=== PATIENT | female | born 1970 | race Caucasian/White ===

== ENCOUNTER 2016-05-28 08:22 | Inpatient (IN) | payer OTHER, MEDICARE ==
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
[2016-05-28] MEDS ORDERED: LORazepam 2 MG/ML VIAL IM ONE (09:15)
[2016-05-28] MEDS ORDERED: HALOPERIDOL LACTATE 5 MG/ML AMP IM ONE (09:15)
[2016-05-28] MEDS ORDERED: diphenhydrAMINE HCL 50 MG/ML VIAL IM ONE (09:15)
[2016-05-28 09:41] LABS: BACTERIA, URINE MANY /hpf; BLOOD, URINE NEG (NEG); COMMENT (UR) CULTURE INDICATED; CULTURE IF INDICATED CULTURE INDICATED; GLUCOSE,URINE NEG (NEG); HYALINE CAST, URINE 71 /lpf (RARE); KETONE, URINE TRACE mg/dL (NEG); MUCUS URINE MANY /lpf (OCC); NITRITE,URINE NEG (NEG); PH, URINE 5.5 (5.0-8.5); SQUAMOUS EPITHELIAL CELL URINE 38 /hpf (0-5); URINE COLOR YELLOW (YELLW/STRAW)
[2016-05-28 10:14] LABS: AMPHETAMINE, URINE NEG (NEG); BARBITURATES, URINE NEG (NEG); COCAINE, URINE NEG (NEG)
[2016-05-28 11:00] VITALS: BP 140/83; PULSE 100; RESP 20; TEMP 98.6; O2SAT 98
[2016-05-28 14:59] VITALS: BP 156/72; PULSE 86; RESP 16; O2SAT 98
[2016-05-28 20:43] LABS: AUTOMATED NEUTROPHIL # 10.9 TH/MM3 (1.8-7.7); BASOPHIL # 0.1 TH/MM3 (0-0.2); BASOPHIL % 0.6 % (0.0-2.0); EOSINOPHIL % 0.1 % (0.0-4.0); HEMATOCRIT 40.4 % (35.0-46.0); HEMO FLAGS DIFF FINAL; LYMPH % 20.1 % (9.0-44.0); LYMPHOCYTE # 3.1 TH/MM3 (1.0-4.8); MEAN CELL VOLUME 91.3 FL (80.0-100.0); MEAN CORPUSCULAR HEMOGLOBIN 29.6 PG (27.0-34.0); MEAN CORPUSCULAR HGB CONC 32.4 % (32.0-36.0); MONO % 8.9 % (0.0-8.0); NEUT % 70.3 % (16.0-70.0); PLATELET COUNT 305 TH/MM3 (150-450); RED BLOOD COUNT 4.42 MIL/MM3 (4.00-5.30); RED CELL DISTRIBUTION WIDTH 14.8 % (11.6-17.2); WHITE BLOOD COUNT 15.5 TH/MM3 (4.0-11.0)
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
[2016-05-28 21:06] LABS: ANION GAP 9 MEQ/L (5-15); AST (GOT) 21 U/L (15-37); BICARBONATE 24.4 MEQ/L (21.0-32.0); BLOOD UREA NITROGEN 6 MG/DL (7-18); CHLORIDE 103 MEQ/L (98-107); GLOMERULAR FILTRATION RATE 56 ML/MIN (>89); POTASSIUM 4.1 MEQ/L (3.5-5.1); SODIUM (NA) 136 MEQ/L (136-145)
[2016-05-28 21:09] LABS: ALKALINE PHOSPHATASE 96 U/L (45-117); ALT (GPT) 21 U/L (10-53); TOTAL BILIRUBIN ADULT 0.3 MG/DL (0.2-1.0)
[2016-05-29 02:56] VITALS: BP 118/83; PULSE 77; RESP 18; O2SAT 98
[2016-05-29 05:54] VITALS: BP 126/59; PULSE 79; RESP 18; TEMP 97.5; O2SAT 99
[2016-05-29 06:32] VITALS: BP_SYST 119; BP_SYST 124; BP_DIAS 56; BP_DIAS 80; PULSE 19; PULSE 72; PULSE 79; RESP 18; RESP 19; O2SAT 100; O2SAT 99
[2016-05-29 09:32] VITALS: BP 127/91; PULSE 108; RESP 18; O2SAT 97
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
[2016-05-29] MEDS ORDERED: LORazepam 2 MG/ML VIAL IV ONE (11:45)
[2016-05-29] MEDS ORDERED: LORazepam 2 MG/ML VIAL IM ONE ×2 (11:45→17:45)
[2016-05-29] MEDS ORDERED: diphenhydrAMINE HCL 50 MG/ML VIAL IM ONE ×2 (11:45→17:45)
[2016-05-29] MEDS ORDERED: ZIPRASIDONE MESYLATE 20 MG VIAL IM ONE ×2 (11:45→17:45)
[2016-05-29] MEDS ORDERED: MAGNESIUM HYDROXIDE SUSP 30 ML CUP PO PRN (16:15)
[2016-05-29] MEDS ORDERED: LORazepam 2 MG/ML VIAL IM PRN ×2 (16:15)
[2016-05-29] MEDS ORDERED: LORazepam 0.5 MG TAB PO PRN (16:15)
[2016-05-29] MEDS ORDERED: LORazepam 1 MG TAB PO PRN (16:15)
[2016-05-29] MEDS ORDERED: ALUMINUM/MAGNESIUM/SIMETH 30 ML CUP PO PRN (16:15)
[2016-05-29 18:45] VITALS: BP 143/70; PULSE 94; RESP 18; TEMP 97.7; O2SAT 98
[2016-05-30 06:09] VITALS: BP 174/76; PULSE 85; RESP 16; O2SAT 96
[2016-05-30] MEDS ORDERED: LORazepam 2 MG/ML VIAL IM ONE (09:00)
[2016-05-30] MEDS ORDERED: NICOTINE 21 MG/24 HR PATCH T-DERMAL SCH (09:00)
[2016-05-30] MEDS ORDERED: diphenhydrAMINE HCL 50 MG/ML VIAL IM ONE (09:00)
[2016-05-30] MEDS ORDERED: HALOPERIDOL LACTATE 5 MG/ML AMP IM ONE (09:00)
--- NOTE | 2016-05-30 12:12 | HHI.HP ---
Provisional Diagnosis Admission Date May 29, 2016 at 16:07 [place] I. 1. Schizophrenia, disorganized type, acute exacerbation [place] II. Deferred [place] V. GAF is 30 presently Certification of Person's Competence To Provide Express and Informed Consent I have personally examined Buddy Murguia , a person being served at [facility] on, May 30, 2016 12:12. Express and informed consent means consent voluntarily given in writing, by a competent person, after sufficient explanation and disclosure of the subject matter involved to enable the person to make a knowing and willful decision without any element of force, fraud, deceit, duress, or other form of constraint or coercion. This person is 18 years of age or older, is not now known to be incompetent to consent to treatment with a guardian advocate, and does not have a health care surrogate or proxy currently making medical treatment decisions. I have found this person to be one of the following: [] Competent to provide express and informed consent, as defined above, for voluntary admission to this facility and is competent to provide express and informed consent for treatment. He/she has the consistent capacity to make well reasoned, willful, and knowing decisions concerning his or her medical or mental health treatment. The person fully and consistently understands the purpose of the admission for examination/placement and is fully capable of personally exercising all rights assured under [place] [x] Incompetent to provide express and informed consent to voluntary admission, and this is incompetent to provide express and informed consent to treatment. The person must be transferred to involuntary status and a petition for a guardian advocate filed with the Circuit Court. [] Refusing to provide express and informed consent to voluntary admission but is competent to provide express and informed consent for treatment. The person must be discharged or transferred to involuntary status. Form shall be completed within 24 hours of a person's arrival at the receiving facility and filed in the clinical record of each person: 1. Admitted on a voluntary basis 2. Permitted to provide express and informed consent to his/her own treatment 3. Allowed to transfer from involuntary to voluntary status 4. Prior to permitting a person to consent to his or her own treatment after having been previously found incompetent to consent to treatment. History of Present Illness Capacity: Lacks Capacity HPI Ms. Dior is a 57-year-old female with a history of schizophrenia who was brought into the ED by caregivers from her custodial. Patient had apparently been having issues with severe agitation at the custodial and was extremely agitated in the ED requiring multiple PRNs. There may have been some degree of medication nonadherence. Patient was placed under a Ban[place] act by ED provider. Hope had been to stabilize the patient's condition in the ED to allow her to return to her facility, but unfortunately facility declined to accept the patient back. Patient is unable to care for herself and remains quite agitated and therefore has been admitted to the inpatient psychiatric unit. Reviewing the electronic medical record, it appears this is patient's first visit to [place]. Patient seen and examined with nurse. Chart reviewed. Case discussed with nursing staff. Prior to my arrival on the unit, the patient had grown extremely agitated again. Her behavior has apparently been very disorganized, for example urinating in the corner of her room. I ordered her medicated with Haldol 10 mg, Ativan 2 mg and Benadryl 50 mg IM stat. Upon my arrival on the unit a little while later, the patient has calmed significantly. She presents as quite childlike. When I ask why she has come into the hospital, she says "I' m not exactly sure." Her thought process is fairly disorganized. She denies any side effects from her PRNs. She denies any AVH but appears a little internally preoccupied. She denies any SI or HI. I do note there is a puddle of urine on the floor. She appears extremely disheveled and her room is in general disarray. Psychiatric interview is limited because of severity of patient's psychiatric symptoms. I obtained collateral information from patient's mother and stepfather at [phone]. They note that the patient has a long history of schizophrenia, diagnosed in adolescence, and has had multiple admissions to the [facility]. She has no history of suicide attempts. Her biological [facility] and likely had schizophrenia. Patient had normal pre-morbid development and IQ. Step-mother notes that she had no real prior issue with violence but the last 3 placements she had, she lost secondary to aggressive behavior. She notes patient does well with the clozapine but has had issues with non-adherence in the past. I am unable to obtain any past psychiatric, family, chemical dependency or social history from the patient because of her degree of psychiatric impairment at present. Review of Systems ROS Limitations: Psychotic, Poor Historian Except as stated in HPI: all other systems reviewed are Neg Past Psych History Psychological trauma history No reported trauma history to me Violence risk - others (6 mos) Elevated. Apparently, patient has of late been having issues with violent behavior. Violence risk - self (6 mos) Indeterminate. Patient denies SI and has no reported history of suicide attempts but is fairly unpredictable at present. Substance Abuse History Drugs/Alcohol past 12 months No known history of substance use issues Past Family Social History Coded Allergies: No Known Allergies (Unverified , 05/28/16) Past Medical History See EMR Reported Medications Oyster Shell (Oyster Calcium)500 Mg Tab1 Tab PO BID 05/28/16 Amlodipine 5 Mg Tab5 Mg PO DAILY #30 TAB Ref 0 05/28/16 Docusate Sodium 100 Mg Lxy825 Mg PO BID #60 CAP Ref 0 05/28/16 [place] Carbonate ER 450 Mg Cvl381 Mg PO HS Ref 0 05/28/16 [place] Carbonate ER 450 Mg Gbc348 Mg PO DAILY Ref 0 05/28/16 Trazodone 100 Mg Zct462 Mg PO HS #30 TAB Ref 0 05/28/16 Quetiapine 400 Mg Prn483 Mg PO BID #60 TAB Ref 0 05/28/16 Current Medications Medications (Trade) Dose Ordered Sig/Twila Route Start Time Stop Time Status Last Admin (Ativan) 1 mg Q6H PRN PO 05/29/16 16:15 (Ativan Inj) 1 mg Q6H PRN IM 05/29/16 16:15 (Ativan) 0.5 mg Q12H PRN PO 05/29/16 16:15 (Ativan Inj) 0.5 mg Q12H PRN IM 05/29/16 16:15 (Tylenol) 650 mg Q4H PRN PO 05/29/16 16:15 (Milk Of Magnesia Liq) 30 ml DAILY PRN PO 05/29/16 16:15 (Mag-Al Plus Susp Liq) 30 ml Q6H PRN PO 05/29/16 16:15 Family History See above Social History See above Patient's Strengths (min. 2) Supportive family. In a monitored setting. Physical Exam Physical examination was completed by the ED provider. On my examination today , the patient appears to be well-nourished and well-developed if somewhat disheveled and in no acute physical distress. No motor abnormalities noted. In particular no hand tremor, no dystonia, no dyskinesia noted. No cogwheeling or hypomimia. Vital Signs Vital Signs Date Time Temp Pulse Resp B/P Pulse Ox O2 Delivery O2 Flow Rate FiO2 05/30/16 06:09 85 16 174/76 96 05/29/16 18:45 97.7 05/29/16 09:32 Room Air Lab Results Item Value Date Time White Blood Count 15.5 TH/MM3 H 05/28/162029 Hemoglobin 13.1 GM/DL 05/28/162029 Platelet Count 305 TH/MM3 05/28/162029 Neutrophils # (Auto) 10.9 TH/MM3 H 05/28/162029 Sodium Level 136 MEQ/L 05/28/162029 Potassium Level 4.1 MEQ/L 05/28/162029 Chloride Level 103 MEQ/L 05/28/162029 Blood Urea Nitrogen 6 MG/DL L 05/28/162029 Creatinine 1.02 MG/DL H 05/28/162029 Random Glucose 130 MG/DL H 05/28/162029 Aspartate Amino Transf (AST/SGOT) 21 U/L 05/28/162029 Alanine Aminotransferase (ALT/SGPT) 21 U/L 05/28/162029 Alkaline Phosphatase 96 U/L 05/28/162029 [place] Level 0.7 MEQ/L 05/28/162029 Toxicology was negative. Patient has no signs or symptoms of infection. ANC is adequate for clozapine therapy. Urinalysis was concerning for possible UTI but urine culture revealed only mixed huong. Mental Status Examination Patient is casually dressed. She is fairly disheveled. She is awake and alert and oriented to person and hospital. No motor abnormalities noted. Speech is within normal limits for rate, tone and volume. Language and fund of knowledge seem reduced. Mood is fair and affect is childlike. Thought process disorganized. Associations somewhat loose. No josue delusions. Denies AVH but appears a little internally preoccupied. Denies SI or HI but is unreliable to contract for safety. Insight and judgment are poor. Assessment & Plan Problem List: (1) Schizophrenia ICD Code: F20.9 Assessment & Plan This is a 57-year-old female with psychiatric history as detailed above who is presently admitted to the inpatient psychiatric unit under a [place] act. Patient was apparently having issues with agitation at her facility, which continued while she was in the ED and now on the inpatient unit. There may be some issue with medication nonadherence, although her lithium level suggests at least some degree of medication adherence. I have reviewed the medication list from patient's facility, and we will try as a first step resuming most of her prescribed medications. Additional psychotropics may be necessary however, and we could also consider a long-acting injectable antipsychotic. Patient requires psychiatric admission at this time for safety, observation and stabilization. Admit inpatient. Involuntary status. I've completed first opinion. Consult for second opinion. Request healthcare surrogate and guardian advocate. Recheck CBC now along with bHCG. Check TFTs, lipid panel and HgbA1c tomorrow morning. Continue clozapine 200/100/200mg. CBC in 1 week. Continue lithium 450/900mg. Plan to check a level and repeat BMP end of the week. Continue trazodone 50mg qHS. I will hold the Seroquel to see if we can avoid unnecessary antipsychotic polypharmacy. Haldol as needed for agitation, Ativan as needed for anxiety, Cogentin as needed for EPS. Continue amlodipine. Continue Colace. Violent/assaultive precautions. Vitals every shift. Counselor to see. Disposition planning. Estimated length of stay: 1 to 2 months as it sounds like new placement will be required. Discharge Planning Pending psychiatric stabilization. Request HC Surrog/Guard Advoc?: Yes Problem Qualifiers (1) Schizophrenia: Qualified Code: F20.1 - Disorganized schizophrenia Cam Arshad MD May 30, 2016 12:12
[2016-05-30] MEDS ORDERED: BENZTROPINE MESYLATE 1 MG TAB PO PRN (12:45)
--- NOTE | 2016-05-30 16:10 | PD.CONS ---
Provisional Diagnosis Admission Date May 29, 2016 at 16:07 [place] I. 1. Schizophrenia, disorganized type, acute exacerbation [place] II. Deferred [place] V. GAF is 30 presently History of Present Illness Service Psychiatry Consult Requested By Primary Care Physician Unknown HPI As per Dr. Arshad documentation " Ms. Dior is a 57-year-old female with a history of schizophrenia who was brought into the ED by caregivers from her skilled nursing. Patient had apparently been having issues with severe agitation at the skilled nursing and was extremely agitated in the ED requiring multiple PRNs. There may have been some degree of medication nonadherence. Patient was placed under a [place] act by ED provider. Hope had been to stabilize the patient's condition in the ED to allow her to return to her facility, but unfortunately facility declined to accept the patient back. Patient is unable to care for herself and remains quite agitated and therefore has been admitted to the inpatient psychiatric unit. Reviewing the electronic medical record, it appears this is patient's first visit to [place].Patient seen and examined with nurse. Chart reviewed. Case discussed with nursing staff. Prior to my arrival on the unit, the patient had grown extremely agitated again. Her behavior has apparently been very disorganized, for example urinating in the corner of her room. I ordered her medicated with Haldol 10 mg, Ativan 2 mg and Benadryl 50 mg IM stat. Upon my arrival on the unit a little while later, the patient has calmed significantly. She presents as quite childlike. When I ask why she has come into the hospital, she says "I' m not exactly sure." Her thought process is fairly disorganized. She denies any side effects from her PRNs. She denies any AVH but appears a little internally preoccupied. She denies any SI or HI. I do note there is a puddle of urine on the floor. She appears extremely disheveled and her room is in general disarray. Psychiatric interview is limited because of severity of patient's psychiatric symptoms. I obtained collateral information from patient' s mother and stepfather at [phone]. They note that the patient has a long history of schizophrenia, diagnosed in adolescence, and has had multiple admissions to the [facility]. She has no history of suicide attempts. Her biological mother committed herself to the [facility] and likely had schizophrenia. Patient had normal pre-morbid development and IQ. Step-mother notes that she had no real prior issue with violence but the last 3 placements she had, she lost secondary to aggressive behavior. She notes patient does well with the clozapine but has had issues with non-adherence in the past. Today on psychotic evaluation patient is found in her room in the psychiatric unit, she reports feeling better, she reports good mood, patient is unable to elaborate about the circumstances that brought her to the hospital. She states that she was brought to the hospital because she was no doing well. She denies depressive symptoms, she denies suicidal and homicidal ideation, she denies visual and auditory hallucinations. Patient is fully oriented 3, with very concrete thought process and limited cognition. Review of Systems Constitutional: DENIES: Diaphoretic episodes, Fatigue, Fever, Weight gain, Weight loss, Chills, Dizziness, Change in appetite, Night Sweats Endocrine: DENIES: Abnorml menstrual pattern, Heat/cold intolerance, Polydipsia , Polyuria, Polyphagia Eyes: DENIES: Blurred vision, Diplopia, Eye inflammation, Eye pain, Vision loss , Photosensitivity, Double Vision Ears, nose, mouth, throat: DENIES: Tinnitus, Hearing loss, Vertigo, Nasal discharge, Oral lesions, Throat pain, Hoarseness, Ear Pain, Running Nose, Epistaxis, Sinus Pain, Toothache, Odynophagia Respiratory: DENIES: Apneas, Cough, Snoring, Wheezing, Hemoptysis, Sputum production, Shortness of breath Cardiovascular: DENIES: Chest pain, Palpitations, Syncope, Dyspnea on Exertion , PND, Lower Extremity Edema, Orthopnea, Claudication Genitourinary: DENIES: Abnormal vaginal bleeding, Dysmenorrhea, Dyspareunia, Sexual dysfunction, Urinary frequency, Urinary incontinence, Urgency, Hematuria , Dysuria, Nocturia, Vaginal discharge Musculoskeletal: DENIES: Joint pain, Muscle aches, Stiffness, Joint Swelling, Back pain, Neck pain Integumentary: DENIES: Abnormal pigmentation, Pruritus, Rash, Nail changes, Breast masses, Breast skin changes, Nipple discharge Hematologic/lymphatic: DENIES: Bruising, Lymphadenopathy Immunologic/allergic: DENIES: Eczema, Urticaria Neurologic: DENIES: Abnormal gait, Headache, Localized weakness, Paresthesias, Seizures, Speech Problems, Tremor, Poor Balance Psychiatric: DENIES: Anxiety, Confusion, Mood changes, Depression, Hallucinations, Agitation, Suicidal Ideation, Homicidal Ideation, Delusions Past Family Social History Coded Allergies: No Known Allergies (Unverified , 05/28/16) Reported Medications Oyster Shell (Oyster Calcium)500 Mg Tab1 Tab PO BID 05/28/16 Amlodipine 5 Mg Tab5 Mg PO DAILY #30 TAB Ref 0 05/28/16 Docusate Sodium 100 Mg [id number] Mg PO BID #60 CAP Ref 0 05/28/16 [place] Carbonate ER 450 Mg [id number] Mg PO HS Ref 0 05/28/16 [place] Carbonate ER 450 Mg Okf374 Mg PO DAILY Ref 0 05/28/16 Trazodone 100 Mg Yvo130 Mg PO HS #30 TAB Ref 0 05/28/16 Quetiapine 400 Mg Fpq870 Mg PO BID #60 TAB Ref 0 05/28/16 Current Medications Medications (Trade) Dose Ordered Sig/Twila Route Start Time Stop Time Status Last Admin (Tylenol) 650 mg Q4H PRN PO 05/29/16 16:15 (Milk Of Magnesia Liq) 30 ml DAILY PRN PO 05/29/16 16:15 (Mag-Al Plus Susp Liq) 30 ml Q6H PRN PO 05/29/16 16:15 (Ativan) 2 mg Q6H PRN PO 05/30/16 16:15 (Ativan Inj) 2 mg Q6H PRN IM 05/30/16 16:15 (Cogentin) 1 mg Q12HR PRN PO 05/30/16 12:45 (Cogentin Inj) 1 mg Q12HR PRN IM 05/30/16 12:45 (Haldol) 5 mg Q8H PRN PO 05/30/16 12:45 (Haldol Inj) 5 mg Q8H PRN IM 05/30/16 12:45 (Eskalith Sr) 450 mg DAILY PO 05/31/16 09:00 (Eskalith Sr) 900 mg HS PO 05/30/16 21:00 (Clozaril) 200 mg BID PO 05/30/16 21:00 (Clozaril) 100 mg DAILY@12 PO 05/31/16 12:00 (Colace) 100 mg BID PO 05/30/16 21:00 (Norvasc) 5 mg DAILY PO 05/31/16 09:00 (Desyrel) 50 mg HS PO 05/30/16 21:00 (Theragran) 1 tab DAILY PO 05/31/16 09:00 Patient's Strengths (min. 2) Supportive family. In a monitored setting. Physical Exam Vital Signs Vital Signs Date Time Temp Pulse Resp B/P Pulse Ox O2 Delivery O2 Flow Rate FiO2 05/30/16 06:09 85 16 174/76 96 05/29/16 18:45 97.7 05/29/16 09:32 Room Air Mental Status Examination Appearance Overweight woman, in street clothing, she is calm, superficially cooperative Assessment & Plan Problem List: (1) Schizophrenia ICD Code: F20.9 Assessment & Plan Estimated LOS: days Request HC Surrog/Guard Advoc?: Yes Problem Qualifiers (1) Schizophrenia: Qualified Code: F20.1 - Disorganized schizophrenia Avinash Son MD May 30, 2016 16:09
[2016-05-30 17:41] VITALS: BP 136/60; PULSE 89; RESP 17; TEMP 98.1; O2SAT 97
[2016-05-30] MEDS: DOCUSATE SODIUM 100 MG CAP PO SCH (20:40)
[2016-05-30] MEDS: cloZAPine 100 MG TAB PO SCH (20:40)
[2016-05-30] MEDS ORDERED: LITHIUM CARBONATE 450 MG CONTROLLED RELEASE TAB PO SCH (21:00)
[2016-05-30] MEDS ORDERED: traZODone HCL 50 MG TAB PO SCH (21:00)
[2016-05-31 06:13] VITALS: BP 139/62; PULSE 82; RESP 17; TEMP 98.3; O2SAT 96
[2016-05-31] MEDS ORDERED: LITHIUM CARBONATE 450 MG CONTROLLED RELEASE TAB PO SCH (09:00)
[2016-05-31] MEDS: cloZAPine 100 MG TAB PO SCH ×2 (09:00→20:43)
[2016-05-31] MEDS: amLODIPine BESYLATE 5 MG TAB PO SCH (09:00)
[2016-05-31] MEDS: MULTIVITAMIN TAB PO SCH (09:00)
[2016-05-31] MEDS: DOCUSATE SODIUM 100 MG CAP PO SCH ×2 (09:00→20:42)
--- NOTE | 2016-05-31 11:32 | HHI.PYPN ---
Subjective Remarks Patient seen and examined. Chart reviewed. Case discussed with nursing staff. Patient reportedly refused laboratories this morning and does not think that she needs to be in the hospital. She has been in fairly good behavioral control at this point. Medications are on hold awaiting consent. On my examination this morning, patient is sitting in the day area. Patient denies any psychiatric symptomatology. No SI or HI. Denies AVH. Says "I don't think I need medications. I don't have a mental illness." Review of Systems ROS Limitations: Psychotic, Poor Historian Except as stated in HPI: all other systems reviewed are Neg Objective Alert: Yes [place]: Person, Place (at least) Mood: Calm Affect: Other (childlike) Memory Intact: Comment (not formally assessed) Hallucinations: Other (internally preoccupied) Delusions: Yes Delusion Type: Paranoid Suicidal: Ideation Homicidal: Ideation (no HI) Insight/Judgement Very poor Remarks No motor abnormalities noted. Labs Date/Time Procedure Status Source Growth 05/28/16 09:10 Urine Culture - Final Complete Urine Clean Catch 10-50,000 CFU/ML MIXED GRAM POSITIVE ... Labs reviewed. Vitals/IOs Vital Signs Date Time Temp Pulse Resp B/P Pulse Ox O2 Delivery O2 Flow Rate FiO2 05/31/16 06:13 98.3 82 17 139/62 96 05/29/16 09:32 Room Air Assessment & Plan Problem List: (1) Schizophrenia ICD Code: F20.9 Assessment & Plan Nurse will call for consent for medications today. I do anticipate the patient may refuse these as her insight into illness is quite poor. If this is the case , we may opt to add in some Haldol PO/IM as she seems to respond nicely to this medication. Continue to monitor on the inpatient unit in the meantime. Continue other medications and care as ordered. Justification for Cont. Inpt. Impairment in reality construction. Impairment in self-care. Impairment in social functioning. High risk for decompensation in a less restrictive environment. Discharge Planning Placement following psychiatric stabilization. Request HC Surrog/Guard Advoc?: Yes Problem Qualifiers (1) Schizophrenia: Qualified Code: F20.1 - Disorganized schizophrenia Cam Arshad MD May 31, 2016 11:32
[2016-05-31] MEDS ORDERED: cloZAPine 100 MG TAB PO SCH (12:00)
[2016-05-31] MEDS ORDERED: HALOPERIDOL LACTATE 5 MG/ML AMP IM STA (13:03)
[2016-05-31] MEDS ORDERED: LORazepam 2 MG/ML VIAL IM ONE (13:15)
[2016-05-31] MEDS ORDERED: diphenhydrAMINE HCL 50 MG/ML VIAL IM ONE (13:15)
[2016-05-31 17:57] VITALS: BP 130/59; PULSE 84; RESP 18; TEMP 98.4; O2SAT 97
[2016-05-31] MEDS ORDERED: traZODone HCL 50 MG TAB PO SCH (21:00)
[2016-06-01 05:38] VITALS: BP 129/77; PULSE 100; RESP 18; TEMP 97.4; O2SAT 98
[2016-06-01] MEDS: MULTIVITAMIN TAB PO SCH (09:00)
[2016-06-01] MEDS: cloZAPine 100 MG TAB PO SCH (09:00)
[2016-06-01] MEDS ORDERED: LITHIUM CARBONATE 450 MG CONTROLLED RELEASE TAB PO SCH (09:00)
[2016-06-01] MEDS: DOCUSATE SODIUM 100 MG CAP PO SCH ×2 (09:00→20:15)
[2016-06-01] MEDS: amLODIPine BESYLATE 5 MG TAB PO SCH (09:00)
--- NOTE | 2016-06-01 10:06 | HHI.PYPN ---
Subjective Remarks Patient seen and examined with counselor and nurse. Chart reviewed. Case discussed with nursing staff reports that we did obtain consent for patient's medications, but she unfortunately has been declining to take them. On my examination today, the patient continues to deny that she has a mental illness. She says that she will not take meds for this reason. She is somewhat internally preoccupied and fairly childlike on examination but presently calm. Review of Systems ROS Limitations: Poor Historian Except as stated in HPI: all other systems reviewed are Neg Objective Alert: Yes [place]: Person, Place Mood: Calm Affect: Other (remains childlike) Memory Intact: Comment (not formally assessed) Hallucinations: Other (remains somewhat internally preoccupied) Delusions: No Delusion Type: Other (none elicited today) Suicidal: Ideation (no SI) Homicidal: Ideation (no HI) Insight/Judgement Poor Remarks No motor abnormalities noted. Grooming and hygiene fair at best. Labs Date/Time Procedure Status Source Growth 05/28/16 09:10 Urine Culture - Final Complete Urine Clean Catch 10-50,000 CFU/ML MIXED GRAM POSITIVE ... Labs reviewed. Vitals/IOs Vital Signs Date Time Temp Pulse Resp B/P Pulse Ox O2 Delivery O2 Flow Rate FiO2 05/31/16 17:57 98.4 84 18 130/59 97 05/29/16 09:32 Room Air Assessment & Plan Problem List: (1) Schizophrenia ICD Code: F20.9 Assessment & Plan Patient is refusing to accept oral psychotropics, and her existing psychotropic medications lithium and clozapine have no IM options. She has been responding nicely to Haldol when used as an ETO on the unit. I will start a scheduled Haldol titration PO with IM backup through the weekend with plans for Haldol Dec if this agent is efficacious. May consider re-introducing prior to admission medications if needed later if she gains some insight into the need for medications with the benefit of Haldol. Continue to monitor on the high acuity unit. Continue other medications and care as ordered. Justification for Cont. Inpt. Impairment in reality construction. Medication changes and process. High risk for decompensation in a less restrictive environment. Discharge Planning Placement following psychiatric stabilization. Request HC Surrog/Guard Advoc?: Yes Problem Qualifiers (1) Schizophrenia: Qualified Code: F20.1 - Disorganized schizophrenia Cam Arshad MD Jun 01, 2016 10:06
[2016-06-01] MEDS ORDERED: HALOPERIDOL LACTATE 5 MG/ML AMP IM PRN (10:15)
[2016-06-01] MEDS ORDERED: cloZAPine 100 MG TAB PO SCH (12:00)
[2016-06-01 18:00] VITALS: BP 162/96; PULSE 91; RESP 18; TEMP 98.3; O2SAT 98
[2016-06-01] MEDS: HALOPERIDOL 5 MG TAB PO SCH (20:15)
[2016-06-02] MEDS: diphenhydrAMINE HCL 50 MG CAP PO PRN (01:38)
[2016-06-02 05:54] VITALS: BP 137/84; PULSE 78; RESP 18; TEMP 97.3; O2SAT 99
[2016-06-02] MEDS: DOCUSATE SODIUM 100 MG CAP PO SCH ×2 (08:50→21:16)
[2016-06-02] MEDS: HALOPERIDOL 5 MG TAB PO SCH ×2 (08:50→21:16)
[2016-06-02] MEDS: amLODIPine BESYLATE 5 MG TAB PO SCH (08:50)
[2016-06-02] MEDS: MULTIVITAMIN TAB PO SCH (08:50)
--- NOTE | 2016-06-02 11:51 | HHI.PYPN ---
Subjective Remarks Continues to be markedly resistant to treatment, including taking her medications. Insight and judgment are markedly impaired. Does not acknowledge her own mental illness. Review of Systems ROS Limitations: Clinical Condition Objective Alert: Yes [place]: Person, Place Mood: Oppositional Affect: Restricted, Other (remains childlike) Memory Intact: Comment (not formally assessed) Hallucinations: Other (remains somewhat internally preoccupied) Delusions: Yes Delusion Type: Other (none elicited today) Suicidal: Ideation (no SI) Homicidal: Ideation (no HI) Insight/Judgment Markedly impaired Vitals/IOs Vital Signs Date Time Temp Pulse Resp B/P Pulse Ox O2 Delivery O2 Flow Rate FiO2 06/02/16 05:54 97.3 78 18 137/84 99 05/29/16 09:32 Room Air Assessment & Plan Problem List: (1) Schizophrenia ICD Code: F20.9 Assessment & Plan Estimated LOS: 7 days patient continues to be oppositional and noncompliant with poor judgment and poor insight. Does not acknowledge her own mental illness of schizophrenia and does not wish to comply with taking medications as ordered. Justification for Cont. Inpt. Patient remains psychotic and unable to care for herself. Request HC Surrog/Guard Advoc?: Yes Problem Qualifiers (1) Schizophrenia: Qualified Code: F20.1 - Disorganized schizophrenia Wilberto Sheridan MD Jun 02, 2016 11:50
[2016-06-02 19:01] VITALS: BP 156/72; PULSE 74; RESP 18; TEMP 97.9; O2SAT 98
[2016-06-03 05:51] VITALS: BP 142/76; PULSE 83; RESP 16; TEMP 97.7; O2SAT 100
[2016-06-03 09:13] LABS: BICARBONATE 24.3 MEQ/L (21.0-32.0); POTASSIUM 3.9 MEQ/L (3.5-5.1)
[2016-06-03] MEDS: MULTIVITAMIN TAB PO SCH (10:03)
[2016-06-03] MEDS: HALOPERIDOL 5 MG TAB PO SCH ×2 (10:03→21:46)
[2016-06-03] MEDS: amLODIPine BESYLATE 5 MG TAB PO SCH (10:03)
[2016-06-03] MEDS: DOCUSATE SODIUM 100 MG CAP PO SCH ×2 (10:03→21:46)
[2016-06-03 17:00] VITALS: BP 131/77; PULSE 85; RESP 24; TEMP 98; O2SAT 98
--- NOTE | 2016-06-03 17:54 | HHI.PYPN ---
Subjective Remarks Patient was seen and case discussed with nursing. Patient is at times not adherent with medication spitting it out but compliant with instructions to take it afterwards. She remains internally stimulated and laughs inappropriately at various comments. It was noted that on May 28 her UA suggested a culture no repeated today. Insight remains poor and cognitive delay is evident Objective Alert: Yes [place]: Person, Place Mood: Oppositional Affect: Blunted, Other (remains childlike) Memory Intact: Comment (not formally assessed) Hallucinations: Other (internally preoccupied) Delusions: Yes Delusion Type: Other (none elicited today) Suicidal: Ideation (no SI) Homicidal: Ideation (no HI) Insight/Judgment Poor Labs Test 06/03/16 07:50 Sodium Level 142 MEQ/L Potassium Level 3.9 MEQ/L Chloride Level 109 MEQ/L Carbon Dioxide Level 24.3 MEQ/L Anion Gap 9 MEQ/L Blood Urea Nitrogen 9 MG/DL Creatinine 0.70 MG/DL Estimat Glomerular Filtration 87 ML/MIN Rate Random Glucose 101 MG/DL Calcium Level 9.0 MG/DL Beta HCG, Qualitative LESS THAN 1 MIU/ML Jal Level LESS THAN 0.1 MEQ/L Vitals/IOs Vital Signs Date Time Temp Pulse Resp B/P Pulse Ox O2 Delivery O2 Flow Rate FiO2 06/03/16 17:00 98.0 85 24 131/77 98 Assessment & Plan Problem List: (1) Schizophrenia ICD Code: F20.9 Assessment & Plan Continue current treatment plan Justification for Cont. Inpt. Patient will decompensate in a less restrictive setting Request HC Surrog/Guard Advoc?: Yes Problem Qualifiers (1) Schizophrenia: Qualified Code: F20.1 - Disorganized schizophrenia Carlos Larry DO Jun 03, 2016 17:54
[2016-06-03 20:58] LABS: AUTOMATED NEUTROPHIL # 8.5 TH/MM3 (1.8-7.7); BASOPHIL # 0.1 TH/MM3 (0-0.2); BASOPHIL % 0.6 % (0.0-2.0); HEMO FLAGS DIFF FINAL; LYMPH % 28.1 % (9.0-44.0); LYMPHOCYTE # 3.7 TH/MM3 (1.0-4.8); MEAN CELL VOLUME 90.3 FL (80.0-100.0); MEAN CORPUSCULAR HEMOGLOBIN 30.7 PG (27.0-34.0); MONO % 7.5 % (0.0-8.0); NEUT % 63.8 % (16.0-70.0); PLATELET COUNT 317 TH/MM3 (150-450); RED BLOOD COUNT 4.09 MIL/MM3 (4.00-5.30); RED CELL DISTRIBUTION WIDTH 15.5 % (11.6-17.2); WHITE BLOOD COUNT 13.3 TH/MM3 (4.0-11.0)
[2016-06-04 05:46] VITALS: BP 136/74; PULSE 90; RESP 17; TEMP 97.1; O2SAT 98
[2016-06-04] MEDS: amLODIPine BESYLATE 5 MG TAB PO SCH (09:04)
[2016-06-04] MEDS: HALOPERIDOL 5 MG TAB PO SCH ×2 (09:04→21:40)
[2016-06-04] MEDS: MULTIVITAMIN TAB PO SCH (09:04)
[2016-06-04] MEDS: DOCUSATE SODIUM 100 MG CAP PO SCH ×2 (09:05→21:39)
--- NOTE | 2016-06-04 18:55 | HHI.PYPN ---
Subjective Remarks Patient was seen and case discussed with nursing. Urinalysis is still pending. Today patient is markedly more seclusive. She was asked if she had any triggering event and she answers no. She is flat, hyperverbal, with poor eye contact. She is stated in her room all day and not had any meals whatsoever. Denies suicidal ideation intent or plan. Compliant with medications Objective Alert: Yes [place]: Person, Place Mood: Depressed Affect: Flat, Other (remains childlike) Memory Intact: Comment (not formally assessed) Hallucinations: Other (internally preoccupied) Delusions: Yes Delusion Type: Other (none elicited today) Suicidal: Ideation (no SI) Homicidal: Ideation (no HI) Insight/Judgment Poor Labs Test 06/03/16 20:12 White Blood Count 13.3 TH/MM3 Red Blood Count 4.09 MIL/MM3 Hemoglobin 12.6 GM/DL Hematocrit 37.0 % Mean Corpuscular Volume 90.3 FL Mean Corpuscular Hemoglobin 30.7 PG Mean Corpuscular Hemoglobin 34.0 % Concent Red Cell Distribution Width 15.5 % Platelet Count 317 TH/MM3 Mean Platelet Volume 10.8 FL Neutrophils (%) (Auto) 63.8 % Lymphocytes (%) (Auto) 28.1 % Monocytes (%) (Auto) 7.5 % Eosinophils (%) (Auto) 0.0 % Basophils (%) (Auto) 0.6 % Neutrophils # (Auto) 8.5 TH/MM3 Lymphocytes # (Auto) 3.7 TH/MM3 Monocytes # (Auto) 1.0 TH/MM3 Eosinophils # (Auto) 0.0 TH/MM3 Basophils # (Auto) 0.1 TH/MM3 CBC Comment DIFF FINAL Differential Comment Vitals/IOs Vital Signs Date Time Temp Pulse Resp B/P Pulse Ox O2 Delivery O2 Flow Rate FiO2 06/04/16 05:46 97.1 90 17 136/74 98 Assessment & Plan Problem List: (1) Schizophrenia ICD Code: F20.9 Assessment & Plan Continue current treatment plan Justification for Cont. Inpt. Patient will decompensate in a less restrictive setting Request HC Surrog/Guard Advoc?: Yes Problem Qualifiers (1) Schizophrenia: Qualified Code: F20.1 - Disorganized schizophrenia Carlos Larry DO Jun 04, 2016 18:55
[2016-06-04] MEDS: diphenhydrAMINE HCL 50 MG CAP PO PRN ×2 (20:38→21:39)
[2016-06-05] MEDS: HALOPERIDOL 10 MG TAB PO PRN ×2 (04:43→14:21)
[2016-06-05] MEDS: LORazepam 1 MG TAB PO PRN ×2 (04:46→14:22)
[2016-06-05] MEDS: HALOPERIDOL 5 MG TAB PO SCH ×2 (08:26→21:51)
[2016-06-05] MEDS: DOCUSATE SODIUM 100 MG CAP PO SCH ×2 (08:26→21:51)
[2016-06-05] MEDS: MULTIVITAMIN TAB PO SCH (08:26)
[2016-06-05] MEDS: amLODIPine BESYLATE 5 MG TAB PO SCH (08:26)
--- NOTE | 2016-06-05 10:45 | HHI.PYPN ---
Subjective Remarks Patient seen and examined with counselor and nurse. Chart reviewed. Case discussed with nursing staff who reports patient has been compliant with medications and has been having fewer behavioral outbursts since she was started on the Haldol. She was reportedly complaining of some flank pain over the weekend and a hospitalist consultation has been requested. A urinalysis was ordered at the same time, but this is still listed in process and so I am not sure if it was ever collected. On my examination today, the patient is calm and pleasant as somewhat childlike. She denies any audiovisual hallucinations. No SI or HI. She is a somewhat poor historian for the review of systems but denies any dysuria or flank pain at this time. Denies side effects from medications. Review of Systems Except as stated in HPI: all other systems reviewed are Neg Objective Alert: Yes [place]: Person, Place ([place]) Mood: Calm Affect: Other (childlike) Memory Intact: Comment (not formally assessed) Hallucinations: Other (no AVH at this time) Delusions: No Delusion Type: Other (no delusions) Suicidal: Ideation (no SI) Homicidal: Ideation (no HI) Insight/Judgment Poor Remarks No motor abnormalities noted. No hand tremor, no cogwheeling, no dystonia, no dyskinesia noted. Labs Labs reviewed. Vitals/IOs Vital Signs Date Time Temp Pulse Resp B/P Pulse Ox O2 Delivery O2 Flow Rate FiO2 06/04/16 05:46 97.1 90 17 136/74 98 Assessment & Plan Problem List: (1) Schizophrenia ICD Code: F20.9 Assessment & Plan Check a urinalysis with culture. Awaiting hospitalist specialty development consultant input. Continue oral Haldol for now until we get the medical issues sorted out, and then we could consider Haldol Decanoate, hopefully within the next day or 2. Continue to monitor on the inpatient unit. Continue other medications and care as ordered. Justification for Cont. Inpt. High risk for decompensation in a less restrictive environment Discharge Planning Patient will likely require new placement. Case discussed with counselor. Request HC Surrog/Guard Advoc?: Yes Problem Qualifiers (1) Schizophrenia: Qualified Code: F20.1 - Disorganized schizophrenia Cam Arshad MD Jun 05, 2016 10:45
[2016-06-05] MEDS: ACETAMINOPHEN 325 MG TAB PO PRN ×2 (12:16→17:51)
--- NOTE | 2016-06-05 14:23 | PD.CONS ---
HPI [facility] Consult Requested By Dr. Perez Reason for Consult Medical management, elevated WBC and Right flank pain Primary Care Physician Unknown Diagnoses: History of Present Illness 57 y/o female with a history of schizophrenia [facility] due to severe agitation. She is now being managed in the psychiatric department for schizophrenia. According to psychiatry there was some nonadherence of medications at the jail. [facility] is being consulted for medical management, elevated WBC and right flank pain. According to the RN she complained of right flank pain and polyuria last night. Patient was seen and examined in her room. She states the pain in her right flank is much better, and she is able to walk with no complaints. She denies any dysuria, polyuria, fever or chills. She also denies any chest pain, sob, nausea or abdominal pain. Review of Systems Constitutional: DENIES: Fever, Chills, Dizziness Respiratory: DENIES: Cough, Shortness of breath Cardiovascular: DENIES: Chest pain, Lower Extremity Edema Gastrointestinal: DENIES: Abdominal pain, Difficulty Swallowing Genitourinary: DENIES: Urgency, Dysuria Musculoskeletal: DENIES: Back pain, Neck pain Hematologic/lymphatic: DENIES: Lymphadenopathy Immunologic/allergic: DENIES: Urticaria Neurologic: DENIES: Headache, Localized weakness Past Family Social History Allergies: Coded Allergies: No Known Allergies (Unverified , 05/28/16) Past Medical History Schizophrenia Past Surgical History Patient denies any surgical history Reported Medications Reported Meds & Active Scripts Active Reported Oyster Calcium (Oyster Shell) 500 Mg Tab 1 Tab PO BID Amlodipine (Amlodipine Besylate) 5 Mg Tab 5 Mg PO DAILY Docusate Sodium 100 Mg Cap 100 Mg PO BID [place] Carbonate ER ([place] Carbonate) 450 Mg Tab 900 Mg PO HS [place] Carbonate ER ([place] Carbonate) 450 Mg Tab 450 Mg PO DAILY Trazodone (Trazodone HCl) 100 Mg Tab 100 Mg PO HS Quetiapine (Quetiapine Fumarate) 400 Mg Tab 400 Mg PO BID Active Ordered Medications Current Medications Medications (Trade) Dose Ordered Sig/Twila Route Start Time Stop Time Status Last Admin (Tylenol) 650 mg Q4H PRN PO 05/29/16 16:15 06/05/16 12:16 (Milk Of Magnesia Liq) 30 ml DAILY PRN PO 05/29/16 16:15 (Mag-Al Plus Susp Liq) 30 ml Q6H PRN PO 05/29/16 16:15 (Ativan) 2 mg Q6H PRN PO 05/30/16 16:15 06/05/16 14:22 (Ativan Inj) 2 mg Q6H PRN IM 05/30/16 16:15 (Cogentin) 1 mg Q12HR PRN PO 05/30/16 12:45 (Cogentin Inj) 1 mg Q12HR PRN IM 05/30/16 12:45 (Haldol) 5 mg Q8H PRN PO 05/30/16 12:45 06/05/16 14:21 (Haldol Inj) 5 mg Q8H PRN IM 05/30/16 12:45 (Colace) 100 mg BID PO 05/30/16 21:00 06/05/16 08:26 (Norvasc) 5 mg DAILY PO 05/31/16 09:00 06/05/16 08:26 (Theragran) 1 tab DAILY PO 05/31/16 09:00 06/05/16 08:26 (Haldol) 10 mg Taper BID PO 06/01/16 21:00 06/14/16 20:59 06/05/16 08:26 (Haldol Inj) 10 mg Taper BID PRN IM 06/01/16 10:15 06/14/16 10:14 (Benadryl) 50 mg HS PRN PO 06/01/16 10:15 06/04/16 21:39 (Benadryl Inj) 50 mg HS PRN IM 06/01/16 10:15 Family History Patient states her parents are alive and well, denies any family history. Social History Tobacco use: Denies Alcohol use: Denies Tobacco use: Denies Physical Exam Physical Exam GENERAL: This is a well-nourished, well-developed patient, in no apparent distress. SKIN: No rashes, ecchymoses or lesions. Cool and dry. HEAD: Atraumatic. Normocephalic. No temporal or scalp tenderness. EYES: Pupils equal round and reactive. Extraocular motions intact. No scleral icterus. ENT: Nose without bleeding, purulent drainage or septal hematoma. Airway patent. NECK: Trachea midline. No JVD or lymphadenopathy. Supple. CARDIOVASCULAR: Regular rate and rhythm without murmurs, gallops, or rubs. RESPIRATORY: Clear to auscultation. Breath sounds equal bilaterally. No wheezes , rales, or rhonchi. GASTROINTESTINAL: Abdomen soft, non-tender, nondistended. BS x4. No CVA tenderness. No pain with palpation. MUSCULOSKELETAL: Extremities without clubbing, cyanosis, or edema. No joint tenderness, effusion, or edema noted. No calf tenderness. NEUROLOGICAL: Awake and alert. Motor and sensory grossly within normal limits. Five out of 5 muscle strength in all muscle groups. Normal speech. Result Diagram: 06/03/16201106/03/16 0750 Assessment and Plan Problem List: (1) Schizophrenia ICD Code: F20.9 Status: Acute (2) Elevated WBCs ICD Code: D72.829 Status: Acute (3) Right flank pain ICD Code: R10.9 Status: Acute Assessment and Plan 57 y/o female with a history of schizophrenia was brought in originally from her jail due to severe agitation. She is now being managed in the psychiatric department for schizophrenia. According to psychiatry there was some nonadherence of medications at the jail. [facility] is being consulted for medical management, elevated WBC and right flank pain. Schizophrenia, chronic -Managed by Psychiatry Elevated WBCs, no fevers Labs: WBCs 13.3 on 06/03, which is improved from 15.5 on 05/28/16 -UA pending, UA culture on 05/28/16 shows mixed huong -CBC in AM and trend Right flank pain, currently getting better, maybe muscular in nature, no cva tenderness -UA to rule out UTI -Tylenol for pain prn -If pain gets worse will obtain imaging studies if needed. DVT prophylaxis: Encourage ambulation Written by ALOK Milan acting as scribe for Dr. Church on 06/05/16 at 11:36 All or portions of this note were transcribed by scribe Terese ALLEN. I, Dr. Nelly Church personally performed the history, physical exam, and medical decision making; and confirmed the accuracy of the information in the transcribed note. Authenticated by Dr. Nelly Church on 06/05/16 at 11:36 Discussed Condition With Patient and nursing staff. Problem Qualifiers (1) Schizophrenia: Qualified Code: F20.1 - Disorganized schizophrenia Terese Velasquez Jun 05, 2016 14:23 Nelly Church MD Jun 05, 2016 16:10
[2016-06-05 16:41] LABS: BACTERIA, URINE RARE /hpf; BLOOD, URINE NEG (NEG); COMMENT (UR) CULT NOT INDICATED; CULTURE IF INDICATED CULT NOT INDICATED; GLUCOSE,URINE NEG (NEG); KETONE, URINE NEG (NEG); NITRITE,URINE NEG (NEG); PH, URINE 5.5 (5.0-8.5); SQUAMOUS EPITHELIAL CELL URINE <1 /hpf (0-5); URINE COLOR YELLOW (YELLW/STRAW)
[2016-06-05] MEDS: LORazepam 2 MG/ML VIAL IM PRN ×2 (17:51→23:42)
[2016-06-05 18:54] VITALS: BP 136/63; PULSE 95; RESP 18; TEMP 96.9; O2SAT 95
[2016-06-05] MEDS: diphenhydrAMINE HCL 50 MG CAP PO PRN (23:07)
[2016-06-05] MEDS: HALOPERIDOL LACTATE 5 MG/ML AMP IM PRN (23:41)
[2016-06-06] MEDS: ACETAMINOPHEN 325 MG TAB PO PRN ×2 (03:37→09:18)
[2016-06-06 06:14] VITALS: BP 136/70; PULSE 100; RESP 20; TEMP 98.3; O2SAT 95
[2016-06-06] MEDS: DOCUSATE SODIUM 100 MG CAP PO SCH ×2 (09:00→22:52)
[2016-06-06] MEDS: HALOPERIDOL 5 MG TAB PO SCH (09:00)
[2016-06-06] MEDS: MULTIVITAMIN TAB PO SCH (09:00)
[2016-06-06] MEDS: amLODIPine BESYLATE 5 MG TAB PO SCH (09:00)
[2016-06-06] MEDS: LORazepam 1 MG TAB PO PRN (11:02)
--- NOTE | 2016-06-06 11:52 | HHI.PYPN ---
Subjective Remarks Patient seen and examined. Chart reviewed. Case discussed with nurse, counselor and occupational therapist in treatment team. Per nursing staff, patient had some further episodes of screaming and behavioral disturbance in the last 24 hours and required Haldol PRN yesterday evening. Nursing staff also notes that the patient has been causing herself to vomit after medication administration. Occupational therapist reports patient is unable to tolerate groups. On my examination today, patient is complaining of flank pain, now of the left flank. She does have an abdominal U/S scheduled for this afternoon. She is otherwise currently calm and pleasant and offers no complaints. No reported side effects from medications. Review of Systems ROS Limitations: Poor Historian Except as stated in HPI: all other systems reviewed are Neg Objective Alert: Yes [place]: Person (at least) Mood: Calm Affect: Other (remains quite childlike) Memory Intact: Comment (not formally assessed) Hallucinations: Other (None) Delusions: No Delusion Type: Other (No delusions) Suicidal: Ideation (no SI) Homicidal: Ideation (no HI) Insight/Judgment Poor Remarks No abnormal motor movements noted. Patient does complain of flank pain but at other points, particularly when surreptitiously observed, does not appear to be in any acute physical distress. Grooming and hygiene fair to poor at best. Labs Test 06/05/16 15:08 Urine Color YELLOW Urine Turbidity CLEAR Urine pH 5.5 Urine Specific [place] 1.008 Urine Protein NEG mg/dL Urine Glucose (UA) NEG mg/dL Urine Ketones NEG mg/dL Urine Occult Blood NEG Urine Nitrite NEG Urine Bilirubin NEG Urine Urobilinogen LESS THAN 2.0 MG/DL Urine Leukocyte Esterase NEG Urine RBC 2 /hpf Urine WBC 2 /hpf Urine Squamous Epithelial <1 /hpf Cells Urine Bacteria RARE /hpf Microscopic Urinalysis Comment CULT NOT INDICATED Labs reviewed. Urinalysis not consistent with UTI. Vitals/IOs Vital Signs Date Time Temp Pulse Resp B/P Pulse Ox O2 Delivery O2 Flow Rate FiO2 06/06/16 06:14 98.3 100 20 136/70 95 Assessment & Plan Problem List: (1) Schizophrenia ICD Code: F20.9 Assessment & Plan Given reports of possible medication non-adherence, replace Haldol PO with scheduled Haldol 10mg BID IM. Plan for initiation of Haldol Decanoate following completion of workup for patient's somatic symptoms. Continue to monitor on the inpatient unit. Continue other medications and care as ordered. Justification for Cont. Inpt. Impairment in self-care. Impairment in social function. Complicating conditions. Medication changes. Risk for decompensation in a less restrictive environment. Discharge Planning Patient requires new placement, but patient's current behavior would likely render a search for new placement fruitless at this time. We will redouble our efforts to explore new placement once patient's behavior stabilizes. Request HC Surrog/Guard Advoc?: Yes Problem Qualifiers (1) Schizophrenia: Qualified Code: F20.1 - Disorganized schizophrenia Cam Arshad MD Jun 06, 2016 11:52
[2016-06-06] MEDS ORDERED: HALOPERIDOL DECANOATE 50 MG/ML VIAL IM SCH (14:00)
[2016-06-06] MEDS: HALOPERIDOL LACTATE 5 MG/ML AMP IM PRN (15:27)
[2016-06-06] MEDS: diphenhydrAMINE HCL 50 MG/ML VIAL IM PRN (15:27)
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
[2016-06-06 18:12] VITALS: BP 148/80; PULSE 97; RESP 19; TEMP 98.8; O2SAT 95
[2016-06-06] MEDS: HALOPERIDOL LACTATE 5 MG/ML AMP IM SCH (21:00)
[2016-06-06] MEDS ORDERED: HALOPERIDOL 10 MG TAB PO ONE (22:45)
[2016-06-06] MEDS: diphenhydrAMINE HCL 50 MG CAP PO PRN (22:52)
[2016-06-07] MEDS: LORazepam 2 MG/ML VIAL IM PRN ×2 (03:23→11:32)
[2016-06-07] MEDS: HALOPERIDOL LACTATE 5 MG/ML AMP IM PRN ×2 (03:23→14:19)
[2016-06-07 06:52] VITALS: BP 129/68; PULSE 87; RESP 17; TEMP 97.4; O2SAT 95
[2016-06-07] MEDS: DOCUSATE SODIUM 100 MG CAP PO SCH ×2 (09:00→20:53)
[2016-06-07] MEDS: amLODIPine BESYLATE 5 MG TAB PO SCH (09:00)
[2016-06-07] MEDS: HALOPERIDOL LACTATE 5 MG/ML AMP IM SCH ×2 (09:00→20:53)
[2016-06-07] MEDS: MULTIVITAMIN TAB PO SCH (09:00)
--- NOTE | 2016-06-07 11:20 | HHI.PR ---
Subjective Remarks Follow up right sided flank pain. Patient seen and examined in hallway, patient did not want to do to room. She states she still has the pain in her right side and Tylenol does not help, and it even hurts when ambulating. She denies any chest pain, sob, fever or chills. Discussed negative results of UA and abdominal US with patient. Objective Vitals Vital Signs Date Time Temp Pulse Resp B/P Pulse Ox O2 Delivery O2 Flow Rate FiO2 06/07/16 06:52 97.4 87 17 129/68 95 06/06/16 18:12 98.8 97 19 148/80 95 I/O 06/06/16 06/06/16 06/06/16 06/07/16 06/07/16 06/07/16 07:00 15:00 23:00 07:00 15:00 23:00 Intake Total 360 ml Balance 360 ml Intake Oral 360 ml Result Diagram: 06/03/16201106/03/16 0750 Imaging Last Impressions Abdomen Ultrasound 06/06/16 0000 Signed Impressions: Service Date/Time: Monday, June 06, 2016 16:19 - CONCLUSION: 1. The study is limited secondary to combativeness and body habitus. 2. Mild hepatomegaly and hepatic steatosis. Jc Gunn MD Objective Remarks GENERAL: This is a well-nourished, well-developed patient, in no apparent distress. SKIN: No rashes, ecchymoses or lesions. Cool and dry. HEAD: Atraumatic. Normocephalic. No temporal or scalp tenderness. EYES: Pupils equal round and reactive. Extraocular motions intact. No scleral icterus. ENT: Nose without bleeding, purulent drainage or septal hematoma. Airway patent. NECK: Trachea midline. No JVD or lymphadenopathy. Supple. CARDIOVASCULAR: Regular rate and rhythm without murmurs, gallops, or rubs. RESPIRATORY: Clear to auscultation. Breath sounds equal bilaterally. No wheezes , rales, or rhonchi. GASTROINTESTINAL: Abdomen soft, right side tenderness, nondistended. BS x4. No CVA tenderness. No pain with palpation. MUSCULOSKELETAL: Extremities without clubbing, cyanosis, or edema. No joint tenderness, effusion, or edema noted. No calf tenderness. NEUROLOGICAL: Awake and alert. Motor and sensory grossly within normal limits. Normal speech. Medications and IVs Current Medications Medications (Trade) Dose Ordered Sig/Twila Route Start Time Stop Time Status Last Admin (Tylenol) 650 mg Q4H PRN PO 05/29/16 16:15 06/06/16 09:18 (Milk Of Magnesia Liq) 30 ml DAILY PRN PO 05/29/16 16:15 (Mag-Al Plus Susp Liq) 30 ml Q6H PRN PO 05/29/16 16:15 (Ativan) 2 mg Q6H PRN PO 05/30/16 16:15 06/06/16 11:02 (Ativan Inj) 2 mg Q6H PRN IM 05/30/16 16:15 06/07/16 11:32 (Cogentin) 1 mg Q12HR PRN PO 05/30/16 12:45 06/06/16 22:52 (Cogentin Inj) 1 mg Q12HR PRN IM 05/30/16 12:45 06/07/16 14:19 (Haldol) 5 mg Q8H PRN PO 05/30/16 12:45 06/05/16 14:21 (Haldol Inj) 5 mg Q8H PRN IM 05/30/16 12:45 06/07/16 14:19 (Colace) 100 mg BID PO 05/30/16 21:00 06/07/16 09:00 (Norvasc) 5 mg DAILY PO 05/31/16 09:00 06/07/16 09:00 (Theragran) 1 tab DAILY PO 05/31/16 09:00 06/07/16 09:00 (Benadryl) 50 mg HS PRN PO 06/01/16 10:15 06/06/16 22:52 (Benadryl Inj) 50 mg HS PRN IM 06/01/16 10:15 06/06/16 15:27 (Haldol Inj) 10 mg BID IM 06/06/16 21:00 06/07/16 09:00 (Flexeril) 5 mg Q12HR PRN PO 06/07/16 12:00 Urinary Catheter: No Vascular Central Line Catheter: No A/P Problem List: (1) Schizophrenia ICD Code: F20.9 Status: Acute (2) Elevated WBCs ICD Code: D72.829 Status: Acute (3) Right flank pain ICD Code: R10.9 Status: Acute Assessment and Plan 57 y/o female with a history of schizophrenia was brought in originally from her care home due to severe agitation. She is now being managed in the psychiatric department for schizophrenia. According to psychiatry there was some nonadherence of medications at the care home. [facility] is following for medical management, elevated WBC and right flank pain. Schizophrenia, chronic -Managed by Psychiatry Elevated WBCs, no fevers Labs: WBCs 13.3 on 06/03, which is improved from 15.5 on 05/28/16 -UA negative -Patient refused labs, will order again for AM Right flank pain, currently getting better, maybe muscular in nature, no cva tenderness Abdominal US shows Mild hepatomegaly and hepatic steatosis. Limited due to combativeness, UA negative -Tylenol for pain prn -Add Flexeril 5mg Q12 PRN DVT prophylaxis: Encourage ambulation Written by ALOK Milan acting as scribe for Dr. Church on 06/07/16 at 11:35 All or portions of this note were transcribed by scribe Terese DICKINSON. I, Dr. Nelly Church personally performed the history, physical exam, and medical decision making; and confirmed the accuracy of the information in the transcribed note. Authenticated by Dr. Nelly Church on 06/07/16 at 11:35 Problem Qualifiers (1) Schizophrenia: Qualified Code: F20.1 - Disorganized schizophrenia Terese Velasquez Jun 07, 2016 11:20 Nelly Church MD Jun 07, 2016 17:34
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
[2016-06-07] MEDS: BENZTROPINE MESYLATE 2 MG/2 ML VIAL IM PRN (14:19)
[2016-06-07] MEDS: LORazepam 1 MG TAB PO PRN (19:52)
[2016-06-07] MEDS: CYCLOBENZAPRINE HCL 10 MG TAB PO PRN (19:52)
[2016-06-07] MEDS: diphenhydrAMINE HCL 50 MG CAP PO PRN (20:53)
[2016-06-07 21:47] VITALS: BP 146/75; PULSE 94; RESP 24; TEMP 99.1; O2SAT 92
[2016-06-08 06:12] VITALS: BP 130/62; PULSE 77; RESP 16; TEMP 98; O2SAT 96
[2016-06-08] MEDS: HALOPERIDOL LACTATE 5 MG/ML AMP IM SCH ×2 (08:11→21:00)
[2016-06-08] MEDS: DOCUSATE SODIUM 100 MG CAP PO SCH ×2 (08:11→21:18)
[2016-06-08] MEDS: MULTIVITAMIN TAB PO SCH (08:11)
[2016-06-08] MEDS: amLODIPine BESYLATE 5 MG TAB PO SCH (08:11)
[2016-06-08] MEDS: LORazepam 1 MG TAB PO PRN ×2 (08:13→15:30)
[2016-06-08 10:02] LABS: AUTOMATED NEUTROPHIL # 7.3 TH/MM3 (1.8-7.7); BASOPHIL # 0.1 TH/MM3 (0-0.2); BASOPHIL % 0.5 % (0.0-2.0); EOSINOPHIL % 0.1 % (0.0-4.0); HEMATOCRIT 35.9 % (35.0-46.0); HEMO FLAGS DIFF FINAL; LYMPH % 16.5 % (9.0-44.0); LYMPHOCYTE # 1.6 TH/MM3 (1.0-4.8); MEAN CELL VOLUME 90.7 FL (80.0-100.0); MEAN CORPUSCULAR HEMOGLOBIN 30.6 PG (27.0-34.0); MEAN CORPUSCULAR HGB CONC 33.8 % (32.0-36.0); MONO % 9.4 % (0.0-8.0); NEUT % 73.5 % (16.0-70.0); PLATELET COUNT 255 TH/MM3 (150-450); RED BLOOD COUNT 3.96 MIL/MM3 (4.00-5.30); RED CELL DISTRIBUTION WIDTH 15.5 % (11.6-17.2); WHITE BLOOD COUNT 9.9 TH/MM3 (4.0-11.0)
--- NOTE | 2016-06-08 10:38 | HHI.PYPN ---
Subjective Remarks Patient seen and case discussed with nursing staff. Patient apparently tried to hug a male peer overnight but was redirectable. For me today, patient presents as childlike but calm. She is somewhat disorganized. No reported side effects from medications. No complaints of pain or other discomfort. Review of Systems ROS Limitations: Poor Historian Except as stated in HPI: all other systems reviewed are Neg Objective Alert: Yes [place]: Person Mood: Calm Affect: Blunted (childlike) Memory Intact: Comment (Not assessed) Hallucinations: Other (none) Delusions: No Delusion Type: Other (none) Suicidal: Ideation (no SI) Homicidal: Ideation (no HI) Insight/Judgment Poor Remarks No motor abnormalities noted. Thought process somewhat disorganized. Labs Test 06/08/16 09:45 White Blood Count 9.9 TH/MM3 Red Blood Count 3.96 MIL/MM3 Hemoglobin 12.1 GM/DL Hematocrit 35.9 % Mean Corpuscular Volume 90.7 FL Mean Corpuscular Hemoglobin 30.6 PG Mean Corpuscular Hemoglobin 33.8 % Concent Red Cell Distribution Width 15.5 % Platelet Count 255 TH/MM3 Mean Platelet Volume 10.3 FL Neutrophils (%) (Auto) 73.5 % Lymphocytes (%) (Auto) 16.5 % Monocytes (%) (Auto) 9.4 % Eosinophils (%) (Auto) 0.1 % Basophils (%) (Auto) 0.5 % Neutrophils # (Auto) 7.3 TH/MM3 Lymphocytes # (Auto) 1.6 TH/MM3 Monocytes # (Auto) 0.9 TH/MM3 Eosinophils # (Auto) 0.0 TH/MM3 Basophils # (Auto) 0.1 TH/MM3 CBC Comment DIFF FINAL Differential Comment Labs reviewed. Leukocytosis resolved. Vitals/IOs Vital Signs Date Time Temp Pulse Resp B/P Pulse Ox O2 Delivery O2 Flow Rate FiO2 06/08/16 06:12 98.0 77 16 130/62 96 Assessment & Plan Problem List: (1) Schizophrenia ICD Code: F20.9 Assessment & Plan Continue short acting Haldol supplementing Haldol Decanoate. Plan to administer additional Haldol Decanoate over the weekend. Continue to monitor on the inpatient unit. Patient's case was presented to the [place] act court and the patient was retained on the inpatient psychiatric unit by the court. Justification for Cont. Inpt. Impairment in social function. High risk for decompensation in a less restrictive environment. Discharge Planning Patient will require new placement. Request HC Surrog/Guard Advoc?: Yes Problem Qualifiers (1) Schizophrenia: Qualified Code: F20.1 - Disorganized schizophrenia Cam Arshad MD Jun 08, 2016 10:38
[2016-06-08 18:43] VITALS: BP 137/60; PULSE 74; RESP 16; TEMP 97.9; O2SAT 96
[2016-06-08] MEDS: diphenhydrAMINE HCL 50 MG CAP PO PRN (21:18)
[2016-06-09] MEDS: CYCLOBENZAPRINE HCL 10 MG TAB PO PRN ×2 (01:29→18:40)
[2016-06-09] MEDS: amLODIPine BESYLATE 5 MG TAB PO SCH (08:02)
[2016-06-09] MEDS: DOCUSATE SODIUM 100 MG CAP PO SCH ×2 (08:02→21:00)
[2016-06-09] MEDS: MULTIVITAMIN TAB PO SCH (08:02)
[2016-06-09] MEDS: HALOPERIDOL LACTATE 5 MG/ML AMP IM SCH ×3 (08:03→21:00)
[2016-06-09] MEDS: LORazepam 2 MG/ML VIAL IM PRN ×2 (08:05→20:37)
--- NOTE | 2016-06-09 10:59 | HHI.PYPN ---
Subjective Remarks Patient seen and examined with counselor and nurse. Chart reviewed. Case discussed with nursing staff who reports patient slept poorly overnight and tried to grope a male tech. She was also fairly agitated yesterday afternoon, yelling out. On my examination today, patient is calm and pleasant. She remains fairly childlike. She does complain of some R flank pain, but the patient says that what she wants is a massage. She denies side effects from medications. Review of Systems Except as stated in HPI: all other systems reviewed are Neg Objective Alert: Yes [place]: Person (at least) Mood: Calm Affect: Blunted (remains childlike) Memory Intact: Comment (Not assessed) Hallucinations: Other (No AVH) Delusions: No Delusion Type: Other (No delusions) Suicidal: Ideation (no SI) Homicidal: Ideation (no HI) Insight/Judgment Poor Remarks TP somewhat disorganized. No abnormal motor movements noted. Grooming and hygiene poor. Labs Labs reviewed. Vitals/IOs Vital Signs Date Time Temp Pulse Resp B/P Pulse Ox O2 Delivery O2 Flow Rate FiO2 06/08/16 18:43 97.9 74 16 137/60 96 Assessment & Plan Problem List: (1) Schizophrenia ICD Code: F20.9 Assessment & Plan Titrate Haldol to 7.5mg IM TID to target psychosis/agitation. Administer additional Haldol Dec over the weekend. I will order an additional 200mg IM to bring the total dose to 300mg IM. Hospitalist to follow up on patient's complaints of pain. Continue to monitor on the high acuity unit. Continue other medications and care as ordered. Justification for Cont. Inpt. Impairment in self-care. Impairment in social function. Medication changes and process. Risk for decompensation in a less restrictive environment. Discharge Planning Patient will require new placement. Request HC Surrog/Guard Advoc?: Yes Problem Qualifiers (1) Schizophrenia: Qualified Code: F20.1 - Disorganized schizophrenia Cam Arshad MD Jun 09, 2016 10:59
--- NOTE | 2016-06-09 12:49 | HHI.PR ---
Subjective Remarks Follow up right flank pain. Patient seen and examined in [facility]. She states the Flexeril has been helping her pain. She currently denies any flank pain. No chest pain, sob, fever or chills. Objective Vitals Vital Signs Date Time Temp Pulse Resp B/P Pulse Ox O2 Delivery O2 Flow Rate FiO2 06/08/16 18:43 97.9 74 16 137/60 96 Result Diagram: 06/08/16 0945 Imaging Last Impressions Abdomen Ultrasound 06/06/16 0000 Signed Impressions: Service Date/Time: Monday, June 06, 2016 16:19 - CONCLUSION: 1. The study is limited secondary to combativeness and body habitus. 2. Mild hepatomegaly and hepatic steatosis. Jc Gunn MD Objective Remarks GENERAL: This is a well-nourished, well-developed patient, in no apparent distress. SKIN: No rashes, ecchymoses or lesions. Cool and dry. HEAD: Atraumatic. Normocephalic. No temporal or scalp tenderness. EYES: Pupils equal round and reactive. Extraocular motions intact. No scleral icterus. ENT: Nose without bleeding, purulent drainage or septal hematoma. Airway patent. NECK: Trachea midline. No JVD or lymphadenopathy. Supple. CARDIOVASCULAR: Regular rate and rhythm without murmurs, gallops, or rubs. RESPIRATORY: Clear to auscultation. Breath sounds equal bilaterally. No wheezes , rales, or rhonchi. GASTROINTESTINAL: Abdomen soft, right side tenderness, nondistended. BS x4. No CVA tenderness. No pain with palpation. MUSCULOSKELETAL: Extremities without clubbing, cyanosis, or edema. No joint tenderness, effusion, or edema noted. No calf tenderness. NEUROLOGICAL: Awake and alert. Motor and sensory grossly within normal limits. Normal speech. Medications and IVs Current Medications Medications (Trade) Dose Ordered Sig/Twila Route Start Time Stop Time Status Last Admin (Tylenol) 650 mg Q4H PRN PO 05/29/16 16:15 06/06/16 09:18 (Milk Of Magnesia Liq) 30 ml DAILY PRN PO 05/29/16 16:15 (Mag-Al Plus Susp Liq) 30 ml Q6H PRN PO 05/29/16 16:15 (Ativan) 2 mg Q6H PRN PO 05/30/16 16:15 06/08/16 15:30 (Ativan Inj) 2 mg Q6H PRN IM 05/30/16 16:15 06/09/16 08:05 (Cogentin) 1 mg Q12HR PRN PO 05/30/16 12:45 06/06/16 22:52 (Cogentin Inj) 1 mg Q12HR PRN IM 05/30/16 12:45 06/07/16 14:19 (Haldol) 5 mg Q8H PRN PO 05/30/16 12:45 06/05/16 14:21 (Haldol Inj) 5 mg Q8H PRN IM 05/30/16 12:45 06/07/16 14:19 (Colace) 100 mg BID PO 05/30/16 21:00 06/09/16 08:02 (Norvasc) 5 mg DAILY PO 05/31/16 09:00 06/09/16 08:02 (Theragran) 1 tab DAILY PO 05/31/16 09:00 06/09/16 08:02 (Benadryl) 50 mg HS PRN PO 06/01/16 10:15 06/08/16 21:18 (Benadryl Inj) 50 mg HS PRN IM 06/01/16 10:15 06/06/16 15:27 (Haldol Inj) 10 mg BID IM 06/06/16 21:00 06/09/16 13:00 06/09/16 08:03 (Flexeril) 5 mg Q12HR PRN PO 06/07/16 12:00 06/09/16 01:29 (Haldol Inj) 7.5 mg DAILY@,, IM 06/09/16 13:00 06/09/16 12:25 (Haldol Decanoate Inj) 200 mg ONCE IM 06/11/16 09:00 06/11/16 23:59 Urinary Catheter: No Vascular Central Line Catheter: No A/P Problem List: (1) Schizophrenia ICD Code: F20.9 Status: Acute (2) Elevated WBCs ICD Code: D72.829 Status: Acute (3) Right flank pain ICD Code: R10.9 Status: Acute Assessment and Plan 57 y/o female with a history of schizophrenia was brought in originally from her alf due to severe agitation. She is now being managed in the psychiatric department for schizophrenia. According to psychiatry there was some nonadherence of medications at the alf. [facility] is following for medical management, elevated WBC and right flank pain. Schizophrenia, chronic -Managed by Psychiatry Elevated WBCs, no fevers, improved Labs: WBCs 13.3 on 06/03, which is improved from 15.5 on 05/28/16, 9.9 currently -UA negative Right flank pain, currently getting better, maybe muscular in nature, no cva tenderness Abdominal US shows Mild hepatomegaly and hepatic steatosis. Limited due to combativeness, UA negative -Tylenol for pain prn -Cont Flexeril 5mg Q12 PRN DVT prophylaxis: Encourage ambulation We will sign off for now, please reconsult if needed. Discussed with nursing staff, patient and Dr. Woodson Problem Qualifiers (1) Schizophrenia: Qualified Code: F20.1 - Disorganized schizophrenia Terese Velasquez Jun 09, 2016 12:49
[2016-06-09] MEDS: ACETAMINOPHEN 325 MG TAB PO PRN (15:00)
[2016-06-09 18:04] VITALS: BP 151/78; PULSE 77; RESP 18; TEMP 98.3; O2SAT 95
[2016-06-10 05:39] VITALS: BP 151/67; PULSE 88; RESP 16; TEMP 97.6; O2SAT 96
[2016-06-10 06:14] VITALS: BP 151/67; PULSE 88; RESP 16; TEMP 97.6; O2SAT 96
[2016-06-10] MEDS: DOCUSATE SODIUM 100 MG CAP PO SCH ×2 (08:04→21:43)
[2016-06-10] MEDS: MULTIVITAMIN TAB PO SCH (08:04)
[2016-06-10] MEDS: amLODIPine BESYLATE 5 MG TAB PO SCH (08:04)
[2016-06-10] MEDS: LORazepam 2 MG/ML VIAL IM PRN (08:47)
[2016-06-10] MEDS: HALOPERIDOL LACTATE 5 MG/ML AMP IM SCH ×3 (08:47→21:44)
[2016-06-10] MEDS: BENZTROPINE MESYLATE 2 MG/2 ML VIAL IM PRN (08:47)
[2016-06-10 20:21] VITALS: BP 134/58; PULSE 82; RESP 16; TEMP 97.8; O2SAT 97
[2016-06-10] MEDS: diphenhydrAMINE HCL 50 MG CAP PO PRN (21:43)
[2016-06-10] MEDS: CYCLOBENZAPRINE HCL 10 MG TAB PO PRN (21:43)
--- NOTE | 2016-06-10 21:51 | HHI.PYPN ---
Subjective Remarks Pt seen and discussed with staff. Pt reports that there are "disturbances in the night" which are impeding selep. She was agitated this morning but calmed after medications. She denies SI/HI. Objective Alert: Yes [place]: Person (at least) Mood: Calm Affect: Blunted (remains childlike) Memory Intact: Comment (Not assessed) Hallucinations: Auditory, Other (appears internally stimulated) Delusions: No Delusion Type: Other (No delusions) Suicidal: Ideation (no SI) Homicidal: Ideation (no HI) Insight/Judgment poor Vitals/IOs Vital Signs Date Time Temp Pulse Resp B/P Pulse Ox O2 Delivery O2 Flow Rate FiO2 06/10/16 20:21 97.8 82 16 134/58 97 Assessment & Plan Problem List: (1) Schizophrenia ICD Code: F20.9 Assessment & Plan Continue current tx plan. Estimated LOS: days Justification for Cont. Inpt. risk of decompensation Request HC Surrog/Guard Advoc?: Yes Problem Qualifiers (1) Schizophrenia: Qualified Code: F20.1 - Disorganized schizophrenia Leilani Fung MD Jun 10, 2016 21:51
[2016-06-11] MEDS: ACETAMINOPHEN 325 MG TAB PO PRN ×2 (00:18→22:18)
[2016-06-11] MEDS: LORazepam 1 MG TAB PO PRN (01:07)
[2016-06-11 06:26] VITALS: BP 131/61; PULSE 85; RESP 17; TEMP 97.6; O2SAT 94
[2016-06-11] MEDS: DOCUSATE SODIUM 100 MG CAP PO SCH ×2 (08:05→20:33)
[2016-06-11] MEDS: MULTIVITAMIN TAB PO SCH (08:05)
[2016-06-11] MEDS: CYCLOBENZAPRINE HCL 10 MG TAB PO PRN (08:05)
[2016-06-11] MEDS: amLODIPine BESYLATE 5 MG TAB PO SCH (08:05)
[2016-06-11] MEDS: HALOPERIDOL LACTATE 5 MG/ML AMP IM SCH ×3 (09:00→20:21)
[2016-06-11] MEDS ORDERED: HALOPERIDOL DECANOATE 50 MG/ML VIAL IM SCH (09:00)
[2016-06-11] MEDS: BENZTROPINE MESYLATE 2 MG/2 ML VIAL IM PRN (09:07)
--- NOTE | 2016-06-11 13:40 | HHI.PYPN ---
Subjective Remarks Pt seen and discussed with staff. Pt slept only a few hours last night. She slept this morning after breakfast and medications. She is less intrusive and more compliant with redirection today. No medication side effects. No SI/HI Objective Alert: Yes [place]: Person, Place, Date ("sunday") Mood: Calm Affect: Flat Memory Intact: Comment (Not assessed) Hallucinations: Auditory, Other (appears less internally stimulated) Delusions: No Delusion Type: Other (No delusions) Suicidal: Ideation (no SI) Homicidal: Ideation (no HI) Insight/Judgment poor Vitals/IOs Vital Signs Date Time Temp Pulse Resp B/P Pulse Ox O2 Delivery O2 Flow Rate FiO2 06/11/16 06:26 97.6 85 17 131/61 94 Assessment & Plan Problem List: (1) Schizophrenia ICD Code: F20.9 Assessment & Plan Continue current tx plan. Estimated LOS: days Justification for Cont. Inpt. impairments in reality construction Request HC Surrog/Guard Advoc?: Yes Problem Qualifiers (1) Schizophrenia: Qualified Code: F20.1 - Disorganized schizophrenia Leilani Fung MD Jun 11, 2016 13:40
[2016-06-11 15:39] VITALS: BP 119/55; PULSE 75; RESP 18; TEMP 97.1; O2SAT 98
[2016-06-11] MEDS ORDERED: PADIMATE (CHAPSTICK) 4.5 GM TUBE TOPICAL PRN (16:00)
[2016-06-11] MEDS: LORazepam 2 MG/ML VIAL IM PRN (20:26)
[2016-06-12] MEDS: CYCLOBENZAPRINE HCL 10 MG TAB PO PRN (02:55)
[2016-06-12] MEDS: ACETAMINOPHEN 325 MG TAB PO PRN (02:56)
[2016-06-12 05:41] VITALS: BP 113/56; PULSE 76; RESP 18; TEMP 97.6; O2SAT 96
[2016-06-12] MEDS: DOCUSATE SODIUM 100 MG CAP PO SCH ×2 (09:20→20:25)
[2016-06-12] MEDS: MULTIVITAMIN TAB PO SCH (09:20)
[2016-06-12] MEDS: amLODIPine BESYLATE 5 MG TAB PO SCH (09:20)
[2016-06-12] MEDS: HALOPERIDOL LACTATE 5 MG/ML AMP IM SCH ×3 (09:20→20:44)
--- NOTE | 2016-06-12 10:04 | HHI.PYPN ---
Subjective Remarks Patient seen and examined with counselor. Chart reviewed. Case discussed with nursing staff who reports patient has been no significant behavioral problem overnight. On my examination today, patient is calm and pleasant. Thoughts remain a little disorganized. No SI or HI voiced. No evident side effects from medications. Review of Systems ROS Limitations: Psychotic, Poor Historian Other No reported physical complaints Objective Alert: Yes [place]: Person (at least) Mood: Calm Affect: Blunted (somewhat childlike) Memory Intact: Comment (Not assessed) Hallucinations: Other (no AVH reported) Delusions: No Delusion Type: Other (no delusions elicited) Suicidal: Ideation (no SI) Homicidal: Ideation (no HI) Insight/Judgment Poor Remarks No motor abnormalities noted. Steady gait and station. Thought process remains somewhat disorganized. Labs Labs reviewed. Vitals/IOs Vital Signs Date Time Temp Pulse Resp B/P Pulse Ox O2 Delivery O2 Flow Rate FiO2 06/12/16 05:41 97.6 76 18 113/56 96 Assessment & Plan Problem List: (1) Schizophrenia ICD Code: F20.9 Assessment & Plan Patient appears to be tolerating Haldol and Haldol Decanoate well. She has received a total of 300 mg Haldol Decanoate. Continue supplementation with IM short acting Haldol as the patient does not reliably take oral medications. Continue to monitor on the inpatient psychiatric unit. Continue other medications and care as ordered. Justification for Cont. Inpt. Some impairments in reality construction. High risk for decompensation in a less restrictive environment Discharge Planning Placement Request HC Surrog/Guard Advoc?: Yes Problem Qualifiers (1) Schizophrenia: Qualified Code: F20.1 - Disorganized schizophrenia Cam Arshad MD Jun 12, 2016 10:04
[2016-06-12 16:39] VITALS: BP 138/63; PULSE 82; RESP 18; TEMP 98.1
[2016-06-12 17:27] VITALS: BP 138/63; PULSE 82; RESP 18; TEMP 98.1
[2016-06-12] MEDS: diphenhydrAMINE HCL 50 MG CAP PO PRN (20:54)
[2016-06-13] MEDS: HALOPERIDOL LACTATE 5 MG/ML AMP IM PRN (00:30)
[2016-06-13] MEDS: diphenhydrAMINE HCL 50 MG/ML VIAL IM PRN (00:30)
[2016-06-13] MEDS: LORazepam 2 MG/ML VIAL IM PRN ×2 (00:30→08:04)
[2016-06-13] MEDS: HALOPERIDOL LACTATE 5 MG/ML AMP IM SCH ×3 (08:04→20:51)
[2016-06-13] MEDS: DOCUSATE SODIUM 100 MG CAP PO SCH ×2 (08:05→20:51)
[2016-06-13] MEDS: amLODIPine BESYLATE 5 MG TAB PO SCH (08:05)
[2016-06-13] MEDS: MULTIVITAMIN TAB PO SCH (08:05)
--- NOTE | 2016-06-13 12:44 | HHI.PYPN ---
Subjective Remarks Patient seen and examined with nurse. Chart reviewed. Case discussed in treatment team with nurse, counselor. Per nursing staff, patient had an episode of cursing this morning and was given Ativan to good effect. On my examination today, the patient is calm and pleasant. Her thoughts seem somewhat more organized compared to previous days. I offer her a scheduled benzodiazepine but she says that she will take it because she doesn't think that she needs medications. No evidence side effects from medications. Review of Systems ROS Limitations: Poor Historian Except as stated in HPI: all other systems reviewed are Neg Objective Alert: Yes [place]: Person Mood: Calm Affect: Blunted (remains childlike) Memory Intact: Comment (Not assessed) Hallucinations: Other (none) Delusions: No Delusion Type: Other (no josue delusions) Suicidal: Ideation (no SI) Homicidal: Ideation (no HI) Insight/Judgment Poor Remarks No motoric abnormalities noted. Thought process remains disorganized but is perhaps somewhat less so today than yesterday. Labs Labs reviewed. Vitals/IOs Vital Signs Date Time Temp Pulse Resp B/P Pulse Ox O2 Delivery O2 Flow Rate FiO2 06/12/16 17:27 98.1 82 18 138/63 06/12/16 05:41 96 Assessment & Plan Problem List: (1) Schizophrenia ICD Code: F20.9 Assessment & Plan Titrate short acting Haldol to 10 mg 3 times a day. This is supplementing Haldol Decanoate. Plan to administer additional Haldol Decanoate later this week as detailed previously. Continue to monitor on the inpatient psychiatric unit. Continue other medications and care as ordered. Justification for Cont. Inpt. Impairment in social functioning. Medication changes in process. High risk for decompensation in a less restrictive environment. Discharge Planning Patient will require new placement. We will need to wait until she has several days of good behavioral control to initiate referrals. Request HC Surrog/Guard Advoc?: Yes Problem Qualifiers (1) Schizophrenia: Qualified Code: F20.1 - Disorganized schizophrenia Cam Arshad MD Jun 13, 2016 12:44
[2016-06-13 18:06] VITALS: BP 117/57; PULSE 76; RESP 18; TEMP 97.4; O2SAT 97
[2016-06-13] MEDS: diphenhydrAMINE HCL 50 MG CAP PO PRN (20:51)
[2016-06-13] MEDS: ACETAMINOPHEN 325 MG TAB PO PRN (22:27)
[2016-06-14 06:06] VITALS: BP 125/60; PULSE 68; RESP 18; TEMP 97.6; O2SAT 97
[2016-06-14] MEDS: amLODIPine BESYLATE 5 MG TAB PO SCH (08:57)
[2016-06-14] MEDS: HALOPERIDOL LACTATE 5 MG/ML AMP IM SCH ×3 (08:57→20:25)
[2016-06-14] MEDS: MULTIVITAMIN TAB PO SCH (08:57)
[2016-06-14] MEDS: DOCUSATE SODIUM 100 MG CAP PO SCH ×2 (08:57→20:24)
--- NOTE | 2016-06-14 11:14 | HHI.PYPN ---
Subjective Remarks Patient seen and examined with counselor. Chart reviewed. Patient has not required any additional Haldol PRN in the last 24 hours. Case discussed with nursing staff who reports patient has not been showering but otherwise has been no behavioral problem. On my examination today, the patient presents as calm, pleasant and childlike. She is sitting in the day area leafing absentmindedly through a grocery store circular. She denies any audiovisual hallucinations. No SI or HI. Denies side effects from medications. Review of Systems ROS Limitations: Poor Historian Except as stated in HPI: all other systems reviewed are Neg Objective Alert: Yes [place]: Person Mood: Calm Affect: Other (childlike) Memory Intact: Comment (Not assessed) Hallucinations: Other (denies AVH) Delusions: No Delusion Type: Other (no delusions) Suicidal: Ideation (no SI) Homicidal: Ideation (no HI) Insight/Judgment Poor Remarks No abnormal motor movements noted. Labs Labs reviewed. No new labs. Vitals/IOs Vital Signs Date Time Temp Pulse Resp B/P Pulse Ox O2 Delivery O2 Flow Rate FiO2 06/14/16 06:06 97.6 68 18 125/60 97 Intake and Output 06/13/16 06/13/16 06/14/16 08:00 16:00 00:00 Intake Total 720 ml Balance 720 ml Assessment & Plan Problem List: (1) Schizophrenia ICD Code: F20.9 Assessment & Plan Continue short acting Haldol supplementing long-acting Haldol Decanoate. Continue to monitor on the inpatient unit. Continue other medications and care as ordered. Justification for Cont. Inpt. Impairment in self-care. High likelihood of medication nonadherence leading to decompensation and readmission (giving IM short acting Haldol because patient was causing emesis to avoid taking PO Haldol). High risk for decompensation in a less restrictive environment. Discharge Planning Patient requires placement. Case discussed with counselor. Request HC Surrog/Guard Advoc?: Yes Problem Qualifiers (1) Schizophrenia: Qualified Code: F20.1 - Disorganized schizophrenia Cam Arshad MD Jun 14, 2016 11:14
[2016-06-14 16:59] VITALS: BP 135/67; PULSE 81; RESP 18; TEMP 97.8; O2SAT 96
[2016-06-14] MEDS: CYCLOBENZAPRINE HCL 10 MG TAB PO PRN (22:34)
[2016-06-14] MEDS: ACETAMINOPHEN 325 MG TAB PO PRN (22:35)
[2016-06-14] MEDS: HALOPERIDOL LACTATE 5 MG/ML AMP IM PRN ×2 (23:35→23:37)
[2016-06-14] MEDS: LORazepam 2 MG/ML VIAL IM PRN ×2 (23:36→23:37)
[2016-06-14] MEDS: diphenhydrAMINE HCL 50 MG/ML VIAL IM PRN ×2 (23:36→23:37)
[2016-06-15 06:06] VITALS: BP 143/74; PULSE 91; RESP 18; TEMP 98; O2SAT 96
[2016-06-15] MEDS: DOCUSATE SODIUM 100 MG CAP PO SCH ×2 (08:35→21:30)
[2016-06-15] MEDS: amLODIPine BESYLATE 5 MG TAB PO SCH (08:35)
[2016-06-15] MEDS: MULTIVITAMIN TAB PO SCH (08:36)
[2016-06-15] MEDS: HALOPERIDOL LACTATE 5 MG/ML AMP IM SCH ×3 (08:36→21:31)
--- NOTE | 2016-06-15 10:37 | HHI.PYPN ---
Subjective Remarks Patient seen and examined with counselor. Chart reviewed. Case discussed with nursing staff who reports that the patient was somewhat agitated overnight and received Haldol PRN. She was also reportedly complaining of some hip pain overnight. On my examination today, the patient is calm and pleasant. She is sitting in the recreation area. Her insight into her mental illness remains poor and she does not think that she needs psychotropic medications. No SI or HI voiced. No side effects from medications. Patient has no complaints of pain for me and in particular denies any hip pain. I received a call from the patient's nurse in the afternoon that the patient was growing increasingly agitated and screaming. I have ordered her medicated with Zyprexa IM ETO to good effect. Review of Systems ROS Limitations: Poor Historian Except as stated in HPI: all other systems reviewed are Neg Objective Alert: Yes [place]: Person Mood: Calm Affect: Blunted (remains childlike) Memory Intact: Comment (Not assessed) Hallucinations: Other (no AVH) Delusions: No Delusion Type: Other (no delusions) Suicidal: Ideation (no SI) Homicidal: Ideation (no HI) Insight/Judgment Poor Remarks No motor abnormalities noted. No signs physical distress. Labs Labs reviewed. No new labs. Vitals/IOs Vital Signs Date Time Temp Pulse Resp B/P Pulse Ox O2 Delivery O2 Flow Rate FiO2 06/15/16 06:06 98.0 91 18 143/74 96 Intake and Output 06/14/16 06/14/16 06/15/16 08:00 16:00 00:00 Intake Total 360 ml Balance 360 ml Assessment & Plan Problem List: (1) Schizophrenia ICD Code: F20.9 Assessment & Plan Patient is already on a robust dose of Haldol (30mg short-acting supplementing 300mg Haldol Dec), and I do not suspect that she would derive additional benefit from more Haldol. In light of ongoing issues with agitation, I will add a nighttime dose of Zyprexa Zydis. Continue to monitor in the high acuity inpatient unit. Continue other medications and care as ordered. Justification for Cont. Inpt. Impairment in social functioning. Impairment in reality construction. Medication changes in process. High risk for decompensation in a less restrictive environment. Discharge Planning Placement once psychiatrically stabilized. Request HC Surrog/Guard Advoc?: Yes Problem Qualifiers (1) Schizophrenia: Qualified Code: F20.1 - Disorganized schizophrenia Cam Arshad MD Jun 15, 2016 10:37
[2016-06-15] MEDS: LORazepam 2 MG/ML VIAL IM PRN (13:58)
[2016-06-15] MEDS ORDERED: OLANZapine IM 10 MG VIAL IM STA (15:16)
[2016-06-15 18:24] VITALS: BP 135/63; PULSE 86; RESP 20; TEMP 98.4; O2SAT 96
[2016-06-15] MEDS: OLANZapine ODT 5 MG TAB PO SCH (21:30)
[2016-06-16 06:34] VITALS: BP 156/69; PULSE 79; RESP 18; TEMP 97.9; O2SAT 98
[2016-06-16] MEDS: HALOPERIDOL LACTATE 5 MG/ML AMP IM SCH ×3 (08:45→21:02)
[2016-06-16] MEDS: DOCUSATE SODIUM 100 MG CAP PO SCH ×2 (08:45→21:03)
[2016-06-16] MEDS: MULTIVITAMIN TAB PO SCH (08:45)
[2016-06-16] MEDS: amLODIPine BESYLATE 5 MG TAB PO SCH (08:45)
[2016-06-16 17:43] VITALS: BP 156/71; PULSE 89; RESP 18; TEMP 98.3; O2SAT 97
[2016-06-16] MEDS: OLANZapine ODT 5 MG TAB PO SCH (21:03)
[2016-06-16 21:32] VITALS: BP 156/71; PULSE 89; RESP 18; TEMP 98.3; O2SAT 97
[2016-06-17] MEDS: HALOPERIDOL LACTATE 5 MG/ML AMP IM SCH ×3 (08:40→21:51)
[2016-06-17] MEDS: MULTIVITAMIN TAB PO SCH (08:40)
[2016-06-17] MEDS: amLODIPine BESYLATE 5 MG TAB PO SCH (08:40)
[2016-06-17] MEDS: DOCUSATE SODIUM 100 MG CAP PO SCH ×2 (08:40→21:54)
--- NOTE | 2016-06-17 16:05 | HHI.PYPN ---
Subjective Remarks Patient was seen and case discussed with nursing. Patient is apathetic and minimally cooperative during the interview. Largely seclusive to self. Per nursing she has been disorganized and stripping naked throughout the day. Compliant with her medications. Denies suicidal ideation intent or plan Objective Alert: Yes [place]: Person Mood: Calm Affect: Flat Memory Intact: Comment (Not assessed) Hallucinations: Other (no AVH) Delusions: No Delusion Type: Other (no delusions) Suicidal: Ideation (no SI) Homicidal: Ideation (no HI) Insight/Judgment Poor Vitals/IOs Vital Signs Date Time Temp Pulse Resp B/P Pulse Ox O2 Delivery O2 Flow Rate FiO2 06/16/16 21:32 98.3 89 18 156/71 97 Intake and Output 06/16/16 06/16/16 06/17/16 08:00 16:00 00:00 Intake Total 720 ml Balance 720 ml Assessment & Plan Problem List: (1) Schizophrenia ICD Code: F20.9 Assessment & Plan Continue current treatment plan Justification for Cont. Inpt. Patient will decompensate in a less restrictive setting Request HC Surrog/Guard Advoc?: Yes Problem Qualifiers (1) Schizophrenia: Qualified Code: F20.1 - Disorganized schizophrenia Carlos Larry DO Jun 17, 2016 16:05
[2016-06-17 18:10] VITALS: BP 152/73; PULSE 100; RESP 16; TEMP 97.1; O2SAT 95
[2016-06-17] MEDS: OLANZapine ODT 5 MG TAB PO SCH (21:55)
[2016-06-18 05:55] VITALS: BP 135/60; PULSE 81; RESP 18; TEMP 97.5; O2SAT 97
[2016-06-18] MEDS: DOCUSATE SODIUM 100 MG CAP PO SCH ×3 (09:00→20:44)
[2016-06-18] MEDS: amLODIPine BESYLATE 5 MG TAB PO SCH ×2 (09:00→09:18)
[2016-06-18] MEDS: MULTIVITAMIN TAB PO SCH ×2 (09:00→09:18)
[2016-06-18] MEDS: HALOPERIDOL LACTATE 5 MG/ML AMP IM SCH ×3 (09:19→20:45)
[2016-06-18] MEDS: CYCLOBENZAPRINE HCL 10 MG TAB PO PRN (12:48)
--- NOTE | 2016-06-18 14:59 | HHI.PYPN ---
Subjective Remarks Patient was seen and case discussed with nursing. Patient is been behaving well. His compliant with her medications. Per nursing she is elevated in the morning but improves once she gets her Haldol. Objective Alert: Yes [place]: Person Mood: Calm Affect: Restricted Memory Intact: Comment (Not assessed) Hallucinations: Other (no AVH) Delusions: No Delusion Type: Other (no delusions) Suicidal: Ideation (no SI) Homicidal: Ideation (no HI) Insight/Judgment Poor Vitals/IOs Vital Signs Date Time Temp Pulse Resp B/P Pulse Ox O2 Delivery O2 Flow Rate FiO2 06/18/16 05:55 97.5 81 18 135/60 97 Assessment & Plan Problem List: (1) Schizophrenia ICD Code: F20.9 Assessment & Plan Continue current treatment plan Justification for Cont. Inpt. Patient will decompensate in a less restrictive setting Request HC Surrog/Guard Advoc?: Yes Problem Qualifiers (1) Schizophrenia: Qualified Code: F20.1 - Disorganized schizophrenia Carlos Larry DO Jun 18, 2016 14:59
[2016-06-18 15:21] VITALS: BP 149/62; PULSE 95; RESP 18; TEMP 97.8; O2SAT 96
[2016-06-18] MEDS: OLANZapine ODT 5 MG TAB PO SCH (20:44)
[2016-06-19] MEDS: LORazepam 1 MG TAB PO PRN (01:27)
[2016-06-19 06:13] VITALS: BP 112/67; PULSE 95; RESP 15; TEMP 98.4; O2SAT 97
[2016-06-19] MEDS: HALOPERIDOL LACTATE 5 MG/ML AMP IM SCH (09:00)
[2016-06-19] MEDS: MULTIVITAMIN TAB PO SCH (09:00)
[2016-06-19] MEDS: amLODIPine BESYLATE 5 MG TAB PO SCH (09:00)
[2016-06-19] MEDS: DOCUSATE SODIUM 100 MG CAP PO SCH ×2 (09:00→21:00)
--- NOTE | 2016-06-19 10:17 | HHI.PYPN ---
Subjective Remarks Patient seen and examined with counselor and nurse. Chart reviewed. Case discussed with nursing staff who reports patient slept poorly overnight. Nursing staff wonders if we could try the patient with oral Haldol to supplement her Haldol Decanoate. On my examination today, the patient complains of poor sleep overnight. She denies any SI, HI or AVH. Insight is poor. Denies any side effects from medications. No physical complaints. Review of Systems ROS Limitations: Poor Historian Except as stated in HPI: all other systems reviewed are Neg Objective Alert: Yes [place]: Person Mood: Calm Affect: Blunted (childlike) Memory Intact: Comment (not formally assessed) Hallucinations: Other (no AVH) Delusions: No Delusion Type: Other (no delusional material) Suicidal: Ideation (no SI) Homicidal: Ideation (no HI) Insight/Judgment Poor Remarks Thought process somewhat disorganized. Speech a little bit rambling. Labs Labs reviewed. Vitals/IOs Vital Signs Date Time Temp Pulse Resp B/P Pulse Ox O2 Delivery O2 Flow Rate FiO2 06/19/16 06:13 98.4 95 15 112/67 97 Intake and Output 06/18/16 06/18/16 06/19/16 08:00 16:00 00:00 Intake Total 360 ml Balance 360 ml Assessment & Plan Problem List: (1) Schizophrenia ICD Code: F20.9 Assessment & Plan Titrate Zyprexa to 10 mg at bedtime. Replace IM Haldol with Haldol liquid 10 mg 3 times daily supplementing Haldol Decanoate. Continue to monitor on the high acuity unit. Continue other medications and care as ordered. Justification for Cont. Inpt. Medication changes in process. High risk for decompensation in a less restrictive environment. Discharge Planning Counselor working on placement options. Request HC Surrog/Guard Advoc?: Yes Problem Qualifiers (1) Schizophrenia: Qualified Code: F20.1 - Disorganized schizophrenia Cam Arshad MD Jun 19, 2016 10:17
[2016-06-19] MEDS: HALOPERIDOL LACTATE ORAL CONC 10 MG/5 ML CUP PO SCH ×2 (13:00→18:30)
[2016-06-19 18:15] VITALS: BP 128/59; PULSE 96; RESP 18; TEMP 98.2; O2SAT 96
[2016-06-19 21:00] VITALS: BP 128/59; PULSE 96; RESP 18; TEMP 98.2; O2SAT 96
[2016-06-19] MEDS ORDERED: OLANZapine ODT 10 MG TAB PO SCH (21:00)
[2016-06-20] MEDS: diphenhydrAMINE HCL 50 MG CAP PO PRN ×2 (02:37→03:31)
[2016-06-20 06:00] VITALS: BP 136/60; PULSE 78; RESP 18; TEMP 98.4; O2SAT 94
[2016-06-20] MEDS: amLODIPine BESYLATE 5 MG TAB PO SCH (08:33)
[2016-06-20] MEDS: DOCUSATE SODIUM 100 MG CAP PO SCH ×2 (08:33→20:22)
[2016-06-20] MEDS: HALOPERIDOL LACTATE ORAL CONC 10 MG/5 ML CUP PO SCH ×4 (08:33→17:12)
[2016-06-20] MEDS: MULTIVITAMIN TAB PO SCH (08:33)
--- NOTE | 2016-06-20 11:16 | HHI.PYPN ---
Subjective Remarks Patient seen and examined with counselor and nurse. Chart reviewed. Case discussed with nursing staff, counselor and occupational therapist in treatment team. Per nursing staff, the patient had been no behavioral problem but was sleeping poorly. Occupational therapist notes that the patient is coming out for groups but is unable to tolerate the full group typically. On my examination today, the patient is calm and pleasant. I do notice small amount of vomitus on the floor of her room and ask her about that, and she admits that she did throw up but insists that it was before she was given her Haldol liquid. No psychotic symptoms. No evident side effects from medications. Following my departure from the unit, I received a call from the nursing staff that the patient was growing agitated and yelling out, and I have ordered her medicated with Zyprexa 10 mg IM once ETO. Review of Systems ROS Limitations: Poor Historian Except as stated in HPI: all other systems reviewed are Neg Objective Alert: Yes [place]: Person, Place Mood: Calm Affect: Other (childlike) Memory Intact: Comment (not formally assessed) Hallucinations: Other (no AVH) Delusions: No Delusion Type: Other (no delusions) Suicidal: Ideation (no suicidal ideation) Homicidal: Ideation (no HI) Insight/Judgment Poor Remarks No abnormal motor movements noted. Grooming and hygiene fair to poor at best. Labs Labs reviewed. Vitals/IOs Vital Signs Date Time Temp Pulse Resp B/P Pulse Ox O2 Delivery O2 Flow Rate FiO2 06/20/16 06:00 98.4 78 18 136/60 94 Intake and Output 06/19/16 06/19/16 06/20/16 08:00 16:00 00:00 Intake Total 360 ml Balance 360 ml Assessment & Plan Problem List: (1) Schizophrenia ICD Code: F20.9 Assessment & Plan Titrate Zyprexa to 15 mg at bedtime to help with sleep. I am concerned that the patient is once again inducing vomiting in order not to comply with her psychotropics. I will give the liquid Haldol another day, but if the patient continues to have outbursts, we may need to switch back to IM. Continue to monitor on the high acuity unit. Continue other medications and care as ordered. Justification for Cont. Inpt. High risk for decompensation in a less restrictive environment. Medication changes in process. Discharge Planning Patient requires new placement. Counselor informs me that they have sent out 6 referrals to new facilities and are awaiting word back. 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
[2016-06-20] MEDS ORDERED: OLANZapine IM 10 MG VIAL IM STA (11:22)
[2016-06-20] MEDS: LORazepam 2 MG/ML VIAL IM PRN ×2 (12:39→16:39)
[2016-06-20] MEDS: HALOPERIDOL LACTATE 5 MG/ML AMP IM PRN (14:11)
[2016-06-20] MEDS ORDERED: OLANZapine ODT 15 MG TAB PO SCH (21:00)
[2016-06-21 05:55] VITALS: BP 114/56; PULSE 92; RESP 19; TEMP 96.1; O2SAT 95
[2016-06-21] MEDS: CYCLOBENZAPRINE HCL 10 MG TAB PO PRN (08:50)
[2016-06-21] MEDS: MULTIVITAMIN TAB PO SCH (08:51)
[2016-06-21] MEDS: amLODIPine BESYLATE 5 MG TAB PO SCH (08:51)
[2016-06-21] MEDS: DOCUSATE SODIUM 100 MG CAP PO SCH ×2 (08:51→20:38)
[2016-06-21] MEDS: HALOPERIDOL LACTATE ORAL CONC 10 MG/5 ML CUP PO SCH ×3 (08:53→18:28)
--- NOTE | 2016-06-21 12:05 | HHI.PYPN ---
Subjective Remarks Patient seen and examined with counselor and nurse. Chart reviewed. I note the patient was somewhat paranoid overnight. Case discussed with nursing staff. On my examination today, the patient is fairly calm and pleasant. She does not verbalize any paranoid material. No SI or HI. Denies side effects from medications. Review of Systems ROS Limitations: Poor Historian Except as stated in HPI: all other systems reviewed are Neg Objective Alert: Yes [place]: Person, Place Mood: Calm Affect: Other (remains childlike) Memory Intact: Comment (not formally assessed) Hallucinations: Other (no AVH) Delusions: No Delusion Type: Other (no delusions at this time) Suicidal: Ideation (no SI) Homicidal: Ideation (no HI) Insight/Judgment Poor Remarks No abnormal motor movements noted. Grooming and hygiene poor. Labs Labs reviewed. Vitals/IOs Vital Signs Date Time Temp Pulse Resp B/P Pulse Ox O2 Delivery O2 Flow Rate FiO2 06/21/16 05:55 96.1 92 19 114/56 95 Assessment & Plan Problem List: (1) Schizophrenia ICD Code: F20.9 Assessment & Plan Titrate Zyprexa to 20 mg at bedtime. Continue oral Haldol supplementing Haldol Decanoate. Continue other psychotropics as ordered. Check and updated set of basic laboratories in the morning. Continue to monitor on the inpatient unit. Continue other medications and care as ordered. Justification for Cont. Inpt. Impairment in self-care. Medication changes and process. High risk for decompensation in a restrictive environment. Discharge Planning Patient requires new placement. Request HC Surrog/Guard Advoc?: Yes Problem Qualifiers (1) Schizophrenia: Qualified Code: F20.1 - Disorganized schizophrenia Cam Arshad MD Jun 21, 2016 12:05
[2016-06-21 18:43] VITALS: BP 147/67; PULSE 90; RESP 18; TEMP 96.7; O2SAT 97
[2016-06-21] MEDS: HALOPERIDOL LACTATE 5 MG/ML AMP IM PRN (19:29)
[2016-06-21] MEDS: diphenhydrAMINE HCL 50 MG/ML VIAL IM PRN (19:29)
[2016-06-21] MEDS: LORazepam 2 MG/ML VIAL IM PRN (19:30)
[2016-06-21] MEDS: OLANZapine ODT 20 MG TAB PO SCH (20:38)
[2016-06-22 05:35] VITALS: BP 132/71; PULSE 92; RESP 17; TEMP 97.9; O2SAT 96
[2016-06-22] MEDS: amLODIPine BESYLATE 5 MG TAB PO SCH (09:00)
[2016-06-22] MEDS: DOCUSATE SODIUM 100 MG CAP PO SCH ×2 (09:00→21:15)
[2016-06-22] MEDS: MULTIVITAMIN TAB PO SCH (09:00)
[2016-06-22] MEDS: HALOPERIDOL LACTATE ORAL CONC 10 MG/5 ML CUP PO SCH ×3 (09:09→18:32)
--- NOTE | 2016-06-22 11:59 | HHI.PYPN ---
Subjective Remarks Patient seen and examined with counselor. Chart reviewed. Case discussed with nursing staff who reports patient has been hesitant to accept oral medications. I also see that the patient had a verbal outburst yesterday afternoon for which she received Haldol PRN. On my examination today, the patient is calm and pleasant and remains quite childlike. She articulates no particular concerns. Denies side effects from medications. Nursing staff tells me the patient has not been bathing, and I have asked the patient to allow nurses to assist her in getting a bath, and she agrees to this. Review of Systems ROS Limitations: Poor Historian Except as stated in HPI: all other systems reviewed are Neg Objective Alert: Yes [place]: Person, Place Mood: Calm Affect: Other (childlike as before) Memory Intact: Comment (not formally assessed) Hallucinations: Other (none) Delusions: No Delusion Type: Other (no josue delusions) Suicidal: Ideation (no suicidal ideation) Homicidal: Ideation (no homicidal ideation) Insight/Judgment Poor Remarks No motor abnormalities noted. Thought process remains a little disorganized. Grooming and hygiene poor. Steady gait and station. Labs Labs reviewed. No new labs. Vitals/IOs Vital Signs Date Time Temp Pulse Resp B/P Pulse Ox O2 Delivery O2 Flow Rate FiO2 06/22/16 05:35 97.9 92 17 132/71 96 Assessment & Plan Problem List: (1) Schizophrenia ICD Code: F20.9 Assessment & Plan Add Depakene liquid to try to reduce patient's verbal outbursts. Plan to check a Depakote level after the appropriate interval and likely after a dose titration as given her weight she could likely tolerate up to 2 g of Depakote. LFTs and platelets okay. Continue other psychotropics as ordered. Continue to monitor on the high acuity unit. Continue other medications include as ordered. Justification for Cont. Inpt. Impairment in self-care. Impairment in social function. High risk for decompensation in a less restrictive environment. Discharge Planning Patient requires new placement. Conservatively, the patient will likely require at least 1-2 additional inpatient weeks to allow for placement. 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
[2016-06-22 19:00] VITALS: BP 132/93; PULSE 85; RESP 17; TEMP 98.7; O2SAT 97
[2016-06-22] MEDS: VALPROIC ACID SYRUP 250 MG/5 ML UDC PO SCH (21:00)
[2016-06-22] MEDS: OLANZapine ODT 20 MG TAB PO SCH (21:00)
[2016-06-23 05:35] VITALS: BP 139/67; PULSE 83; RESP 18; TEMP 97.4; O2SAT 98
[2016-06-23] MEDS: DOCUSATE SODIUM 100 MG CAP PO SCH ×2 (09:00→20:17)
[2016-06-23] MEDS: MULTIVITAMIN TAB PO SCH (09:00)
[2016-06-23] MEDS: VALPROIC ACID SYRUP 250 MG/5 ML UDC PO SCH ×2 (09:00→20:17)
[2016-06-23] MEDS: HALOPERIDOL LACTATE ORAL CONC 10 MG/5 ML CUP PO SCH ×3 (09:00→17:01)
[2016-06-23] MEDS: amLODIPine BESYLATE 5 MG TAB PO SCH (09:00)
--- NOTE | 2016-06-23 11:30 | HHI.PYPN ---
Subjective Remarks Patient seen and examined with counselor and nurse. Chart reviewed. Case discussed with nursing staff reports the patient had a behavioral outburst overnight regarding a shirt. On my examination today, the patient is calm and pleasant. She remains childlike. She agrees to let the nurse bathe her. No evident side effects from medications. Review of Systems ROS Limitations: Poor Historian Except as stated in HPI: all other systems reviewed are Neg Objective Alert: Yes [place]: Person, Place Mood: Calm Affect: Other (childlike) Memory Intact: Comment (not formally assessed) Hallucinations: Other (No AVH) Delusions: No Delusion Type: Other (No delusions) Suicidal: Ideation (No SI) Homicidal: Ideation (No HI) Insight/Judgment poor Remarks No motor abnormalities noted. Grooming and hygiene poor. Labs Labs reviewed. Vitals/IOs Vital Signs Date Time Temp Pulse Resp B/P Pulse Ox O2 Delivery O2 Flow Rate FiO2 06/23/16 05:35 97.4 83 18 139/67 98 Assessment & Plan Problem List: (1) Schizophrenia ICD Code: F20.9 Assessment & Plan Titrate Depakote through the weekend for the management of irritability and impulsiveness. Plan to check a Depakote level middle of next week. Continue other psychotropics as ordered. Continue to monitor on the high acuity unit. Continue other medications and care as ordered. Justification for Cont. Inpt. Impairment in social function. Medication changes in process. High risk for decompensation in a less restrictive environment. Discharge Planning Patient requires new placement. 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
[2016-06-23 13:30] VITALS: BP 137/73; PULSE 90
[2016-06-23 14:56] VITALS: BP 128/72; PULSE 90; O2SAT 98
[2016-06-23 17:40] VITALS: BP 135/71; PULSE 86; RESP 24; TEMP 98.3; O2SAT 97
[2016-06-23] MEDS: OLANZapine ODT 20 MG TAB PO SCH (20:18)
[2016-06-23] MEDS: HALOPERIDOL LACTATE 5 MG/ML AMP IM PRN (20:20)
[2016-06-23] MEDS: LORazepam 2 MG/ML VIAL IM PRN (22:55)
[2016-06-23] MEDS: diphenhydrAMINE HCL 50 MG/ML VIAL IM PRN (22:56)
[2016-06-24 06:47] VITALS: BP 132/63; PULSE 92; RESP 18; TEMP 97.8; O2SAT 98
[2016-06-24] MEDS: LORazepam 2 MG/ML VIAL IM PRN (08:28)
[2016-06-24] MEDS: HALOPERIDOL LACTATE 5 MG/ML AMP IM PRN ×3 (08:28→17:58)
[2016-06-24] MEDS: VALPROIC ACID SYRUP 250 MG/5 ML UDC PO SCH ×2 (08:48→21:27)
[2016-06-24] MEDS: DOCUSATE SODIUM 100 MG CAP PO SCH ×2 (08:49→21:27)
[2016-06-24] MEDS: amLODIPine BESYLATE 5 MG TAB PO SCH (08:49)
[2016-06-24] MEDS: MULTIVITAMIN TAB PO SCH (09:00)
[2016-06-24] MEDS: HALOPERIDOL LACTATE ORAL CONC 10 MG/5 ML CUP PO SCH ×3 (09:00→17:49)
--- NOTE | 2016-06-24 13:20 | HHI.PYPN ---
Subjective Remarks Pt seen and discussed with staff. Pt remains labile and is easily agitated. She calls RN and therapist "bitches" and is intrusive. She is compliant with medications. Self care remains poor and hair is noted to be disheveled and sticking up all over her head. No SI/HI. Objective Alert: Yes [place]: Person, Place Mood: Agitated Affect: Labile, Other (childlike) Memory Intact: Comment (fair) Hallucinations: Other (No AVH) Delusions: No Delusion Type: Other (No delusions) Suicidal: Ideation (No SI) Homicidal: Ideation (No HI) Insight/Judgment poor Vitals/IOs Vital Signs Date Time Temp Pulse Resp B/P Pulse Ox O2 Delivery O2 Flow Rate FiO2 06/24/16 06:47 97.8 92 18 132/63 98 Assessment & Plan Problem List: (1) Schizophrenia ICD Code: F20.9 Assessment & Plan Continue current tx plan. Estimated LOS: days Justification for Cont. Inpt. impairments in social functioning and safety Request HC Surrog/Guard Advoc?: Yes Problem Qualifiers (1) Schizophrenia: Qualified Code: F20.1 - Disorganized schizophrenia Leilani Fung MD Jun 24, 2016 13:20
[2016-06-24] MEDS: LORazepam 1 MG TAB PO PRN (16:04)
[2016-06-24 18:20] VITALS: BP 118/63; PULSE 90; RESP 18; TEMP 98.2; O2SAT 96
[2016-06-24] MEDS: OLANZapine ODT 20 MG TAB PO SCH (21:00)
[2016-06-25 05:35] VITALS: BP 133/60; PULSE 88; RESP 18; TEMP 97.7; O2SAT 97
[2016-06-25 08:39] LABS: AUTOMATED NEUTROPHIL # 5.6 TH/MM3 (1.8-7.7); BASOPHIL # 0.1 TH/MM3 (0-0.2); BASOPHIL % 1.1 % (0.0-2.0); EOSINOPHIL # 0.1 TH/MM3 (0-0.4); EOSINOPHIL % 0.7 % (0.0-4.0); HEMATOCRIT 40.5 % (35.0-46.0); HEMO FLAGS DIFF FINAL; LYMPH % 21.2 % (9.0-44.0); LYMPHOCYTE # 1.7 TH/MM3 (1.0-4.8); MEAN CELL VOLUME 89.6 FL (80.0-100.0); MEAN CORPUSCULAR HEMOGLOBIN 28.9 PG (27.0-34.0); MEAN CORPUSCULAR HGB CONC 32.2 % (32.0-36.0); MONO % 6.4 % (0.0-8.0); NEUT % 70.6 % (16.0-70.0); PLATELET COUNT 309 TH/MM3 (150-450); RED BLOOD COUNT 4.52 MIL/MM3 (4.00-5.30); RED CELL DISTRIBUTION WIDTH 15.6 % (11.6-17.2); WHITE BLOOD COUNT 7.9 TH/MM3 (4.0-11.0)
[2016-06-25 08:56] LABS: ALKALINE PHOSPHATASE 108 U/L (45-117); ALT (GPT) 28 U/L (10-53); ANION GAP 9 MEQ/L (5-15); AST (GOT) 12 U/L (15-37); BICARBONATE 23.1 MEQ/L (21.0-32.0); BLOOD UREA NITROGEN 10 MG/DL (7-18); CHLORIDE 109 MEQ/L (98-107); GLOMERULAR FILTRATION RATE 88 ML/MIN (>89); POTASSIUM 4.2 MEQ/L (3.5-5.1); SODIUM (NA) 141 MEQ/L (136-145); TOTAL BILIRUBIN ADULT 0.3 MG/DL (0.2-1.0)
[2016-06-25] MEDS: HALOPERIDOL LACTATE ORAL CONC 10 MG/5 ML CUP PO SCH ×4 (09:00→18:00)
[2016-06-25] MEDS: VALPROIC ACID SYRUP 250 MG/5 ML UDC PO SCH ×2 (09:45→20:59)
[2016-06-25] MEDS: HALOPERIDOL LACTATE 5 MG/ML AMP IM PRN (09:56)
[2016-06-25] MEDS: DOCUSATE SODIUM 100 MG CAP PO SCH ×2 (09:58→20:59)
[2016-06-25] MEDS: amLODIPine BESYLATE 5 MG TAB PO SCH (09:58)
[2016-06-25] MEDS: MULTIVITAMIN TAB PO SCH (09:58)
[2016-06-25] MEDS: LORazepam 2 MG/ML VIAL IM PRN (13:51)
--- NOTE | 2016-06-25 17:41 | HHI.PYPN ---
Subjective Remarks Pt seen and discussed with staff. She received Haldol IM x1 this morning due to agitation and aggression. Pt is easily agitated and reactive. She been screaming that she is being choked pushed and kicked while alone in her room. She is intrusive and and aggressively postures at nurse during rounds. Objective Alert: Yes [place]: Person, Place Mood: Agitated Affect: Labile, Other (childlike) Memory Intact: Comment (fair) Hallucinations: Auditory, Tactile, Other Delusions: Yes Delusion Type: Paranoid Suicidal: Ideation (No SI) Homicidal: Ideation (No HI) Insight/Judgment poor Labs Test 06/25/16 08:10 White Blood Count 7.9 TH/MM3 Red Blood Count 4.52 MIL/MM3 Hemoglobin 13.1 GM/DL Hematocrit 40.5 % Mean Corpuscular Volume 89.6 FL Mean Corpuscular Hemoglobin 28.9 PG Mean Corpuscular Hemoglobin 32.2 % Concent Red Cell Distribution Width 15.6 % Platelet Count 309 TH/MM3 Mean Platelet Volume 9.4 FL Neutrophils (%) (Auto) 70.6 % Lymphocytes (%) (Auto) 21.2 % Monocytes (%) (Auto) 6.4 % Eosinophils (%) (Auto) 0.7 % Basophils (%) (Auto) 1.1 % Neutrophils # (Auto) 5.6 TH/MM3 Lymphocytes # (Auto) 1.7 TH/MM3 Monocytes # (Auto) 0.5 TH/MM3 Eosinophils # (Auto) 0.1 TH/MM3 Basophils # (Auto) 0.1 TH/MM3 CBC Comment DIFF FINAL Differential Comment Sodium Level 141 MEQ/L Potassium Level 4.2 MEQ/L Chloride Level 109 MEQ/L Carbon Dioxide Level 23.1 MEQ/L Anion Gap 9 MEQ/L Blood Urea Nitrogen 10 MG/DL Creatinine 0.72 MG/DL Estimat Glomerular Filtration 88 ML/MIN Rate Random Glucose 127 MG/DL Calcium Level 8.3 MG/DL Total Bilirubin 0.3 MG/DL Aspartate Amino Transf 12 U/L (AST/SGOT) Alanine Aminotransferase 28 U/L (ALT/SGPT) Alkaline Phosphatase 108 U/L Ammonia 35 MCMOL/L Total Protein 6.5 GM/DL Albumin 3.2 GM/DL Vitals/IOs Vital Signs Date Time Temp Pulse Resp B/P Pulse Ox O2 Delivery O2 Flow Rate FiO2 06/25/16 05:35 97.7 88 18 133/60 97 Assessment & Plan Problem List: (1) Schizophrenia ICD Code: F20.9 Assessment & Plan Continue current tx plan. Estimated LOS: days Justification for Cont. Inpt. impairments in safety and reality construction Request HC Surrog/Guard Advoc?: Yes Problem Qualifiers (1) Schizophrenia: Qualified Code: F20.1 - Disorganized schizophrenia Leilani Fung MD Jun 25, 2016 17:41
[2016-06-25 17:55] VITALS: BP 121/66; PULSE 97; RESP 18; TEMP 98.5; O2SAT 97
[2016-06-25] MEDS: OLANZapine ODT 20 MG TAB PO SCH (20:59)
[2016-06-26 06:04] VITALS: BP 121/57; PULSE 89; RESP 18; TEMP 97.6; O2SAT 95
[2016-06-26] MEDS: VALPROIC ACID SYRUP 250 MG/5 ML UDC PO SCH ×2 (08:30→20:39)
[2016-06-26] MEDS: amLODIPine BESYLATE 5 MG TAB PO SCH (08:30)
[2016-06-26] MEDS: HALOPERIDOL LACTATE ORAL CONC 10 MG/5 ML CUP PO SCH ×3 (08:30→18:22)
[2016-06-26] MEDS: MULTIVITAMIN TAB PO SCH (08:30)
[2016-06-26] MEDS: DOCUSATE SODIUM 100 MG CAP PO SCH ×2 (08:30→20:39)
--- NOTE | 2016-06-26 10:19 | HHI.PYPN ---
Subjective Remarks Patient seen and examined with counselor. Chart reviewed. Case discussed with nursing staff reports that the patient had a behavioral screaming outburst this morning. On my examination today, the patient blandly denies having had such an outburst. She does say "the lady is bothering me. I'm not insane." He remains quite childlike. We try to reinforce that we will be unable to place the patient so long as she continues to act out in the way that she has. Denies side effects from medications. Review of Systems ROS Limitations: Poor Historian Except as stated in HPI: all other systems reviewed are Neg Objective Alert: Yes [place]: Person, Place Mood: Other (easily agitated) Affect: Labile (childlike) Memory Intact: Comment (fair) Hallucinations: Other (no reported AVH) Delusions: Yes Delusion Type: Paranoid Suicidal: Ideation (No SI) Homicidal: Ideation (No HI) Insight/Judgment Poor Remarks No motor abnormalities noted. Labs Labs reviewed. Vitals/IOs Vital Signs Date Time Temp Pulse Resp B/P Pulse Ox O2 Delivery O2 Flow Rate FiO2 06/26/16 06:04 97.6 89 18 121/57 95 Assessment & Plan Problem List: (1) Schizophrenia ICD Code: F20.9 Assessment & Plan Continue Depakote, which was recently titrated. Plan to check a Depakote level later this week. Plan to adjust the dose based on the level. Continue Zyprexa and Haldol as ordered. Continue to monitor on the high acuity unit. Continue other medications and care as ordered. Justification for Cont. Inpt. Impairment in social functioning. Impairment in reality construction. High risk for decompensation in a less restrictive environment. Discharge Planning I am growing somewhat more pessimistic that the patient will be able to be successfully placed given her ongoing behavioral outbursts. I will initiate a referral to the [facility] as a backup plan. 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
[2016-06-26] MEDS: LORazepam 1 MG TAB PO PRN (12:01)
--- NOTE | 2016-06-26 12:14 | HHI.PYPN ---
Subjective Remarks This is the psychiatric progress note for June 16, 2016. Patient remains paranoid and anxious. She is not very verbal with this physician. Affect is restricted in the morning but patient does not like to be asked questions and gets easily upset. Review of Systems ROS Limitations: Clinical Condition Objective Alert: Yes [place]: Person, Place Mood: Anxious Affect: Labile, Other (childlike) Memory Intact: Comment (fair) Hallucinations: Auditory, Tactile, Other Delusions: Yes Delusion Type: Paranoid Suicidal: Ideation (No SI) Homicidal: Ideation (No HI) Insight/Judgment Impaired Vitals/IOs Vital Signs Date Time Temp Pulse Resp B/P Pulse Ox O2 Delivery O2 Flow Rate FiO2 06/26/16 06:04 97.6 89 18 121/57 95 Assessment & Plan Problem List: (1) Schizophrenia ICD Code: F20.9 Assessment & Plan Estimated LOS: 7 days patient needs more time on medication 4 to work. Justification for Cont. Inpt. Likely to decompensate at lower level of care. Request HC Surrog/Guard Advoc?: Yes Problem Qualifiers (1) Schizophrenia: Qualified Code: F20.1 - Disorganized schizophrenia Wilberto Sheridan MD June 26, 2016 12:14
[2016-06-26 17:16] VITALS: BP 113/57; PULSE 86; RESP 18; TEMP 98; O2SAT 95
[2016-06-26] MEDS: OLANZapine ODT 20 MG TAB PO SCH (20:39)
[2016-06-27 06:02] VITALS: BP 125/59; PULSE 92; RESP 17; TEMP 98; O2SAT 99
[2016-06-27] MEDS: HALOPERIDOL LACTATE ORAL CONC 10 MG/5 ML CUP PO SCH ×3 (09:00→18:47)
[2016-06-27] MEDS: amLODIPine BESYLATE 5 MG TAB PO SCH (09:11)
[2016-06-27] MEDS: DOCUSATE SODIUM 100 MG CAP PO SCH ×2 (09:11→20:51)
[2016-06-27] MEDS: MULTIVITAMIN TAB PO SCH (09:11)
[2016-06-27] MEDS: VALPROIC ACID SYRUP 250 MG/5 ML UDC PO SCH ×2 (09:12→20:51)
--- NOTE | 2016-06-27 09:35 | HHI.PYPN ---
Subjective Remarks Patient seen and examined with counselor and nurse. Chart reviewed. Case discussed with counselor, nurse and recreation therapist in treatment team. Per nursing staff, patient is more or less unchanged. Recreation therapist notes that patient's participation in unit activities is limited by her propensity to threaten staff during such meetings. On my examination today, the patient is calm and childlike. She does become somewhat irritable and says "my mother doesn't want me to eat NOTHING! She don't want me to do NOTHING!" Patient is in fact eating per charting. Denies side effects from medications. Insight into mental illness remains quite poor. Review of Systems ROS Limitations: Psychotic, Poor Historian Except as stated in HPI: all other systems reviewed are Neg Objective Alert: Yes [place]: Person, Place Mood: Other (remains easily agitated) Affect: Labile (childlike) Memory Intact: Comment (fair) Hallucinations: Other (appears somewhat int stim) Delusions: Yes Delusion Type: Paranoid Suicidal: Ideation (No SI) Homicidal: Ideation (No HI) Insight/Judgment Poor Remarks No motor abnormalities noted. Thought process somewhat disorganized. Grooming and hygiene poor. Labs Labs reviewed. Vitals/IOs Vital Signs Date Time Temp Pulse Resp B/P Pulse Ox O2 Delivery O2 Flow Rate FiO2 06/27/16 06:02 98.0 92 17 125/59 99 Assessment & Plan Problem List: (1) Schizophrenia ICD Code: F20.9 Assessment & Plan Ongoing psychosis despite typical/atypical antipsychotic combination. Now that she is routinely accepting PO meds, I will re-introduce clozapine with plans to cross taper Zyprexa to clozapine. Zyprexa 15mg and clozapine 25mg tonight to start. CBC now and then weekly for ANC. Continue Haldol PO supplementing Haldol Dec. We might consider titrating Haldol Dec dose when it is next due in 1 week. Continue Depakote as ordered. Plan to check a Depakote and ammonia level tomorrow morning. Continue to monitor on the high acuity unit. Continue other medications and care as ordered. Justification for Cont. Inpt. Impairment in reality construction. Impairment in social function. Medication changes in process. High risk for decompensation in a restrictive environment. Discharge Planning [facility] placement might represent a viable alternative if patient's psychiatric symptomatology can be brought under better control. Request HC Surrog/Guard Advoc?: Yes Problem Qualifiers (1) Schizophrenia: Qualified Code: F20.1 - Disorganized schizophrenia Cam Arshad MD June 27, 2016 09:35
[2016-06-27] MEDS: LORazepam 2 MG/ML VIAL IM PRN ×2 (10:08→16:10)
[2016-06-27 15:36] LABS: AUTOMATED NEUTROPHIL # 6.2 TH/MM3 (1.8-7.7); BASOPHIL # 0.1 TH/MM3 (0-0.2); BASOPHIL % 0.9 % (0.0-2.0); EOSINOPHIL % 0.3 % (0.0-4.0); HEMATOCRIT 38.6 % (35.0-46.0); HEMO FLAGS DIFF FINAL; LYMPHOCYTE # 2.3 TH/MM3 (1.0-4.8); MEAN CELL VOLUME 89.3 FL (80.0-100.0); MEAN CORPUSCULAR HEMOGLOBIN 29.3 PG (27.0-34.0); MEAN CORPUSCULAR HGB CONC 32.8 % (32.0-36.0); MONO % 9.5 % (0.0-8.0); NEUT % 65.3 % (16.0-70.0); PLATELET COUNT 279 TH/MM3 (150-450); RED BLOOD COUNT 4.32 MIL/MM3 (4.00-5.30); RED CELL DISTRIBUTION WIDTH 15.8 % (11.6-17.2); WHITE BLOOD COUNT 9.4 TH/MM3 (4.0-11.0)
[2016-06-27] MEDS: HALOPERIDOL LACTATE 5 MG/ML AMP IM PRN (15:54)
[2016-06-27 18:12] VITALS: BP 142/61; PULSE 95; RESP 16; TEMP 96.1; O2SAT 99
[2016-06-27] MEDS: CYCLOBENZAPRINE HCL 10 MG TAB PO PRN (18:49)
[2016-06-27] MEDS: OLANZapine ODT 15 MG TAB PO SCH (20:51)
[2016-06-27] MEDS ORDERED: cloZAPine 25 MG TAB PO SCH (21:00)
[2016-06-28 06:09] VITALS: BP 147/65; PULSE 103; RESP 17; TEMP 98.1; O2SAT 98
[2016-06-28] MEDS: MULTIVITAMIN TAB PO SCH (09:42)
[2016-06-28] MEDS: DOCUSATE SODIUM 100 MG CAP PO SCH ×2 (09:42→21:00)
[2016-06-28] MEDS: VALPROIC ACID SYRUP 250 MG/5 ML UDC PO SCH ×2 (09:42→21:00)
[2016-06-28] MEDS: amLODIPine BESYLATE 5 MG TAB PO SCH (09:42)
[2016-06-28] MEDS: HALOPERIDOL LACTATE ORAL CONC 10 MG/5 ML CUP PO SCH ×3 (09:43→18:18)
--- NOTE | 2016-06-28 11:38 | HHI.PYPN ---
Subjective Remarks Patient seen and examined with counselor. Chart reviewed. Case d/w RN, who reports patient was angry when labs were drawn but otherwise has been no behavioral problem. On my exam today, patient remains quite childlike. She feels she is "getting better now." Noting that VPA level is low despite fairly robust dose, we discuss the possibility of covert non-adherence. Patient reacts strongly against this, denying it flatly and saying, "I always take my meds. My mother, she lies!" We have not spoken with patient's mother and reassure the patient of this. Denies side effects from meds. Review of Systems ROS Limitations: Poor Historian Except as stated in HPI: all other systems reviewed are Neg Objective Alert: Yes [place]: Person, Place Mood: Other (easily agitated.) Affect: Labile Memory Intact: Comment (fair) Hallucinations: Other (No AVH) Delusions: Yes Delusion Type: Paranoid Suicidal: Ideation (No SI) Homicidal: Ideation (No HI) Insight/Judgment poor Remarks No motor abnormalities noted. Remains childlike. Grooming and hygiene poor; RN did not want to further agitate patient yesterday after the lab incident by insisting on a bath, but she will do so today. Labs Test 06/27/16 06/28/16 15:15 06:40 White Blood Count 9.4 TH/MM3 Red Blood Count 4.32 MIL/MM3 Hemoglobin 12.7 GM/DL Hematocrit 38.6 % Mean Corpuscular Volume 89.3 FL Mean Corpuscular Hemoglobin 29.3 PG Mean Corpuscular Hemoglobin 32.8 % Concent Red Cell Distribution Width 15.8 % Platelet Count 279 TH/MM3 Mean Platelet Volume 9.6 FL Neutrophils (%) (Auto) 65.3 % Lymphocytes (%) (Auto) 24.0 % Monocytes (%) (Auto) 9.5 % Eosinophils (%) (Auto) 0.3 % Basophils (%) (Auto) 0.9 % Neutrophils # (Auto) 6.2 TH/MM3 Lymphocytes # (Auto) 2.3 TH/MM3 Monocytes # (Auto) 0.9 TH/MM3 Eosinophils # (Auto) 0.0 TH/MM3 Basophils # (Auto) 0.1 TH/MM3 CBC Comment DIFF FINAL Differential Comment Ammonia 21 MCMOL/L Valproic Acid (Depakene) Level 38 MCG/ML Labs reviewed. VPA level low. Ammonia wnl. ANC adequate for clozapine therapy. Vitals/IOs Vital Signs Date Time Temp Pulse Resp B/P Pulse Ox O2 Delivery O2 Flow Rate FiO2 06/28/16 06:09 98.1 103 17 147/65 98 Assessment & Plan Problem List: (1) Schizophrenia ICD Code: F20.9 Assessment & Plan Switch to Depakene liquid 750mg BID and check a new level over the weekend for control of impulsive aggression/irritability. Titrate clozapine to 50mg qHS for psychosis. Plan to continue to cross taper Zyprexa to clozapine. Haldol PO continues to supplement Haldol Dec. Booster dose of Haldol Dec due next week. Continue to monitor on high acuity unit. Continue other meds and care as ordered. Justification for Cont. Inpt. Impairment in social function. Impairment in reality constructions. Med changes in process. High risk for decompensation in a less restrictive environment. Discharge Planning State referral. Request HC Surrog/Guard Advoc?: Yes Problem Qualifiers (1) Schizophrenia: Qualified Code: F20.1 - Disorganized schizophrenia Cam Arshad MD June 28, 2016 11:38
[2016-06-28 18:11] VITALS: BP 114/98; PULSE 100; RESP 18; TEMP 97.3; O2SAT 94
[2016-06-28] MEDS ORDERED: cloZAPine 25 MG TAB PO SCH (21:00)
[2016-06-28] MEDS: OLANZapine ODT 15 MG TAB PO SCH (21:00)
[2016-06-29 05:58] VITALS: BP 148/102; PULSE 98; RESP 18; TEMP 98.2; O2SAT 97
[2016-06-29] MEDS: VALPROIC ACID SYRUP 250 MG/5 ML UDC PO SCH ×2 (09:22→20:45)
[2016-06-29] MEDS: DOCUSATE SODIUM 100 MG CAP PO SCH ×2 (09:22→20:45)
[2016-06-29] MEDS: HALOPERIDOL LACTATE ORAL CONC 10 MG/5 ML CUP PO SCH ×3 (09:22→18:26)
[2016-06-29] MEDS: amLODIPine BESYLATE 5 MG TAB PO SCH (09:23)
[2016-06-29] MEDS: MULTIVITAMIN TAB PO SCH (09:23)
--- NOTE | 2016-06-29 11:13 | HHI.PYPN ---
Subjective Remarks Patient seen and examined with counselor. Chart reviewed. Case discussed with nursing staff who reports patient had no problematic behaviors overnight. She did get a shower yesterday per nursing staff. On my examination today, the patient is calm and childlike. She verbalizes no psychotic symptoms. She denies any side effects from medications. Review of Systems ROS Limitations: Poor Historian Except as stated in HPI: all other systems reviewed are Neg Objective Alert: Yes [place]: Person, Place Mood: Happy Affect: Euthymic (childlike) Memory Intact: Comment (fair) Hallucinations: Other (No AVH) Delusions: No Delusion Type: Other (no delusions) Suicidal: Ideation (No SI) Homicidal: Ideation (No HI) Insight/Judgment Poor Remarks No motor abnormalities noted. Labs Labs reviewed. Vitals/IOs Vital Signs Date Time Temp Pulse Resp B/P Pulse Ox O2 Delivery O2 Flow Rate FiO2 06/29/16 05:58 98.2 98 18 148/102 97 Assessment & Plan Problem List: (1) Schizophrenia ICD Code: F20.9 Assessment & Plan Continue cross taper of Zyprexa to clozapine: Zyprexa 10 mg and clozapine 75 mg this evening. Continue Depakote as ordered. Plan for a Depakote level later this week. Continue oral Haldol supplementing Haldol Decanoate. Continue to monitor on the high acuity unit. Continue other medications and care as ordered. Justification for Cont. Inpt. Impairment in self-care. Medication changes in process. High risk for decompensation in a less restrictive environment. Discharge Planning Patient requires new placement. Request HC Surrog/Guard Advoc?: Yes Problem Qualifiers (1) Schizophrenia: Qualified Code: F20.1 - Disorganized schizophrenia Cam Arshad MD June 29, 2016 11:13
[2016-06-29 16:00] VITALS: BP 113/65; PULSE 87; RESP 18; TEMP 98.2
[2016-06-29] MEDS: cloZAPine 25 MG TAB PO SCH (20:45)
[2016-06-29] MEDS ORDERED: OLANZapine ODT 10 MG TAB PO SCH (21:00)
[2016-06-30 06:34] VITALS: BP 141/70; PULSE 106; RESP 16; TEMP 97.8; O2SAT 96
[2016-06-30] MEDS: VALPROIC ACID SYRUP 250 MG/5 ML UDC PO SCH ×2 (08:41→20:45)
[2016-06-30] MEDS: MULTIVITAMIN TAB PO SCH (08:41)
[2016-06-30] MEDS: HALOPERIDOL LACTATE ORAL CONC 10 MG/5 ML CUP PO SCH ×3 (08:41→18:10)
[2016-06-30] MEDS: amLODIPine BESYLATE 5 MG TAB PO SCH (08:41)
[2016-06-30] MEDS: DOCUSATE SODIUM 100 MG CAP PO SCH ×2 (08:41→20:45)
--- NOTE | 2016-06-30 09:05 | HHI.PYPN ---
Subjective Remarks Patient seen and examined with counselor. Chart reviewed. Case discussed with nursing staff who reports that the patient stripped off all of her close at 6 PM yesterday evening for no clear reason that otherwise was in fairly good behavioral control. On my examination today, the patient presents as quite childlike. She blandly denies stripping off her clothes. No SI or HI. No AVH. Denies side effects from medications. Review of Systems ROS Limitations: Poor Historian Except as stated in HPI: all other systems reviewed are Neg Objective Alert: Yes [place]: Person, Place Mood: Happy Affect: Euthymic, Other (childlike) Memory Intact: Comment (fair) Hallucinations: Other (No AVH) Delusions: No Delusion Type: Other (no delusional material) Suicidal: Ideation (No SI) Homicidal: Ideation (No HI) Insight/Judgment Poor Remarks No motor abnormalities noted. Labs Labs reviewed. No new labs. Vitals/IOs Vital Signs Date Time Temp Pulse Resp B/P Pulse Ox O2 Delivery O2 Flow Rate FiO2 06/30/16 06:34 97.8 106 16 141/70 96 Assessment & Plan Problem List: (1) Schizophrenia ICD Code: F20.9 Assessment & Plan Continue cross taper Zyprexa to clozapine over the weekend. Plan to taper and then discontinue Zyprexa and add a morning dose of clozapine, 25 mg tomorrow and 50 mg on Sunday morning. Continue nighttime dose of clozapine as ordered. Continue oral Haldol supplementing Haldol Decanoate, and the patient will require a booster dose of Haldol Decanoate after the weekend. Continue Depakote as ordered with plans to check a Depakote level of the weekend. Continue to monitor on the high acuity unit. Continue other medications and care as ordered. Justification for Cont. Inpt. Med changes in process. High risk for decompensation in a less restrictive environment. [facility] 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
[2016-06-30 17:55] VITALS: BP 115/60; PULSE 109; RESP 20; TEMP 97.9; O2SAT 96
[2016-06-30] MEDS: OLANZapine ODT 5 MG TAB PO SCH (20:45)
[2016-06-30] MEDS: cloZAPine 25 MG TAB PO SCH (20:45)
[2016-07-01 05:56] VITALS: BP 135/74; PULSE 100; RESP 18; TEMP 98.1; O2SAT 97
[2016-07-01] MEDS: DOCUSATE SODIUM 100 MG CAP PO SCH ×2 (08:47→21:22)
[2016-07-01] MEDS: amLODIPine BESYLATE 5 MG TAB PO SCH (08:47)
[2016-07-01] MEDS: HALOPERIDOL LACTATE ORAL CONC 10 MG/5 ML CUP PO SCH ×3 (08:47→17:28)
[2016-07-01] MEDS: cloZAPine 25 MG TAB PO SCH ×2 (08:47→21:22)
[2016-07-01] MEDS: VALPROIC ACID SYRUP 250 MG/5 ML UDC PO SCH ×2 (08:47→21:22)
[2016-07-01] MEDS: MULTIVITAMIN TAB PO SCH (08:47)
[2016-07-01] MEDS: CYCLOBENZAPRINE HCL 10 MG TAB PO PRN (08:49)
[2016-07-01] MEDS: LORazepam 1 MG TAB PO PRN (10:02)
[2016-07-01] MEDS: ACETAMINOPHEN 325 MG TAB PO PRN ×2 (10:32→17:33)
--- NOTE | 2016-07-01 13:46 | HHI.PYPN ---
Subjective Remarks Patient was seen and case discussed with nursing. Patient interviewed in bed. Per nursing, this morning patient was screaming and yelling do getting the wrong close. When asked about her labile behavior patient says she does not want to talk about it. Mood today is "okay, a little sad." Otherwise is compliant with her medications and tolerating them well. Objective Alert: Yes [place]: Person, Place Mood: Calm Affect: Labile, Other (childlike) Memory Intact: Comment (fair) Hallucinations: Other (No AVH) Delusions: No Delusion Type: Other (no delusional material) Suicidal: Ideation (No SI) Homicidal: Ideation (No HI) Insight/Judgment Poor Vitals/IOs Vital Signs Date Time Temp Pulse Resp B/P Pulse Ox O2 Delivery O2 Flow Rate FiO2 07/01/16 12:03 18 07/01/16 05:56 98.1 100 135/74 97 Assessment & Plan Problem List: (1) Schizophrenia ICD Code: F20.9 Assessment & Plan Continue cross taper to clozapine Justification for Cont. Inpt. 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
[2016-07-01 14:52] VITALS: BP 112/83; PULSE 113; RESP 18; TEMP 98.2; O2SAT 95
[2016-07-01] MEDS: OLANZapine ODT 5 MG TAB PO SCH (21:23)
[2016-07-02 05:45] VITALS: BP 123/66; PULSE 97; RESP 16; TEMP 98; O2SAT 95
[2016-07-02] MEDS: DOCUSATE SODIUM 100 MG CAP PO SCH ×2 (08:33→20:15)
[2016-07-02] MEDS: HALOPERIDOL LACTATE ORAL CONC 10 MG/5 ML CUP PO SCH ×3 (08:33→17:28)
[2016-07-02] MEDS: amLODIPine BESYLATE 5 MG TAB PO SCH (08:33)
[2016-07-02] MEDS: MULTIVITAMIN TAB PO SCH (08:33)
[2016-07-02] MEDS: VALPROIC ACID SYRUP 250 MG/5 ML UDC PO SCH ×2 (08:33→20:15)
[2016-07-02] MEDS: cloZAPine 25 MG TAB PO SCH ×2 (08:33→20:15)
--- NOTE | 2016-07-02 12:15 | HHI.PYPN ---
Subjective Remarks Patient was seen and case discussed with nursing. Patient interviewed in her room. She refused her Depakote level. Psychoeducation was done but she says she does not want her blood drawn. Otherwise behaving well on the unit. Continues to deny psychotic symptoms Objective Alert: Yes [place]: Person, Place Mood: Oppositional Affect: Blunted, Other (childlike) Memory Intact: Comment (fair) Hallucinations: Other (No AVH) Delusions: No Delusion Type: Other (no delusional material) Suicidal: Ideation (No SI) Homicidal: Ideation (No HI) Insight/Judgment Poor Vitals/IOs Vital Signs Date Time Temp Pulse Resp B/P Pulse Ox O2 Delivery O2 Flow Rate FiO2 07/02/16 05:45 98.0 97 16 123/66 95 Intake and Output 07/01/16 07/01/16 07/02/16 08:00 16:00 00:00 Intake Total 550 ml Balance 550 ml Assessment & Plan Problem List: (1) Schizophrenia ICD Code: F20.9 Assessment & Plan Continue current treatment plan Justification for Cont. Inpt. 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
[2016-07-02] MEDS: LORazepam 2 MG/ML VIAL IM PRN (14:45)
[2016-07-02] MEDS: HALOPERIDOL LACTATE 5 MG/ML AMP IM PRN (14:45)
[2016-07-02] MEDS ORDERED: diphenhydrAMINE HCL 50 MG/ML VIAL IM ONE (16:45)
[2016-07-02 18:07] VITALS: BP 142/88; PULSE 112; RESP 18; TEMP 98.4; O2SAT 94
[2016-07-03 05:50] VITALS: BP 123/67; PULSE 112; RESP 17; TEMP 97.3; O2SAT 100
[2016-07-03] MEDS: DOCUSATE SODIUM 100 MG CAP PO SCH ×2 (09:20→21:43)
[2016-07-03] MEDS: amLODIPine BESYLATE 5 MG TAB PO SCH (09:20)
[2016-07-03] MEDS: MULTIVITAMIN TAB PO SCH (09:20)
[2016-07-03] MEDS: cloZAPine 25 MG TAB PO SCH (09:20)
[2016-07-03] MEDS: VALPROIC ACID SYRUP 250 MG/5 ML UDC PO SCH ×2 (09:21→21:43)
[2016-07-03] MEDS: HALOPERIDOL LACTATE ORAL CONC 10 MG/5 ML CUP PO SCH ×3 (09:21→16:58)
--- NOTE | 2016-07-03 09:58 | HHI.PYPN ---
Subjective Remarks Patient seen and examined with counselor and nurse. Chart reviewed. Case discussed with nursing staff who reports patient required an ETO yesterday afternoon because she was loud and disruptive on the unit. On my examination today, the patient is calm and childlike. She recalls having the outburst yesterday but cannot recall why she was calling out in this way. She articulates a preference for assisted living placement overstate psychiatric hospitalization, and we explain that her loud outbursts are counterproductive with this goal in mind. No hallucinations. No SI or HI. Denies side effects from medications. Review of Systems ROS Limitations: Psychotic, Poor Historian Except as stated in HPI: all other systems reviewed are Neg Objective Alert: Yes [place]: Person, Place Mood: Calm Affect: Other (remains childlike) Memory Intact: Comment (fair) Hallucinations: Other (None) Delusions: No Delusion Type: Other (No delusions) Suicidal: Ideation (No SI) Homicidal: Ideation (No HI) Insight/Judgment Poor Remarks Behavior remains somewhat disorganized with intermittent yelling outbursts. No abnormal motor movements noted. Labs Test 07/03/16 07:11 Valproic Acid (Depakene) Level 60 MCG/ML Labs reviewed. Depakote level is within the therapeutic range. Vitals/IOs Vital Signs Date Time Temp Pulse Resp B/P Pulse Ox O2 Delivery O2 Flow Rate FiO2 07/03/16 05:50 97.3 112 17 123/67 100 Assessment & Plan Problem List: (1) Schizophrenia ICD Code: F20.9 Assessment & Plan Continue clozapine titration to 50/100 mg. Patient is due for Haldol Decanoate tomorrow, and I have ordered this. Continue Depakote as ordered. Continue to monitor on the high acuity unit. Continue other medications and care as ordered. Justification for Cont. Inpt. Impairment in social function. Medication changes in process. High risk for decompensation in a restrictive environment. Discharge Planning Pending psychiatric stabilization. 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
[2016-07-03 17:19] VITALS: BP 122/59; PULSE 101; RESP 18; TEMP 98.4; O2SAT 98
[2016-07-03] MEDS: cloZAPine 100 MG TAB PO SCH (21:43)
[2016-07-04 05:42] VITALS: BP 123/66; PULSE 103; RESP 17; TEMP 98.3; O2SAT 96
[2016-07-04 08:08] LABS: BASOPHIL % 0.6 % (0.0-2.0); EOSINOPHIL % 0.2 % (0.0-4.0); HEMO FLAGS DIFF FINAL; LYMPH % 29.4 % (9.0-44.0); MEAN CELL VOLUME 89.5 FL (80.0-100.0); MEAN CORPUSCULAR HEMOGLOBIN 28.8 PG (27.0-34.0); MEAN CORPUSCULAR HGB CONC 32.2 % (32.0-36.0); MONO % 10.6 % (0.0-8.0); NEUT % 59.2 % (16.0-70.0); PLATELET COUNT 249 TH/MM3 (150-450); RED BLOOD COUNT 4.58 MIL/MM3 (4.00-5.30); RED CELL DISTRIBUTION WIDTH 15.9 % (11.6-17.2); WHITE BLOOD COUNT 6.8 TH/MM3 (4.0-11.0)
[2016-07-04] MEDS ORDERED: HALOPERIDOL DECANOATE 50 MG/ML VIAL IM SCH (09:00)
[2016-07-04] MEDS: amLODIPine BESYLATE 5 MG TAB PO SCH (09:17)
[2016-07-04] MEDS: cloZAPine 25 MG TAB PO SCH (09:17)
[2016-07-04] MEDS: DOCUSATE SODIUM 100 MG CAP PO SCH ×2 (09:17→21:36)
[2016-07-04] MEDS: MULTIVITAMIN TAB PO SCH (09:17)
[2016-07-04] MEDS: HALOPERIDOL LACTATE ORAL CONC 10 MG/5 ML CUP PO SCH ×3 (09:17→18:00)
[2016-07-04] MEDS: VALPROIC ACID SYRUP 250 MG/5 ML UDC PO SCH ×2 (09:17→21:36)
--- NOTE | 2016-07-04 09:45 | HHI.PYPN ---
Subjective Remarks Patient seen and examined with nurse. Chart reviewed. Case discussed with nurse, counselor and recreation therapist in treatment team. Per nursing staff , the patient was having a good morning, although she did have an outburst following my interview with her. Recreation therapist notes that the patient is attending groups but has some inexplicable antipathy for one of the recreation therapists and will berate her when that particular therapist is present. On my examination today, the patient is calm and childlike. She continues to articulate a preference for [facility]. In service of this, we reinforced the importance of good behavioral control, although patient's subsequent behavioral outburst leads me to believe this reinforcement was not terribly successful. No side effects from meds. Review of Systems ROS Limitations: Poor Historian Except as stated in HPI: all other systems reviewed are Neg Objective Alert: Yes [place]: Person, Place Mood: Calm Affect: Other (childlike) Memory Intact: Comment (fair) Hallucinations: Other (No AVH) Delusions: No Delusion Type: Other (No delusions) Suicidal: Ideation (No SI) Homicidal: Ideation (No HI) Insight/Judgment Poor Remarks No motor abnormalities noted. Labs Test 07/04/16 06:46 White Blood Count 6.8 TH/MM3 Red Blood Count 4.58 MIL/MM3 Hemoglobin 13.2 GM/DL Hematocrit 41.0 % Mean Corpuscular Volume 89.5 FL Mean Corpuscular Hemoglobin 28.8 PG Mean Corpuscular Hemoglobin 32.2 % Concent Red Cell Distribution Width 15.9 % Platelet Count 249 TH/MM3 Mean Platelet Volume 9.9 FL Neutrophils (%) (Auto) 59.2 % Lymphocytes (%) (Auto) 29.4 % Monocytes (%) (Auto) 10.6 % Eosinophils (%) (Auto) 0.2 % Basophils (%) (Auto) 0.6 % Neutrophils # (Auto) 4.0 TH/MM3 Lymphocytes # (Auto) 2.0 TH/MM3 Monocytes # (Auto) 0.7 TH/MM3 Eosinophils # (Auto) 0.0 TH/MM3 Basophils # (Auto) 0.0 TH/MM3 CBC Comment DIFF FINAL Differential Comment Labs reviewed. ANC remains adequate for clozapine therapy. Vitals/IOs Vital Signs Date Time Temp Pulse Resp B/P Pulse Ox O2 Delivery O2 Flow Rate FiO2 07/04/16 05:42 98.3 103 17 123/66 96 Assessment & Plan Problem List: (1) Schizophrenia ICD Code: F20.9 Assessment & Plan Patient to receive booster dose of Haldol Decanoate today. To consider tapering oral Haldol. Continue clozapine as ordered with plans for further titration. Continue other psychotropics as ordered. Continue other medications and care as ordered. Justification for Cont. Inpt. Impairment in social functioning. Impairment in self-care. Medication changes planned. High risk for decompensation in a restrictive environment. Discharge Planning Counselor reports that state packet is under review. [facility] placement represents an alternative, but I do not think patient's behavior at present will allow for successful placement. Request HC Surrog/Guard Advoc?: Yes Problem Qualifiers (1) Schizophrenia: Qualified Code: F20.1 - Disorganized schizophrenia Cam Arshad MD July 04, 2016 09:45
[2016-07-04 18:27] VITALS: BP 137/65; PULSE 104; RESP 18; TEMP 98.2; O2SAT 97
[2016-07-04] MEDS: cloZAPine 100 MG TAB PO SCH (21:36)
[2016-07-05 05:51] VITALS: BP 142/66; PULSE 91; RESP 18; TEMP 97.3; O2SAT 95
[2016-07-05] MEDS: amLODIPine BESYLATE 5 MG TAB PO SCH (08:35)
[2016-07-05] MEDS: cloZAPine 25 MG TAB PO SCH (08:35)
[2016-07-05] MEDS: DOCUSATE SODIUM 100 MG CAP PO SCH ×2 (08:35→20:20)
[2016-07-05] MEDS: MULTIVITAMIN TAB PO SCH (08:35)
[2016-07-05] MEDS: VALPROIC ACID SYRUP 250 MG/5 ML UDC PO SCH ×2 (08:36→20:20)
[2016-07-05] MEDS: HALOPERIDOL LACTATE ORAL CONC 10 MG/5 ML CUP PO SCH ×3 (08:36→17:51)
--- NOTE | 2016-07-05 13:49 | HHI.PYPN ---
Subjective Remarks Patient seen and examined. Chart reviewed. Case discussed with nursing staff. On my examination this morning, the patient is calm and pleasant. She says that she took a shower last night at the behest of the night staff. She is in good spirits. No SI or HI voiced. No side effects from medications. Review of Systems ROS Limitations: Poor Historian Except as stated in HPI: all other systems reviewed are Neg Objective Alert: Yes [place]: Person, Place Mood: Calm Affect: Other (remains childlike) Memory Intact: Comment (fair) Hallucinations: Other (No AVH) Delusions: No Delusion Type: Other (no delusional material) Suicidal: Ideation (No SI) Homicidal: Ideation (No HI) Insight/Judgment Poor Remarks No motor abnormalities noted Labs Labs reviewed. Vitals/IOs Vital Signs Date Time Temp Pulse Resp B/P Pulse Ox O2 Delivery O2 Flow Rate FiO2 07/05/16 05:51 97.3 91 18 142/66 95 Assessment & Plan Problem List: (1) Schizophrenia ICD Code: F20.9 Assessment & Plan Continue current psychotropics as ordered. Plan to continue clozapine titration as patient's behavior necessitates. She seems to be having a good day today. To consider tapering back on oral Haldol given that she has received her second Decanoate injection. No signs of side effects at this time. Continue to monitor on the high acuity unit. Continue other medications and care as ordered. Justification for Cont. Inpt. Impairment in social function. High risk for decompensation in a restrictive environment. Discharge Planning [facility] Request HC Surrog/Guard Advoc?: Yes Problem Qualifiers (1) Schizophrenia: Qualified Code: F20.1 - Disorganized schizophrenia Cam Arshad MD July 05, 2016 13:49
[2016-07-05 17:13] VITALS: BP 126/59; PULSE 104; RESP 18; TEMP 98.3; O2SAT 95
[2016-07-05] MEDS: cloZAPine 100 MG TAB PO SCH (20:19)
[2016-07-06 06:00] VITALS: BP 131/65; PULSE 98; RESP 18; TEMP 98.2; O2SAT 100
[2016-07-06] MEDS: MULTIVITAMIN TAB PO SCH ×2 (09:00→09:45)
[2016-07-06] MEDS: DOCUSATE SODIUM 100 MG CAP PO SCH ×3 (09:00→20:34)
[2016-07-06] MEDS: cloZAPine 25 MG TAB PO SCH ×2 (09:00→09:45)
[2016-07-06] MEDS: HALOPERIDOL LACTATE ORAL CONC 10 MG/5 ML CUP PO SCH ×3 (09:00→18:00)
[2016-07-06] MEDS: amLODIPine BESYLATE 5 MG TAB PO SCH ×2 (09:00→09:45)
[2016-07-06] MEDS: VALPROIC ACID SYRUP 250 MG/5 ML UDC PO SCH ×2 (09:45→20:34)
--- NOTE | 2016-07-06 10:16 | HHI.PYPN ---
Subjective Remarks Patient seen and examined. Chart reviewed. Case discussed with nursing staff who reports patient has been no behavioral problem today. On my examination, patient is calm and in good spirits. She got a shower this morning without incident. No positive psychotic symptoms. Denies side effects from medications. Review of Systems ROS Limitations: Poor Historian Except as stated in HPI: all other systems reviewed are Neg Objective Alert: Yes [place]: Person, Place Mood: Calm Affect: Euthymic (again childlike) Memory Intact: Comment (fair) Hallucinations: Other (No AVH) Delusions: No Delusion Type: Other (no delusions) Suicidal: Ideation (No SI) Homicidal: Ideation (No HI) Insight/Judgment Poor Remarks No motor abnormalities noted. Labs Labs reviewed. No new labs. Vitals/IOs Vital Signs Date Time Temp Pulse Resp B/P Pulse Ox O2 Delivery O2 Flow Rate FiO2 07/06/16 06:00 98.2 98 18 131/65 100 Assessment & Plan Problem List: (1) Schizophrenia ICD Code: F20.9 Assessment & Plan Continue clozapine 50/100 mg. Continue oral Haldol supplementing Haldol Decanoate. As noted before, we could consider tapering oral Haldol since patient has already received her second Haldol Decanoate injection, but given that the patient is tolerating medications well without side effects and given that behavior seems to be improving, I am loath to make any changes to her regimen unless necessary. Continue Depakote as ordered. Continue to monitor on the inpatient unit. Continue other medications and care as ordered. Justification for Cont. Inpt. Impairment in self-care. High risk for decompensation in a restrictive environment. Discharge Planning Counselor is exploring [facility] as a potential placement for this patient. [facility] referral has also been completed as a backup. Request HC Surrog/Guard Advoc?: Yes Problem Qualifiers (1) Schizophrenia: Qualified Code: F20.1 - Disorganized schizophrenia Cam Arshad MD July 06, 2016 10:15
[2016-07-06 16:45] VITALS: BP 128/77; PULSE 104; RESP 18; TEMP 98.8; O2SAT 97
[2016-07-06] MEDS: cloZAPine 100 MG TAB PO SCH (20:34)
[2016-07-07 05:30] VITALS: BP 126/64; PULSE 100; RESP 18; TEMP 97.6; O2SAT 95
--- NOTE | 2016-07-07 09:17 | HHI.PYPN ---
Subjective Remarks Patient seen and examined with nurse. Chart reviewed. Case discussed with nursing staff who reports that the patient remains in very good behavioral control. The patient herself asked to take a shower and also to have her hair brushed. She was reported to be incontinent of urine overnight. On my examination today, the patient is in good spirits. She remains childlike but is calm and cooperative with examination. She continues to desire placement and requests that her father be involved in the decision-making regarding placement. I have conveyed this to the counselor. No SI or HI. Denies side effects from medications. Review of Systems ROS Limitations: Poor Historian Except as stated in HPI: all other systems reviewed are Neg Objective Alert: Yes [place]: Person, Place Mood: Calm Affect: Euthymic (mildly childlike) Memory Intact: Comment (Remains fair on clinical exam) Hallucinations: Other (No AVH) Delusions: No Delusion Type: Other (No delusional material) Suicidal: Ideation (No SI) Homicidal: Ideation (No HI) Insight/Judgment Poor Remarks No motor abnormalities noted Labs Labs reviewed. Vitals/IOs Vital Signs Date Time Temp Pulse Resp B/P Pulse Ox O2 Delivery O2 Flow Rate FiO2 07/07/16 05:30 97.6 100 18 126/64 95 Assessment & Plan Problem List: (1) Schizophrenia ICD Code: F20.9 Assessment & Plan Continue clozapine 50/100mg. I have ordered weekly CBC for next week. Continue Haldol 10mg PO TID supplementing Haldol Dec. Continue Depakote as ordered. I will check a UA given reported incontinence. Continue to monitor on inpatient unit. Continue other medications and care as ordered. Justification for Cont. Inpt. Impairment in self-care. High risk for decompensation in a less restrictive environment. Discharge Planning Patient requires placement. Case discussed with counselor. [facility] initiated as a backup plan. Request HC Surrog/Guard Advoc?: Yes Problem Qualifiers (1) Schizophrenia: Qualified Code: F20.1 - Disorganized schizophrenia Cam Arshad MD July 07, 2016 09:17
[2016-07-07] MEDS: DOCUSATE SODIUM 100 MG CAP PO SCH ×2 (09:34→20:34)
[2016-07-07] MEDS: amLODIPine BESYLATE 5 MG TAB PO SCH (09:34)
[2016-07-07] MEDS: HALOPERIDOL LACTATE ORAL CONC 10 MG/5 ML CUP PO SCH ×3 (09:34→18:00)
[2016-07-07] MEDS: VALPROIC ACID SYRUP 250 MG/5 ML UDC PO SCH ×2 (09:34→20:34)
[2016-07-07] MEDS: MULTIVITAMIN TAB PO SCH (09:36)
[2016-07-07] MEDS: cloZAPine 25 MG TAB PO SCH (09:36)
[2016-07-07 15:45] VITALS: BP 148/69; PULSE 104; RESP 18; TEMP 98; O2SAT 97
[2016-07-07] MEDS: cloZAPine 100 MG TAB PO SCH (20:34)
[2016-07-08 06:20] VITALS: BP 140/60; PULSE 100; RESP 16; TEMP 97.4; O2SAT 98
[2016-07-08] MEDS: amLODIPine BESYLATE 5 MG TAB PO SCH (09:34)
[2016-07-08] MEDS: HALOPERIDOL LACTATE ORAL CONC 10 MG/5 ML CUP PO SCH ×3 (09:35→18:47)
[2016-07-08] MEDS: VALPROIC ACID SYRUP 250 MG/5 ML UDC PO SCH ×2 (09:35→20:37)
[2016-07-08] MEDS: cloZAPine 25 MG TAB PO SCH (09:35)
[2016-07-08] MEDS: DOCUSATE SODIUM 100 MG CAP PO SCH ×2 (09:35→20:36)
[2016-07-08] MEDS: MULTIVITAMIN TAB PO SCH (09:35)
--- NOTE | 2016-07-08 13:45 | HHI.PYPN ---
Subjective Remarks Patient seen and examined with nurse. Chart reviewed. Case discussed with nursing staff who reports the patient has been in good behavioral control so far today. On my examination today, the patient is initially quite polite as somewhat childlike. She does have a brief temper tantrum because she is not allowed to go out for donuts and coffee, the reason being that she has threatened several times to spill coffee on the recreation therapist. She rapidly calms with minimal redirection. No side effects from medications. No physical complaints. Review of Systems ROS Limitations: Poor Historian Except as stated in HPI: all other systems reviewed are Neg Objective Alert: Yes [place]: Person, Place Mood: Calm Affect: Labile (mild, childlike) Memory Intact: Comment (Fair) Hallucinations: Other (No AVH) Delusions: No Delusion Type: Other (No delusions) Suicidal: Ideation (No SI) Homicidal: Ideation (No HI) Insight/Judgment Poor Remarks No motor abnormalities noted. Labs Labs reviewed. Vitals/IOs Vital Signs Date Time Temp Pulse Resp B/P Pulse Ox O2 Delivery O2 Flow Rate FiO2 07/08/16 06:20 97.4 100 16 140/60 98 Assessment & Plan Problem List: (1) Schizophrenia ICD Code: F20.9 Assessment & Plan Continue current psychotropics as ordered. Could consider titrating clozapine if behaviors persist, but outburst today was quite mild. Continue to monitor on the inpatient unit. Continue other medications and care as ordered. Justification for Cont. Inpt. High risk for decompensation in a less restrictive environment. Discharge Planning [facility] Request HC Surrog/Guard Advoc?: Yes Problem Qualifiers (1) Schizophrenia: Qualified Code: F20.1 - Disorganized schizophrenia Cam Arshad MD July 08, 2016 13:45
[2016-07-08 16:38] VITALS: BP 142/80; PULSE 105; RESP 18; TEMP 97.9; O2SAT 96
[2016-07-08] MEDS: cloZAPine 100 MG TAB PO SCH (20:36)
[2016-07-09 06:00] VITALS: BP 97/52; PULSE 90; RESP 15; TEMP 98.9
[2016-07-09] MEDS: DOCUSATE SODIUM 100 MG CAP PO SCH ×2 (09:00→21:11)
--- NOTE | 2016-07-09 10:13 | HHI.PYPN ---
Subjective Remarks Patient seen in dayroom today with floor staff, and nurse Mili, compliant medications, today denying suicidality homicidality voices or visions. States she had a good night last night. For now continue treatment Review of Systems Except as stated in HPI: all other systems reviewed are Neg Objective Alert: Yes [place]: Person, Place Mood: Calm Affect: Labile (mild, childlike) Memory Intact: Comment (Fair) Hallucinations: Other (No AVH) Delusions: No Delusion Type: Other (No delusions) Suicidal: Ideation (No SI) Homicidal: Ideation (No HI) Insight/Judgment Poor Vitals/IOs Vital Signs Date Time Temp Pulse Resp B/P Pulse Ox O2 Delivery O2 Flow Rate FiO2 07/09/16 06:00 98.9 90 15 97/52 07/08/16 16:38 96 Assessment & Plan Problem List: (1) Schizophrenia ICD Code: F20.9 Assessment & Plan Estimated LOS: days patient remains vigilant, somewhat guarded at times somewhat isolative but overall no significant behavioral problems at this time, compliant medications Justification for Cont. Inpt. At this time patient decompensate if placed in a lower level of care Discharge Planning To be determined Request HC Surrog/Guard Advoc?: Yes Problem Qualifiers (1) Schizophrenia: Qualified Code: F20.1 - Disorganized schizophrenia Lul Perez MD July 09, 2016 10:13
[2016-07-09] MEDS: VALPROIC ACID SYRUP 250 MG/5 ML UDC PO SCH ×2 (10:19→21:11)
[2016-07-09] MEDS: amLODIPine BESYLATE 5 MG TAB PO SCH (10:20)
[2016-07-09] MEDS: cloZAPine 25 MG TAB PO SCH (10:20)
[2016-07-09] MEDS: MULTIVITAMIN TAB PO SCH (10:20)
[2016-07-09] MEDS: HALOPERIDOL LACTATE ORAL CONC 10 MG/5 ML CUP PO SCH ×3 (10:20→18:33)
[2016-07-09 18:21] VITALS: BP 135/78; PULSE 108; RESP 18; TEMP 99; O2SAT 95
[2016-07-09] MEDS: cloZAPine 100 MG TAB PO SCH (21:11)
[2016-07-10 06:11] VITALS: BP 135/58; PULSE 109; RESP 18; TEMP 97.9; O2SAT 95
[2016-07-10] MEDS: VALPROIC ACID SYRUP 250 MG/5 ML UDC PO SCH ×2 (09:43→20:18)
[2016-07-10] MEDS: HALOPERIDOL LACTATE ORAL CONC 10 MG/5 ML CUP PO SCH ×3 (09:43→17:15)
[2016-07-10] MEDS: cloZAPine 25 MG TAB PO SCH (09:44)
[2016-07-10] MEDS: MULTIVITAMIN TAB PO SCH (09:44)
[2016-07-10] MEDS: amLODIPine BESYLATE 5 MG TAB PO SCH (09:44)
[2016-07-10] MEDS: DOCUSATE SODIUM 100 MG CAP PO SCH ×2 (09:44→20:18)
--- NOTE | 2016-07-10 11:14 | HHI.PYPN ---
Subjective Remarks Patient seen in her room with counselor Jonnie, patient calm pleasant, chart review, patient now denies voices denies suicidality, compliant with her medications. Patient had no significant upper's over the weekend. For now continue medications with increasing at bedtime Clozaril to 150 mg Review of Systems Except as stated in HPI: all other systems reviewed are Neg Objective Alert: Yes [place]: Person, Place Mood: Calm Affect: Labile (mild, childlike) Memory Intact: Comment (Fair) Hallucinations: Other (No AVH) Delusions: No Delusion Type: Other (No delusions) Suicidal: Ideation (No SI) Homicidal: Ideation (No HI) Insight/Judgment Poor Vitals/IOs Vital Signs Date Time Temp Pulse Resp B/P Pulse Ox O2 Delivery O2 Flow Rate FiO2 07/10/16 06:11 97.9 109 18 135/58 95 Assessment & Plan Problem List: (1) Schizophrenia ICD Code: F20.9 Assessment & Plan Patient remains isolative somewhat silly and disorganized. Compliant medications. See medication adjustment above Justification for Cont. Inpt. At this time patient decompensate placed in the lower level of care Discharge Planning To be determined Request HC Surrog/Guard Advoc?: Yes Problem Qualifiers (1) Schizophrenia: Qualified Code: F20.1 - Disorganized schizophrenia Lul Perez MD July 10, 2016 11:14
[2016-07-10] MEDS ORDERED: PILL SPLITTER OTHER PRN (11:45)
[2016-07-10 18:00] VITALS: BP 132/60; PULSE 84; RESP 18; TEMP 98.2; O2SAT 98
[2016-07-10] MEDS: cloZAPine 100 MG TAB PO SCH (20:19)
[2016-07-11 06:05] VITALS: BP 138/63; PULSE 96; RESP 18; TEMP 98.1; O2SAT 95
[2016-07-11 06:59] LABS: AUTOMATED NEUTROPHIL # 3.6 TH/MM3 (1.8-7.7); BASOPHIL % 0.7 % (0.0-2.0); EOSINOPHIL % 0.1 % (0.0-4.0); HEMATOCRIT 38.1 % (35.0-46.0); HEMO FLAGS DIFF FINAL; LYMPH % 31.1 % (9.0-44.0); MEAN CELL VOLUME 88.9 FL (80.0-100.0); MEAN CORPUSCULAR HEMOGLOBIN 29.9 PG (27.0-34.0); MEAN CORPUSCULAR HGB CONC 33.6 % (32.0-36.0); MONO % 11.2 % (0.0-8.0); NEUT % 56.9 % (16.0-70.0); PLATELET COUNT 240 TH/MM3 (150-450); RED BLOOD COUNT 4.28 MIL/MM3 (4.00-5.30); RED CELL DISTRIBUTION WIDTH 15.9 % (11.6-17.2); WHITE BLOOD COUNT 6.4 TH/MM3 (4.0-11.0)
[2016-07-11] MEDS: HALOPERIDOL LACTATE ORAL CONC 10 MG/5 ML CUP PO SCH ×3 (09:28→18:34)
[2016-07-11] MEDS: DOCUSATE SODIUM 100 MG CAP PO SCH ×2 (09:28→20:22)
[2016-07-11] MEDS: cloZAPine 25 MG TAB PO SCH (09:28)
[2016-07-11] MEDS: amLODIPine BESYLATE 5 MG TAB PO SCH (09:28)
[2016-07-11] MEDS: VALPROIC ACID SYRUP 250 MG/5 ML UDC PO SCH ×2 (09:29→20:23)
[2016-07-11] MEDS: MULTIVITAMIN TAB PO SCH (09:35)
--- NOTE | 2016-07-11 11:10 | HHI.PYPN ---
Subjective Remarks Patient seen in her room with nurse Stefani, chart reviewed, patient compliant medications, patient now denies suicidality or homicidality. We'll also should be some increased irritability did not look a little less now saying she has no mental illness, does not want to go to the [facility] wants to find her own place. Patient is also showing some poor hygiene with some increased body odor O she states she showers daily, has had some urinary incontinence will repeat UA to check if she may have a UTI Review of Systems Except as stated in HPI: all other systems reviewed are Neg Objective Alert: Yes [place]: Person, Place Mood: Calm Affect: Labile (mild, childlike) Memory Intact: Comment (Fair) Hallucinations: Other (No AVH) Delusions: No Delusion Type: Other (No delusions) Suicidal: Ideation (No SI) Homicidal: Ideation (No HI) Insight/Judgment Very poor Labs Test 07/11/16 06:27 White Blood Count 6.4 TH/MM3 Red Blood Count 4.28 MIL/MM3 Hemoglobin 12.8 GM/DL Hematocrit 38.1 % Mean Corpuscular Volume 88.9 FL Mean Corpuscular Hemoglobin 29.9 PG Mean Corpuscular Hemoglobin 33.6 % Concent Red Cell Distribution Width 15.9 % Platelet Count 240 TH/MM3 Mean Platelet Volume 9.9 FL Neutrophils (%) (Auto) 56.9 % Lymphocytes (%) (Auto) 31.1 % Monocytes (%) (Auto) 11.2 % Eosinophils (%) (Auto) 0.1 % Basophils (%) (Auto) 0.7 % Neutrophils # (Auto) 3.6 TH/MM3 Lymphocytes # (Auto) 2.0 TH/MM3 Monocytes # (Auto) 0.7 TH/MM3 Eosinophils # (Auto) 0.0 TH/MM3 Basophils # (Auto) 0.0 TH/MM3 CBC Comment DIFF FINAL Differential Comment Vitals/IOs Vital Signs Date Time Temp Pulse Resp B/P Pulse Ox O2 Delivery O2 Flow Rate FiO2 07/11/16 06:05 98.1 96 18 138/63 95 Assessment & Plan Problem List: (1) Schizophrenia ICD Code: F20.9 Assessment & Plan Estimated LOS: days patient somewhat calmer now denying voices visions though still somewhat paranoid and vigilant. Also his having some urinary incontinence with some increased body odor will check UA Justification for Cont. Inpt. At this time patient will decompensate if placed in the lower level of care Discharge Planning To be determined Request HC Surrog/Guard Advoc?: Yes Problem Qualifiers (1) Schizophrenia: Qualified Code: F20.1 - Disorganized schizophrenia Lul Perez MD July 11, 2016 11:10
[2016-07-11 18:16] LABS: BLOOD, URINE NEG (NEG); GLUCOSE,URINE NEG (NEG); KETONE, URINE NEG (NEG); NITRITE,URINE NEG (NEG)
[2016-07-11 18:25] LABS: URINE COLOR STRAW (YELLW/STRAW)
[2016-07-11 18:26] LABS: COMMENT (UR) CULT NOT INDICATED; CULTURE IF INDICATED CULT NOT INDICATED
[2016-07-11] MEDS: cloZAPine 100 MG TAB PO SCH (20:22)
[2016-07-11 20:35] VITALS: BP 157/70; PULSE 106; RESP 18; TEMP 97.8; O2SAT 95
[2016-07-12 06:02] VITALS: BP 145/65; PULSE 107; RESP 16; TEMP 98.5; O2SAT 96
[2016-07-12] MEDS: VALPROIC ACID SYRUP 250 MG/5 ML UDC PO SCH ×2 (08:59→20:05)
[2016-07-12] MEDS: HALOPERIDOL LACTATE ORAL CONC 10 MG/5 ML CUP PO SCH ×3 (08:59→18:35)
[2016-07-12] MEDS: DOCUSATE SODIUM 100 MG CAP PO SCH ×2 (09:00→20:04)
[2016-07-12] MEDS: cloZAPine 25 MG TAB PO SCH (09:00)
[2016-07-12] MEDS: MULTIVITAMIN TAB PO SCH (09:00)
[2016-07-12] MEDS: amLODIPine BESYLATE 5 MG TAB PO SCH (09:02)
--- NOTE | 2016-07-12 15:19 | HHI.PYPN ---
Subjective Remarks Patient seen in day room with nurse Stefani, patient up clean and casually dressed hygiene is markedly improved. Patient showing marked improvement in her mood and her affect also. She does deny voices at the present time, she also shows less vigilance and paranoia. She is compliant with her medications. It appears her father visited last night and had a good visit. For now continue treatment no change Review of Systems Except as stated in HPI: all other systems reviewed are Neg Objective Alert: Yes [place]: Person, Place Mood: Calm Affect: Labile (mild, childlike) Memory Intact: Comment (Fair) Hallucinations: Other (No AVH) Delusions: No Delusion Type: Other (No delusions) Suicidal: Ideation (No SI) Homicidal: Ideation (No HI) Insight/Judgment Poor Labs Test 07/11/16 18:00 Urine Color STRAW Urine Turbidity CLEAR Urine pH 5.0 Urine Specific [place] 1.002 Urine Protein NEG mg/dL Urine Glucose (UA) NEG mg/dL Urine Ketones NEG mg/dL Urine Occult Blood NEG Urine Nitrite NEG Urine Bilirubin NEG Urine Urobilinogen LESS THAN 2.0 MG/DL Urine Leukocyte Esterase NEG Urine RBC LESS THAN 1 /hpf Urine WBC LESS THAN 1 /hpf Microscopic Urinalysis Comment CULT NOT INDICATED Vitals/IOs Vital Signs Date Time Temp Pulse Resp B/P Pulse Ox O2 Delivery O2 Flow Rate FiO2 07/12/16 06:02 98.5 107 16 145/65 96 Assessment & Plan Problem List: (1) Schizophrenia ICD Code: F20.9 Assessment & Plan Estimated LOS: days patient psychosis is diminishing, she is compliant medications, some improvement in her mood and affect Justification for Cont. Inpt. 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
[2016-07-12 18:04] VITALS: BP 162/72; PULSE 110; RESP 16; TEMP 98.3; O2SAT 98
[2016-07-12] MEDS: cloZAPine 100 MG TAB PO SCH (20:04)
[2016-07-13 05:31] VITALS: BP 124/57; PULSE 99; RESP 17; TEMP 98; O2SAT 95
[2016-07-13] MEDS: HALOPERIDOL LACTATE ORAL CONC 10 MG/5 ML CUP PO SCH ×3 (08:06→18:00)
[2016-07-13] MEDS: VALPROIC ACID SYRUP 250 MG/5 ML UDC PO SCH ×2 (08:06→20:57)
[2016-07-13] MEDS: cloZAPine 25 MG TAB PO SCH (08:06)
[2016-07-13] MEDS: amLODIPine BESYLATE 5 MG TAB PO SCH (08:06)
[2016-07-13] MEDS: DOCUSATE SODIUM 100 MG CAP PO SCH ×2 (08:06→20:55)
[2016-07-13] MEDS: MULTIVITAMIN TAB PO SCH (08:07)
[2016-07-13 15:07] VITALS: BP 119/71; PULSE 108; RESP 18; TEMP 98.6; O2SAT 94
--- NOTE | 2016-07-13 15:49 | HHI.PYPN ---
Subjective Remarks Patient seen in [place] with nurse Dominique, patient continues to show some improvement , compliant medications, I did order CBC with differential on Sunday for per Clozaril routine, patient clean need to better focus, talking about possibility perhaps of an alternative placement the [facility] Review of Systems Except as stated in HPI: all other systems reviewed are Neg Objective Alert: Yes [place]: Person, Place Mood: Calm Affect: Labile (mild, childlike) Memory Intact: Comment (Fair) Hallucinations: Other (No AVH) Delusions: No Delusion Type: Other (No delusions) Suicidal: Ideation (No SI) Homicidal: Ideation (No HI) Insight/Judgment Poor Vitals/IOs Vital Signs Date Time Temp Pulse Resp B/P Pulse Ox O2 Delivery O2 Flow Rate FiO2 07/13/16 15:07 98.6 108 18 119/71 94 Assessment & Plan Problem List: (1) Schizophrenia ICD Code: F20.9 Assessment & Plan Estimated LOS: days she continues somewhat vigilant and guarded though better with improved affect eye contact and behavior Justification for Cont. Inpt. At this time patient will decompensate if placed in a lower level of care Discharge Planning To be determined Request HC Surrog/Guard Advoc?: Yes Problem Qualifiers (1) Schizophrenia: Qualified Code: F20.1 - Disorganized schizophrenia Lul Perez MD July 13, 2016 15:49
[2016-07-13] MEDS: cloZAPine 100 MG TAB PO SCH (20:56)
[2016-07-14 06:20] VITALS: BP 131/68; PULSE 100; RESP 18; TEMP 97.8; O2SAT 97
[2016-07-14] MEDS: cloZAPine 25 MG TAB PO SCH (08:06)
[2016-07-14] MEDS: HALOPERIDOL LACTATE ORAL CONC 10 MG/5 ML CUP PO SCH ×3 (08:06→17:53)
[2016-07-14] MEDS: VALPROIC ACID SYRUP 250 MG/5 ML UDC PO SCH ×2 (08:06→20:57)
[2016-07-14] MEDS: amLODIPine BESYLATE 5 MG TAB PO SCH (08:06)
[2016-07-14] MEDS: DOCUSATE SODIUM 100 MG CAP PO SCH ×2 (08:06→20:57)
[2016-07-14] MEDS: MULTIVITAMIN TAB PO SCH (08:06)
--- NOTE | 2016-07-14 15:05 | HHI.PYPN ---
Subjective Remarks Patient seen in [place] with nurse Dominique. Patient continues to do well is clean and neat dressed appropriately. Continues calm denying voices or visions no behavior problem. Compliant medications. Counselor now starting to look also at possible [facility] referral instead of the [facility] Review of Systems Except as stated in HPI: all other systems reviewed are Neg Objective Alert: Yes [place]: Person, Place Mood: Calm Affect: Labile (mild, childlike) Memory Intact: Comment (Fair) Hallucinations: Other (No AVH) Delusions: No Delusion Type: Other (No delusions) Suicidal: Ideation (No SI) Homicidal: Ideation (No HI) Insight/Judgment Poor Vitals/IOs Vital Signs Date Time Temp Pulse Resp B/P Pulse Ox O2 Delivery O2 Flow Rate FiO2 07/14/16 06:20 97.8 100 18 131/68 97 Assessment & Plan Problem List: (1) Schizophrenia ICD Code: F20.9 Assessment & Plan Estimated LOS: days patient calmer more appropriate psychosis has markedly diminished. Compliant medications Justification for Cont. Inpt. At this time patient will decompensate the placed in a lower level of care Discharge Planning To be determined Request HC Surrog/Guard Advoc?: Yes Problem Qualifiers (1) Schizophrenia: Qualified Code: F20.1 - Disorganized schizophrenia Lul Perez MD July 14, 2016 15:05
[2016-07-14 18:12] VITALS: BP 135/63; PULSE 108; RESP 20; TEMP 98.4; O2SAT 97
[2016-07-14] MEDS: cloZAPine 100 MG TAB PO SCH (20:57)
[2016-07-15 06:10] VITALS: BP 136/61; PULSE 104; RESP 17; TEMP 97.2; O2SAT 95
[2016-07-15] MEDS: HALOPERIDOL LACTATE ORAL CONC 10 MG/5 ML CUP PO SCH ×3 (08:17→17:11)
[2016-07-15] MEDS: cloZAPine 25 MG TAB PO SCH (08:17)
[2016-07-15] MEDS: DOCUSATE SODIUM 100 MG CAP PO SCH ×2 (08:17→20:03)
[2016-07-15] MEDS: amLODIPine BESYLATE 5 MG TAB PO SCH (08:18)
[2016-07-15] MEDS: VALPROIC ACID SYRUP 250 MG/5 ML UDC PO SCH ×2 (08:18→20:04)
[2016-07-15] MEDS: MULTIVITAMIN TAB PO SCH (08:18)
--- NOTE | 2016-07-15 15:34 | HHI.PYPN ---
Subjective Remarks Patient was seen and case discussed with nursing. Patient is pleasant and cooperative with exam. Behaving well per nursing. This compliant with her medications. Denies auditory visual hallucinations Objective Alert: Yes [place]: Person, Place Mood: Calm Affect: Restricted Memory Intact: Comment (Fair) Hallucinations: Other (No AVH) Delusions: No Delusion Type: Other (No delusions) Suicidal: Ideation (No SI) Homicidal: Ideation (No HI) Insight/Judgment Fair Vitals/IOs Vital Signs Date Time Temp Pulse Resp B/P Pulse Ox O2 Delivery O2 Flow Rate FiO2 07/15/16 06:10 97.2 104 17 136/61 95 Assessment & Plan Problem List: (1) Schizophrenia ICD Code: F20.9 Assessment & Plan Continue current treatment plan Justification for Cont. Inpt. Patient will decompensate in a less restrictive setting Request HC Surrog/Guard Advoc?: Yes Problem Qualifiers (1) Schizophrenia: Qualified Code: F20.1 - Disorganized schizophrenia Carlos Larry DO July 15, 2016 15:34
[2016-07-15 18:08] VITALS: BP 138/66; PULSE 107; RESP 17; TEMP 98.9; O2SAT 97
[2016-07-15] MEDS: cloZAPine 100 MG TAB PO SCH (20:03)
[2016-07-15] MEDS: ACETAMINOPHEN 325 MG TAB PO PRN (20:03)
[2016-07-16 06:17] VITALS: BP 150/67; PULSE 90; RESP 16; TEMP 98.1; O2SAT 98
[2016-07-16 06:31] VITALS: BP 150/67; PULSE 90; RESP 16; TEMP 98.1; O2SAT 98
[2016-07-16] MEDS: DOCUSATE SODIUM 100 MG CAP PO SCH ×2 (08:26→20:26)
[2016-07-16] MEDS: VALPROIC ACID SYRUP 250 MG/5 ML UDC PO SCH ×2 (08:26→20:26)
[2016-07-16] MEDS: HALOPERIDOL LACTATE ORAL CONC 10 MG/5 ML CUP PO SCH ×3 (08:26→16:49)
[2016-07-16] MEDS: cloZAPine 25 MG TAB PO SCH (08:26)
[2016-07-16] MEDS: amLODIPine BESYLATE 5 MG TAB PO SCH (08:26)
[2016-07-16] MEDS: MULTIVITAMIN TAB PO SCH (08:26)
--- NOTE | 2016-07-16 15:56 | HHI.PYPN ---
Subjective Remarks Patient was seen and case discussed with nursing. Patient is pleasant and cooperative with exam. Behaving well on the unit compliant with her medications. Bright and cheerful during the interview. Objective Alert: Yes [place]: Person, Place Mood: Calm Affect: Restricted Memory Intact: Comment (Fair) Hallucinations: Other (No AVH) Delusions: No Delusion Type: Other (No delusions) Suicidal: Ideation (No SI) Homicidal: Ideation (No HI) Insight/Judgment Improving Vitals/IOs Vital Signs Date Time Temp Pulse Resp B/P Pulse Ox O2 Delivery O2 Flow Rate FiO2 07/16/16 06:31 98.1 90 16 150/67 98 Assessment & Plan Problem List: (1) Schizophrenia ICD Code: F20.9 Assessment & Plan Continue current treatment plan Justification for Cont. Inpt. Patient will decompensate in a less restrictive setting Request HC Surrog/Guard Advoc?: Yes Problem Qualifiers (1) Schizophrenia: Qualified Code: F20.1 - Disorganized schizophrenia Carlos Larry DO July 16, 2016 15:56
[2016-07-16 20:03] VITALS: BP 153/84; PULSE 111; RESP 18; TEMP 98.5; O2SAT 99
[2016-07-16] MEDS: cloZAPine 100 MG TAB PO SCH (20:26)
[2016-07-16] MEDS: diphenhydrAMINE HCL 50 MG CAP PO PRN (20:28)
[2016-07-17 06:04] VITALS: BP 140/60; PULSE 101; RESP 17; TEMP 97.2; O2SAT 96
[2016-07-17 08:06] LABS: AUTOMATED NEUTROPHIL # 3.4 TH/MM3 (1.8-7.7); BASOPHIL # 0.1 TH/MM3 (0-0.2); BASOPHIL % 2.2 % (0.0-2.0); EOSINOPHIL % 0.2 % (0.0-4.0); HEMATOCRIT 39.2 % (35.0-46.0); HEMO FLAGS DIFF FINAL; LYMPH % 35.3 % (9.0-44.0); LYMPHOCYTE # 2.3 TH/MM3 (1.0-4.8); MEAN CELL VOLUME 89.4 FL (80.0-100.0); MEAN CORPUSCULAR HGB CONC 32.5 % (32.0-36.0); MONO % 10.9 % (0.0-8.0); NEUT % 51.4 % (16.0-70.0); PLATELET COUNT 259 TH/MM3 (150-450); RED BLOOD COUNT 4.39 MIL/MM3 (4.00-5.30); RED CELL DISTRIBUTION WIDTH 16.1 % (11.6-17.2); WHITE BLOOD COUNT 6.6 TH/MM3 (4.0-11.0)
[2016-07-17] MEDS: VALPROIC ACID SYRUP 250 MG/5 ML UDC PO SCH ×2 (08:36→20:32)
[2016-07-17] MEDS: MULTIVITAMIN TAB PO SCH (08:36)
[2016-07-17] MEDS: DOCUSATE SODIUM 100 MG CAP PO SCH ×2 (08:36→20:32)
[2016-07-17] MEDS: cloZAPine 25 MG TAB PO SCH (08:36)
[2016-07-17] MEDS: amLODIPine BESYLATE 5 MG TAB PO SCH (08:36)
[2016-07-17] MEDS: HALOPERIDOL LACTATE ORAL CONC 10 MG/5 ML CUP PO SCH ×3 (08:36→17:49)
--- NOTE | 2016-07-17 17:22 | HHI.PYPN ---
Subjective Remarks Seen in day room with nurse Dominique, chart reviewed. Patient continues to show good affect and fairly stable mood though there is a little more nervousness anxiety today than Sunday. Patient overall continues to deny suicidality homicidality voices or visions. Continues to wish [facility] placement [facility]. Pliant medications. For now continue treatment staff is noted some mild increase in her blood pressure or pulse will reconsult hospitalist to check that Review of Systems Except as stated in HPI: all other systems reviewed are Neg Objective Alert: Yes [place]: Person, Place Mood: Calm Affect: Restricted Memory Intact: Comment (Fair) Hallucinations: Other (No AVH) Delusions: No Delusion Type: Other (No delusions) Suicidal: Ideation (No SI) Homicidal: Ideation (No HI) Insight/Judgment Poor Labs Test 07/17/16 06:26 White Blood Count 6.6 TH/MM3 Red Blood Count 4.39 MIL/MM3 Hemoglobin 12.7 GM/DL Hematocrit 39.2 % Mean Corpuscular Volume 89.4 FL Mean Corpuscular Hemoglobin 29.0 PG Mean Corpuscular Hemoglobin 32.5 % Concent Red Cell Distribution Width 16.1 % Platelet Count 259 TH/MM3 Mean Platelet Volume 9.8 FL Neutrophils (%) (Auto) 51.4 % Lymphocytes (%) (Auto) 35.3 % Monocytes (%) (Auto) 10.9 % Eosinophils (%) (Auto) 0.2 % Basophils (%) (Auto) 2.2 % Neutrophils # (Auto) 3.4 TH/MM3 Lymphocytes # (Auto) 2.3 TH/MM3 Monocytes # (Auto) 0.7 TH/MM3 Eosinophils # (Auto) 0.0 TH/MM3 Basophils # (Auto) 0.1 TH/MM3 CBC Comment DIFF FINAL Differential Comment Vitals/IOs Vital Signs Date Time Temp Pulse Resp B/P Pulse Ox O2 Delivery O2 Flow Rate FiO2 07/17/16 06:04 97.2 101 17 140/60 96 Assessment & Plan Problem List: (1) Schizophrenia ICD Code: F20.9 Assessment & Plan Estimated LOS: days patient psychosis is resolving, no significant behavior problems. Compliant medications Justification for Cont. Inpt. At this time patient will decompensate the placed in a lower level of care Discharge Planning To be determined Request HC Surrog/Guard Advoc?: Yes Problem Qualifiers (1) Schizophrenia: Qualified Code: F20.1 - Disorganized schizophrenia Lul Perez MD July 17, 2016 17:22
[2016-07-17 18:55] VITALS: BP 132/70; PULSE 109; RESP 18; TEMP 98.3; O2SAT 95
[2016-07-17] MEDS: cloZAPine 100 MG TAB PO SCH (20:32)
[2016-07-18 05:48] VITALS: BP 106/54; PULSE 95; RESP 18; TEMP 97.7; O2SAT 96
[2016-07-18] MEDS: VALPROIC ACID SYRUP 250 MG/5 ML UDC PO SCH ×2 (08:17→20:36)
[2016-07-18] MEDS: HALOPERIDOL LACTATE ORAL CONC 10 MG/5 ML CUP PO SCH ×3 (08:17→17:19)
[2016-07-18] MEDS: DOCUSATE SODIUM 100 MG CAP PO SCH ×2 (08:17→20:36)
[2016-07-18] MEDS: MULTIVITAMIN TAB PO SCH (08:17)
[2016-07-18] MEDS: cloZAPine 25 MG TAB PO SCH (08:17)
[2016-07-18] MEDS: amLODIPine BESYLATE 5 MG TAB PO SCH (08:17)
--- NOTE | 2016-07-18 12:19 | HHI.PYPN ---
Subjective Remarks Patient seen in day room with nurse, patient calmer more pleasant today no complaints of back pain today. Denies voices or visions. States she had a somewhat neutral talk with her father. She still is hoping for an appropriate placement that does not include the [facility] Review of Systems Except as stated in HPI: all other systems reviewed are Neg Objective Alert: Yes [place]: Person, Place Mood: Calm Affect: Restricted Memory Intact: Comment (Fair) Hallucinations: Other (No AVH) Delusions: No Delusion Type: Other (No delusions) Suicidal: Ideation (No SI) Homicidal: Ideation (No HI) Insight/Judgment Poor Vitals/IOs Vital Signs Date Time Temp Pulse Resp B/P Pulse Ox O2 Delivery O2 Flow Rate FiO2 07/18/16 05:48 97.7 95 18 106/54 96 Assessment & Plan Problem List: (1) Schizophrenia ICD Code: F20.9 Assessment & Plan Estimated LOS: days patient continues calm cooperative though somewhat vigilant inpatient's showing no behavioral issues. There is still some good attempts at maintaining good hygiene. For now continue treatment Justification for Cont. Inpt. At this time patient will decompensate if placed in a lower level of care Discharge Planning To be determined Request HC Surrog/Guard Advoc?: Yes Problem Qualifiers (1) Schizophrenia: Qualified Code: F20.1 - Disorganized schizophrenia Lul Perez MD July 18, 2016 12:18
[2016-07-18 18:00] VITALS: BP 144/84; PULSE 110; RESP 18; TEMP 97.9; O2SAT 96
[2016-07-18] MEDS ORDERED: KETOROLAC TROMETHAMINE 10 MG TAB PO PRN (18:30)
--- NOTE | 2016-07-18 18:42 | HHI.PR ---
Subjective Remarks reconsult for tachycardia and hypertension Patient states that she fell and hit her back, denies LOC. This happened 2 days ago c/o back pain, especially when she sits and when she slays down denies arm or leg weakness denies cp/sob, palpitations Patient believes she had htn as an outpatient. Objective Vitals Vital Signs Date Time Temp Pulse Resp B/P Pulse Ox O2 Delivery O2 Flow Rate FiO2 07/18/16 05:48 97.7 95 18 106/54 96 07/17/16 18:55 98.3 109 18 132/70 95 Result Diagram: 07/17/16 0626 Imaging Last Impressions Abdomen Ultrasound 06/06/16 0000 Signed Impressions: Service Date/Time: Monday, June 06, 2016 16:19 - CONCLUSION: 1. The study is limited secondary to combativeness and body habitus. 2. Mild hepatomegaly and hepatic steatosis. Jc Gunn MD Objective Remarks GENERAL: This is a well-nourished, well-developed patient, in no apparent distress. SKIN: No rashes, ecchymoses or lesions. Cool and dry. HEAD: Atraumatic. Normocephalic. No temporal or scalp tenderness. EYES: Pupils equal round and reactive. Extraocular motions intact. No scleral icterus. ENT: Nose without bleeding, purulent drainage or septal hematoma. Airway patent. NECK: Trachea midline. No JVD or lymphadenopathy. Supple. CARDIOVASCULAR: Regular rate and rhythm without murmurs, gallops, or rubs. RESPIRATORY: Clear to auscultation. Breath sounds equal bilaterally. No wheezes , rales, or rhonchi. GASTROINTESTINAL: Abdomen soft, non tender, nondistended. BS x4. No CVA tenderness. No pain with palpation. MUSCULOSKELETAL: Extremities without clubbing, cyanosis, or edema. No joint tenderness, effusion, or edema noted. No calf tenderness. There is some tenderness to palpation over spine mostly lumbar and thoracic and paraspinal muscles. NEUROLOGICAL: Awake and alert. Motor and sensory grossly within normal limits. Normal speech. Medications and IVs Current Medications Medications (Trade) Dose Ordered Sig/Twila Route Start Time Stop Time Status Last Admin (Milk Of Magnesia Liq) 30 ml DAILY PRN PO 05/29/16 16:15 (Mag-Al Plus Susp Liq) 30 ml Q6H PRN PO 05/29/16 16:15 (Ativan) 2 mg Q6H PRN PO 05/30/16 16:15 07/01/16 10:02 (Ativan Inj) 2 mg Q6H PRN IM 05/30/16 16:15 07/02/16 14:45 (Cogentin) 1 mg Q12HR PRN PO 05/30/16 12:45 06/06/16 22:52 (Cogentin Inj) 1 mg Q12HR PRN IM 05/30/16 12:45 06/11/16 09:07 (Haldol) 5 mg Q8H PRN PO 05/30/16 12:45 06/05/16 14:21 (Haldol Inj) 5 mg Q8H PRN IM 05/30/16 12:45 07/02/16 14:45 (Colace) 100 mg BID PO 05/30/16 21:00 07/18/16 08:17 (Norvasc) 5 mg DAILY PO 05/31/16 09:00 07/18/16 08:17 (Theragran) 1 tab DAILY PO 05/31/16 09:00 07/18/16 08:17 (Benadryl) 50 mg HS PRN PO 06/01/16 10:15 07/16/16 20:28 (Benadryl Inj) 50 mg HS PRN IM 06/01/16 10:15 06/23/16 22:56 (Flexeril) 5 mg Q12HR PRN PO 06/07/16 12:00 07/01/16 08:49 (Chapstick) 1 applic UNSCH PRN TOPICAL 06/11/16 16:00 06/21/16 00:51 (Haldol Lactate Liq) 10 mg TID PO 06/19/16 13:00 07/18/16 17:19 (Depakene Liq) 750 mg BID PO 06/28/16 21:00 07/18/16 08:17 (Clozaril) 50 mg DAILY PO 07/04/16 09:00 07/18/16 08:17 (Clozaril) 150 mg HS PO 07/10/16 21:00 07/17/16 20:32 (Pill Splitter) 1 ea UNSCH PRN OTHER 07/10/16 11:45 Urinary Catheter: No A/P Problem List: (1) Schizophrenia ICD Code: F20.9 Status: Acute Plan: Management as per psychiatry. Patient currently on clozapine, valproic acid, Haldol, Ativan, Cogentin (2) Hepatic steatosis ICD Code: K76.0 Status: Acute Plan: Patient had previous right flank pain which has improved. Ultrasound of the abdomen showed mild hepatomegaly and hepatic steatosis. To the patient of the long-term consequences of hepatic acidosis and that this could lead to cirrhosis of the liver. Advised weight loss and diet modification. Patient very interested in learning more about diet modification. I will consult dietitian to give diabetic education for weight loss. (3) HTN (hypertension) ICD Code: I10 Status: Chronic Plan: Patient currently on amlodipine 5 mg by mouth daily. Recently had a fall that patient does not know how it happened. Denies losing consciousness. I will obtain orthostatic blood pressure. (4) Tachycardia ICD Code: R00.0 Status: Acute Plan: Upon review of records, the patient has been tachycardic most of the time she has been here. I will obtain an EKG and depending on EKG results perhaps an echocardiogram. At this moment tachycardia could be worsened by increased pain secondary to fall. CBC shows hemoglobin of 12.7. (5) Fall ICD Code: W19.XXXA Status: Resolved Plan: Patient states she had a recent fall 2 days ago. Denies losing consciousness. I will check orthostatic blood pressure to rule out orthostatic hypotension. Pain control with tramadol. Will discontinue Tylenol given that patient has hepatic steatosis. (6) Back pain ICD Code: M54.9 Status: Acute Plan: Pain control with tramadol. Likely contributing to the tachycardia. Problem Qualifiers (1) Schizophrenia: Qualified Code: F20.1 - Disorganized schizophrenia (2) HTN (hypertension): Qualified Code: I10 - Essential hypertension Nicolas Silva MD July 18, 2016 18:42
[2016-07-18] MEDS: cloZAPine 100 MG TAB PO SCH (20:36)
[2016-07-19 06:04] VITALS: BP 137/62; PULSE 102; RESP 18; TEMP 98.1; O2SAT 94
[2016-07-19] MEDS: HALOPERIDOL LACTATE ORAL CONC 10 MG/5 ML CUP PO SCH ×3 (08:36→17:36)
[2016-07-19] MEDS: VALPROIC ACID SYRUP 250 MG/5 ML UDC PO SCH ×2 (08:36→21:08)
[2016-07-19] MEDS: cloZAPine 25 MG TAB PO SCH (08:37)
[2016-07-19] MEDS: DOCUSATE SODIUM 100 MG CAP PO SCH ×2 (08:37→21:08)
[2016-07-19] MEDS: amLODIPine BESYLATE 5 MG TAB PO SCH (08:37)
[2016-07-19] MEDS: MULTIVITAMIN TAB PO SCH (08:37)
--- NOTE | 2016-07-19 10:55 | HHI.PYPN ---
Subjective Remarks Patient seen and examined with counselor and nurse. Chart reviewed. Case discussed with nursing staff reports that the patient remains in good behavioral control. On my examination today, the patient is calm and pleasant. She does remain a little childlike. No audiovisual hallucinations. No SI/ HI. Hopeful for placement, and counselor informs me that a field support representative from [facility] is coming to visit with patient today. Denies side effects from medications. No physical complaints besides some mild back pain related to fall a few days ago. Review of Systems ROS Limitations: Poor Historian Except as stated in HPI: all other systems reviewed are Neg Objective Alert: Yes [place]: Person, Place Mood: Calm Affect: Euthymic Memory Intact: Comment (Fair) Hallucinations: Other (No AVH) Delusions: No Delusion Type: Other (No delusional material) Suicidal: Ideation (No SI) Homicidal: Ideation (No HI) Insight/Judgment Poor Remarks No motor abnormalities noted. Thought process fairly linear. Labs Labs reviewed. TFTs ordered by hospitalist reveal normal TSH but mildly decreased free T4. Vitals/IOs Vital Signs Date Time Temp Pulse Resp B/P Pulse Ox O2 Delivery O2 Flow Rate FiO2 07/19/16 06:04 98.1 102 18 137/62 94 Assessment & Plan Problem List: (1) Schizophrenia ICD Code: F20.9 Assessment & Plan Patient seems to be improving with current psychotropic regimen. Continue current psychotropic medications as ordered. Hospitalist brand sales consultant input noted and appreciated. Continue to monitor on the inpatient unit. Continue other medications and care as ordered. Justification for Cont. Inpt. High risk for decompensation in a less restrictive environment. Discharge [facility] Request HC Surrog/Guard Advoc?: Yes Problem Qualifiers (1) Schizophrenia: Qualified Code: F20.1 - Disorganized schizophrenia Cam Arshad MD July 19, 2016 10:55
[2016-07-19 12:10] LABS: FREE T3 2.43 PG/ML (2.18-3.98); FREE T4 0.75 NG/DL (0.76-1.46)
[2016-07-19 17:16] VITALS: BP 142/77; PULSE 109; RESP 20; TEMP 97.5; O2SAT 97
[2016-07-19] MEDS: cloZAPine 100 MG TAB PO SCH (21:08)
--- NOTE | 2016-07-19 21:56 | HHI.PR ---
Subjective Remarks Deferred entry - patient seen earlier at 4:45 pm Patient denies cp/sob, palpitation denies dizziness patient still tachycardic Objective Vitals Vital Signs Date Time Temp Pulse Resp B/P Pulse Ox O2 Delivery O2 Flow Rate FiO2 07/19/16 17:16 97.5 109 20 142/77 97 07/19/16 06:04 98.1 102 18 137/62 94 Result Diagram: 07/17/16 0626 Imaging Last Impressions Abdomen Ultrasound 06/06/16 0000 Signed Impressions: Service Date/Time: Monday, June 06, 2016 16:19 - CONCLUSION: 1. The study is limited secondary to combativeness and body habitus. 2. Mild hepatomegaly and hepatic steatosis. Jc Gunn MD Objective Remarks GENERAL: This is a well-nourished, well-developed patient, in no apparent distress. SKIN: No rashes, ecchymoses or lesions. Cool and dry. HEAD: Atraumatic. Normocephalic. No temporal or scalp tenderness. EYES: Pupils equal round and reactive. Extraocular motions intact. No scleral icterus. ENT: Nose without bleeding, purulent drainage or septal hematoma. Airway patent. NECK: Trachea midline. No JVD or lymphadenopathy. Supple. CARDIOVASCULAR: Regular rate and rhythm without murmurs, gallops, or rubs. RESPIRATORY: Clear to auscultation. Breath sounds equal bilaterally. No wheezes , rales, or rhonchi. GASTROINTESTINAL: Abdomen soft, non tender, nondistended. BS x4. No CVA tenderness. No pain with palpation. MUSCULOSKELETAL: Extremities without clubbing, cyanosis, or edema. No joint tenderness, effusion, or edema noted. No calf tenderness. There is some tenderness to palpation over spine mostly lumbar and thoracic and paraspinal muscles. NEUROLOGICAL: Awake and alert. Motor and sensory grossly within normal limits. Normal speech. Medications and IVs Current Medications Medications (Trade) Dose Ordered Sig/Twila Route Start Time Stop Time Status Last Admin (Milk Of Magnesia Liq) 30 ml DAILY PRN PO 05/29/16 16:15 (Mag-Al Plus Susp Liq) 30 ml Q6H PRN PO 05/29/16 16:15 (Ativan) 2 mg Q6H PRN PO 05/30/16 16:15 07/01/16 10:02 (Ativan Inj) 2 mg Q6H PRN IM 05/30/16 16:15 07/02/16 14:45 (Cogentin) 1 mg Q12HR PRN PO 05/30/16 12:45 06/06/16 22:52 (Cogentin Inj) 1 mg Q12HR PRN IM 05/30/16 12:45 06/11/16 09:07 (Haldol) 5 mg Q8H PRN PO 05/30/16 12:45 06/05/16 14:21 (Haldol Inj) 5 mg Q8H PRN IM 05/30/16 12:45 07/02/16 14:45 (Colace) 100 mg BID PO 05/30/16 21:00 07/19/16 21:08 (Norvasc) 5 mg DAILY PO 05/31/16 09:00 07/19/16 08:37 (Theragran) 1 tab DAILY PO 05/31/16 09:00 07/19/16 08:37 (Benadryl) 50 mg HS PRN PO 06/01/16 10:15 07/16/16 20:28 (Benadryl Inj) 50 mg HS PRN IM 06/01/16 10:15 06/23/16 22:56 (Flexeril) 5 mg Q12HR PRN PO 06/07/16 12:00 07/01/16 08:49 (Chapstick) 1 applic UNSCH PRN TOPICAL 06/11/16 16:00 06/21/16 00:51 (Haldol Lactate Liq) 10 mg TID PO 06/19/16 13:00 07/19/16 17:36 (Depakene Liq) 750 mg BID PO 06/28/16 21:00 07/19/16 21:08 (Clozaril) 50 mg DAILY PO 07/04/16 09:00 07/19/16 08:37 (Clozaril) 150 mg HS PO 07/10/16 21:00 07/19/16 21:08 (Pill Splitter) 1 ea UNSCH PRN OTHER 07/10/16 11:45 (Toradol) 10 mg Q6H PRN PO 07/18/16 18:30 07/23/16 18:29 A/P Problem List: (1) Schizophrenia ICD Code: F20.9 Status: Acute Plan: Management as per psychiatry. Patient currently on clozapine, valproic acid, Haldol, Ativan, Cogentin (2) Hepatic steatosis ICD Code: K76.0 Status: Acute Plan: Patient had previous right flank pain which has improved. Ultrasound of the abdomen showed mild hepatomegaly and hepatic steatosis. To the patient of the long-term consequences of hepatic acidosis and that this could lead to cirrhosis of the liver. Advised weight loss and diet modification. Patient very interested in learning more about diet modification. I will consult dietitian to give diabetic education for weight loss. (3) HTN (hypertension) ICD Code: I10 Status: Chronic Plan: Patient currently on amlodipine 5 mg by mouth daily. Recently had a fall that patient does not know how it happened. Denies losing consciousness. I will obtain orthostatic blood pressure. bp stable. (4) Tachycardia ICD Code: R00.0 Status: Acute Plan: Upon review of records, the patient has been tachycardic most of the time she has been here. EKG ordered however patient refused. Patient states that she will accept EKG if ordered again. I will reorder and will order 2 D echocardiogram. Check tsh, free t4 (5) Fall ICD Code: W19.XXXA Status: Resolved Plan: Patient states she had a recent fall 2 days ago. Denies losing consciousness. I will check orthostatic blood pressure to rule out orthostatic hypotension. Pain control with tramadol. Will discontinue Tylenol given that patient has hepatic steatosis. (6) Back pain ICD Code: M54.9 Status: Acute Plan: Pain control with tramadol. Likely contributing to the tachycardia. Problem Qualifiers (1) Schizophrenia: Qualified Code: F20.1 - Disorganized schizophrenia (2) HTN (hypertension): Qualified Code: I10 - Essential hypertension Nicolas Silva MD July 19, 2016 21:56
[2016-07-20 05:23] VITALS: BP 122/62; PULSE 103; RESP 18; TEMP 98.2; O2SAT 95
[2016-07-20] MEDS: HALOPERIDOL LACTATE ORAL CONC 10 MG/5 ML CUP PO SCH ×3 (08:30→18:00)
[2016-07-20] MEDS: cloZAPine 25 MG TAB PO SCH (08:30)
[2016-07-20] MEDS: MULTIVITAMIN TAB PO SCH (08:30)
[2016-07-20] MEDS: amLODIPine BESYLATE 5 MG TAB PO SCH (08:30)
[2016-07-20] MEDS: DOCUSATE SODIUM 100 MG CAP PO SCH ×2 (08:31→20:57)
[2016-07-20] MEDS: VALPROIC ACID SYRUP 250 MG/5 ML UDC PO SCH ×2 (08:31→20:57)
[2016-07-20] MEDS: CYCLOBENZAPRINE HCL 10 MG TAB PO PRN (09:21)
--- NOTE | 2016-07-20 13:17 | HHI.PYPN ---
Subjective Remarks Patient seen and examined with counselor and nurse. Chart reviewed. Case discussed with nursing staff reports that the patient is doing very well on the unit. She is reportedly asking for medications and initiating self-care. Counselor informs me that a sales development representative from [facility] was out to evaluate the patient yesterday but felt the patient would be a poor fit because of the facility's large size. On my examination today, the patient is calm and pleasant. Affect is bright and euthymic. She does not verbalize any psychotic material. She denies side effects from medications. She remains agreeable to placement. No physical complaints. Review of Systems ROS Limitations: Poor Historian Except as stated in HPI: all other systems reviewed are Neg Objective Alert: Yes [place]: Person, Place Mood: Calm Affect: Euthymic Memory Intact: Comment (remains fair) Hallucinations: Other (no audiovisual hallucinations) Delusions: No Delusion Type: Other (no delusions) Suicidal: Ideation (No SI) Homicidal: Ideation (No HI) Insight/Judgment Poor Remarks No motor abnormalities noted. Labs Labs reviewed. No new labs. Vitals/IOs Vital Signs Date Time Temp Pulse Resp B/P Pulse Ox O2 Delivery O2 Flow Rate FiO2 07/20/16 05:23 98.2 103 18 122/62 95 Assessment & Plan Problem List: (1) Schizophrenia ICD Code: F20.9 Assessment & Plan Continue current psychotropics as ordered. Continue to monitor on the inpatient unit. Continue other medications and care as ordered. Justification for Cont. Inpt. High risk for decompensation in a less restrictive environment. Discharge Planning Counselor will continue to try to identify an assisted living facility to which the patient can go. States psychiatric hospitalization represents an alternative. 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
[2016-07-20 14:29] LABS: HEMOGLOBIN A1a 1.3 %; HEMOGLOBIN A1b 1.2 %; HEMOGLOBIN Ao 83.3 %; HEMOGLOBIN F 2.2 %; HEMOGLOBIN P3 3.7 %
[2016-07-20 15:15] VITALS: BP 118/86; PULSE 121; RESP 18; TEMP 97.3; O2SAT 100
--- NOTE | 2016-07-20 17:05 | EC ---
Study Study Date:07/20/2016 STUDY CONCLUSIONS SUMMARY - Left ventricle: The cavity size was normal. Wall thickness was normal. Systolic function was vigorous. The estimated ejection fraction was in the range of 65% to 70%. Wall motion was normal; there were no regional wall motion abnormalities. - Aortic valve: Valve area: 1.63cm^2(VTI). Valve area: 1.51cm^2 (Vmax). If LV function is below 40, please consider prescribing an ACEI or ARB or document rationale for non-use. PROCEDURE DATA STUDY STATUS: Elective. Procedure: Transthoracic echocardiography. Image quality was good. Scanning was performed from the parasternal, apical, and subcostal acoustic windows. Study completion: The patient tolerated the procedure well. Transthoracic echocardiography. M-mode, complete 2D, complete spectral Doppler, and color Doppler. Weight: Weight: 221.5lb. Patient status: Inpatient. CARDIAC ANATOMY LEFT VENTRICLE: The cavity size was normal. Wall thickness was normal. Systolic function was vigorous. The estimated ejection fraction was in the range of 65% to 70%. Wall motion was normal; there were no regional wall motion abnormalities. AORTIC VALVE: Trileaflet; normal thickness leaflets. Doppler: Transvalvular velocity was within the normal range. There was no stenosis. No regurgitation. Valve area: 1.63cm^2(VTI). Valve area: 1.51cm^2 (Vmax). Mean gradient: 7mm Hg (S). Peak gradient: 12mm Hg (S). AORTA: Aortic root: The aortic root was normal in size. MITRAL VALVE: Structurally normal valve. Doppler: Transvalvular velocity was within the normal range. There was no evidence for stenosis. No regurgitation. Peak gradient: 5mm Hg (D). LEFT ATRIUM: The atrium was normal in size. RIGHT VENTRICLE: The cavity size was normal. Wall thickness was normal. PULMONIC VALVE: Doppler: Transvalvular velocity was within the normal range. There was no evidence for stenosis. No regurgitation. TRICUSPID VALVE: Structurally normal valve. Doppler: Transvalvular velocity was within the normal range. Trace regurgitation. PULMONARY ARTERY: The main pulmonary artery was normal-sized. Systolic pressure was within the normal range. RIGHT ATRIUM: The atrium was normal in size. PERICARDIUM: There was no pericardial effusion. SYSTEMIC VEINS: Inferior vena cava: The vessel was normal in size. Patient weight: 221.5lb _Ejection fraction:_ 65-75% _Fractional shortening:_ 32% up to 5Kg 5-11.5Kg 11.6-22.9Kg 23-45Kg 45-57Kg Aortic Root 7-13 <17 13-22 17-27 17-27 LA diam 6-13 <23 24-38 33-47 37-40 RVID 10-17 7-15 7-15 7-18 8-17 LVIDd 12-22 <32 24-38 33-47 37-40 LVPW 2-4 3-6 5-7 6-8 7-8 IVS 2-4 3-6 5-7 6-8 7-8 BASIC MEASUREMENTS ADULT NORMAL Left ventricle LV internal dimension, ED, chordal level, *41.5 mm 43-52 PLAX LV internal dimension, ES, chordal level, 29.6 mm 23-38 PLAX Fractional shortening, chordal level, PLAX *29 % >29 LV posterior wall thickness, ED 8.1 mm IVS/LVPW ratio, ED 0.99 <1.3 Ventricular septum Septal thickness, ED 8.02 mm Aortic valve Leaflet separation *14 mm 15-26 Aorta Root diameter, ED 23 mm Left atrium Anterior-posterior dimension 36 mm BASIC MEASUREMENTS ADULT NORMAL Aortic valve Leaflet separation *14 mm 15-26 DOPPLER MEASUREMENTS ADULT NORMAL Aortic valve Peak velocity, S 170 cm/s Mean velocity, S 122 cm/s VTI, S 24.5 cm Mean gradient, S 7 mm Hg Peak gradient, S 12 mm Hg Valve area, VTI 1.63 cm^2 Valve area, Vmax 1.51 cm^2 Mitral valve Peak E-wave velocity 108 cm/s Peak A-wave velocity 99.7 cm/s Deceleration time 229 ms 150-230 Peak gradient, D 5 mm Hg Peak E/A ratio 1.1 Pulmonic valve Peak velocity, S 111 cm/s LEGEND: Mean values are shown as u=mean value. Asterisk (*) briggs values outside specified normal range. Prepared and signed by Yohan Delacruz [id number]
--- NOTE | 2016-07-20 17:12 | EKG ---
Date Performed: 07/19/2016 Time Performed: 22:10:00 PTAGE: 46 years EKG: SINUS TACHYCARDIA NONSPECIFIC T-WAVE ABNORMALITY ABNORMAL RHYTHM ECG NO PREVIOUS TRACING DOCTOR: Stu Anguiano Interpretating Date/Time 07/20/2016 17:11:09
--- NOTE | 2016-07-20 18:13 | HHI.PR ---
Subjective Remarks fu for tachycardia, htn, back pain Patient denies palpitations , dizziness, cp, sob Objective Vitals Vital Signs Date Time Temp Pulse Resp B/P Pulse Ox O2 Delivery O2 Flow Rate FiO2 07/20/16 15:15 97.3 121 18 118/86 100 07/20/16 05:23 98.2 103 18 122/62 95 Result Diagram: 07/17/16 0626 Objective Remarks GENERAL: This is a well-nourished, well-developed patient, in no apparent distress. SKIN: No rashes, ecchymoses or lesions. Cool and dry. HEAD: Atraumatic. Normocephalic. No temporal or scalp tenderness. EYES: Pupils equal round and reactive. Extraocular motions intact. No scleral icterus. ENT: Nose without bleeding, purulent drainage or septal hematoma. Airway patent. NECK: Trachea midline. No JVD or lymphadenopathy. Supple. CARDIOVASCULAR: Regular rate and rhythm without murmurs, gallops, or rubs. RESPIRATORY: Clear to auscultation. Breath sounds equal bilaterally. No wheezes , rales, or rhonchi. GASTROINTESTINAL: Abdomen soft, non tender, nondistended. BS x4. No CVA tenderness. No pain with palpation. MUSCULOSKELETAL: Extremities without clubbing, cyanosis, or edema. No joint tenderness, effusion, or edema noted. No calf tenderness. There is some tenderness to palpation over spine mostly lumbar and thoracic and paraspinal muscles. NEUROLOGICAL: Awake and alert. Motor and sensory grossly within normal limits. Normal speech. Medications and IVs Current Medications Medications (Trade) Dose Ordered Sig/Twila Route Start Time Stop Time Status Last Admin (Milk Of Magnesia Liq) 30 ml DAILY PRN PO 05/29/16 16:15 (Mag-Al Plus Susp Liq) 30 ml Q6H PRN PO 05/29/16 16:15 (Ativan) 2 mg Q6H PRN PO 05/30/16 16:15 07/01/16 10:02 (Ativan Inj) 2 mg Q6H PRN IM 05/30/16 16:15 07/02/16 14:45 (Cogentin) 1 mg Q12HR PRN PO 05/30/16 12:45 06/06/16 22:52 (Cogentin Inj) 1 mg Q12HR PRN IM 05/30/16 12:45 06/11/16 09:07 (Haldol) 5 mg Q8H PRN PO 05/30/16 12:45 06/05/16 14:21 (Haldol Inj) 5 mg Q8H PRN IM 05/30/16 12:45 07/02/16 14:45 (Colace) 100 mg BID PO 05/30/16 21:00 07/20/16 08:31 (Norvasc) 5 mg DAILY PO 05/31/16 09:00 07/20/16 08:30 (Theragran) 1 tab DAILY PO 05/31/16 09:00 07/20/16 08:30 (Benadryl) 50 mg HS PRN PO 06/01/16 10:15 07/16/16 20:28 (Benadryl Inj) 50 mg HS PRN IM 06/01/16 10:15 06/23/16 22:56 (Flexeril) 5 mg Q12HR PRN PO 06/07/16 12:00 07/20/16 09:21 (Chapstick) 1 applic UNSCH PRN TOPICAL 06/11/16 16:00 06/21/16 00:51 (Haldol Lactate Liq) 10 mg TID PO 06/19/16 13:00 07/20/16 13:00 (Depakene Liq) 750 mg BID PO 06/28/16 21:00 07/20/16 08:31 (Clozaril) 50 mg DAILY PO 07/04/16 09:00 07/20/16 08:30 (Clozaril) 150 mg HS PO 07/10/16 21:00 07/19/16 21:08 (Pill Splitter) 1 ea UNSCH PRN OTHER 07/10/16 11:45 (Toradol) 10 mg Q6H PRN PO 07/18/16 18:30 07/23/16 18:29 A/P Problem List: (1) Schizophrenia ICD Code: F20.9 Status: Acute Plan: Management as per psychiatry. Patient currently on clozapine, valproic acid, Haldol, Ativan, Cogentin (2) Hepatic steatosis ICD Code: K76.0 Status: Acute Plan: Patient had previous right flank pain which has improved. Ultrasound of the abdomen showed mild hepatomegaly and hepatic steatosis. To the patient of the long-term consequences of hepatic acidosis and that this could lead to cirrhosis of the liver. Advised weight loss and diet modification. Patient very interested in learning more about diet modification. dietitian consulted for weight loss education. (3) HTN (hypertension) ICD Code: I10 Status: Chronic Plan: Patient currently on amlodipine 5 mg by mouth daily. Recently had a fall that patient does not know how it happened. Denies losing consciousness. I will obtain orthostatic blood pressure. bp stable. (4) Tachycardia ICD Code: R00.0 Status: Acute Plan: Upon review of records, the patient has been tachycardic most of the time she has been here. EKG shows sinus tachycardia with nonspecific ST changes. Will order 2 D echocardiogram Will DC amlodipine and start a beta paras. (5) Fall ICD Code: W19.XXXA Status: Resolved Plan: Patient states she had a recent fall 2 days ago. Denies losing consciousness. I will check orthostatic blood pressure to rule out orthostatic hypotension. Pain control with tramadol. Will discontinue Tylenol given that patient has hepatic steatosis. (6) Back pain ICD Code: M54.9 Status: Resolved Plan: Patient states that is much better. She has not requested Toradol at all as per review of EMR. Problem Qualifiers (1) Schizophrenia: Qualified Code: F20.1 - Disorganized schizophrenia (2) HTN (hypertension): Qualified Code: I10 - Essential hypertension (3) Back pain: Qualified Code: M54.5 - Low back pain without sciatica, unspecified back pain laterality, unspecified chronicity Nicolas Silva MD July 20, 2016 18:12
[2016-07-20] MEDS: cloZAPine 100 MG TAB PO SCH (20:57)
[2016-07-21 06:00] VITALS: BP 129/60; PULSE 100; RESP 18; TEMP 97.7; O2SAT 96
[2016-07-21] MEDS: HALOPERIDOL LACTATE ORAL CONC 10 MG/5 ML CUP PO SCH ×3 (09:32→18:25)
[2016-07-21] MEDS: METOPROLOL TARTRATE 25 MG TAB PO SCH ×2 (09:33→21:21)
[2016-07-21] MEDS: DOCUSATE SODIUM 100 MG CAP PO SCH ×2 (09:33→21:20)
[2016-07-21] MEDS: MULTIVITAMIN TAB PO SCH (09:33)
[2016-07-21] MEDS: cloZAPine 25 MG TAB PO SCH (09:33)
[2016-07-21] MEDS: VALPROIC ACID SYRUP 250 MG/5 ML UDC PO SCH ×2 (09:33→21:20)
--- NOTE | 2016-07-21 12:07 | HHI.PYPN ---
Subjective Remarks Patient seen and examined with counselor and nurse. Chart reviewed. Case discussed with nursing staff who reports patient continues to behave well on the unit. On my examination today, the patient is in good spirits. She remains somewhat childlike. No ongoing psychotic symptoms. Affect is euthymic. We discussed discharge planning, and the patient is agreeable to the counselor initiating referrals to smaller assisted living facilities in our area. No reported side effects from medications. No physical complaints. Review of Systems Except as stated in HPI: all other systems reviewed are Neg Objective Alert: Yes [place]: Person, Place Mood: Calm Affect: Euthymic (remains euthymic, somewhat childlike) Memory Intact: Comment (fair) Hallucinations: Other (no AVH) Delusions: No Delusion Type: Other (no delusions) Suicidal: Ideation (No SI) Homicidal: Ideation (No HI) Insight/Judgment Poor Remarks No motoric abnormalities noted Labs Laboratories reviewed. Hemoglobin A1c is within normal limits. Echocardiogram results reviewed. No wall motion abnormalities and EF is within normal limits. Vitals/IOs Vital Signs Date Time Temp Pulse Resp B/P Pulse Ox O2 Delivery O2 Flow Rate FiO2 07/21/16 06:00 97.7 100 18 129/60 96 Assessment & Plan Problem List: (1) Schizophrenia ICD Code: F20.9 Assessment & Plan Patient seems to be doing well from a psychiatric standpoint. Continue current psychiatric medications as ordered. I note that the hospitalist has added metoprolol for patient's tachycardia. Continue to monitor on the inpatient unit. Continue other medications and care as ordered. Justification for Cont. Inpt. High risk for decompensation in a less restrictive environment. Discharge Planning Counselor plans to initiate 3 additional assisted living referrals today. Request HC Surrog/Guard Advoc?: Yes Problem Qualifiers (1) Schizophrenia: Qualified Code: F20.1 - Disorganized schizophrenia Cam Arshad MD July 21, 2016 12:07
[2016-07-21 15:30] VITALS: BP_SYST 121; BP_SYST 140; BP_DIAS 59; BP_DIAS 65; PULSE 101; PULSE 102; RESP 18; TEMP 98.3; O2SAT 96
[2016-07-21] MEDS: cloZAPine 100 MG TAB PO SCH (21:00)
[2016-07-21] MEDS: CYCLOBENZAPRINE HCL 10 MG TAB PO PRN (21:40)
--- NOTE | 2016-07-21 22:15 | HHI.PR ---
Subjective Remarks deferred entry - patient seen at 7:05 pm Patient denies cp/sob denies palpitations denies dizziness still c/o back pain Objective Vitals Vital Signs Date Time Temp Pulse Resp B/P Pulse Ox O2 Delivery O2 Flow Rate FiO2 07/21/16 15:30 102 121/59 07/21/16 15:30 98.3 101 18 140/65 96 07/21/16 06:00 97.7 100 18 129/60 96 Result Diagram: 07/17/16 0626 Objective Remarks GENERAL: This is a well-nourished, well-developed patient, in no apparent distress. SKIN: No rashes, ecchymoses or lesions. Cool and dry. HEAD: Atraumatic. Normocephalic. No temporal or scalp tenderness. EYES: Pupils equal round and reactive. Extraocular motions intact. No scleral icterus. ENT: Nose without bleeding, purulent drainage or septal hematoma. Airway patent. NECK: Trachea midline. No JVD or lymphadenopathy. Supple. CARDIOVASCULAR: Regular rate and rhythm without murmurs, gallops, or rubs. RESPIRATORY: Clear to auscultation. Breath sounds equal bilaterally. No wheezes , rales, or rhonchi. GASTROINTESTINAL: Abdomen soft, non tender, nondistended. BS x4. No CVA tenderness. No pain with palpation. MUSCULOSKELETAL: Extremities without clubbing, cyanosis, or edema. No joint tenderness, effusion, or edema noted. No calf tenderness. There is some tenderness to palpation over spine mostly lumbar and thoracic and paraspinal muscles. NEUROLOGICAL: Awake and alert. Motor and sensory grossly within normal limits. Normal speech. Medications and IVs Current Medications Medications (Trade) Dose Ordered Sig/Twila Route Start Time Stop Time Status Last Admin (Milk Of Magnesia Liq) 30 ml DAILY PRN PO 05/29/16 16:15 (Mag-Al Plus Susp Liq) 30 ml Q6H PRN PO 05/29/16 16:15 (Ativan) 2 mg Q6H PRN PO 05/30/16 16:15 07/01/16 10:02 (Ativan Inj) 2 mg Q6H PRN IM 05/30/16 16:15 07/02/16 14:45 (Cogentin) 1 mg Q12HR PRN PO 05/30/16 12:45 06/06/16 22:52 (Cogentin Inj) 1 mg Q12HR PRN IM 05/30/16 12:45 06/11/16 09:07 (Haldol) 5 mg Q8H PRN PO 05/30/16 12:45 06/05/16 14:21 (Haldol Inj) 5 mg Q8H PRN IM 05/30/16 12:45 07/02/16 14:45 (Colace) 100 mg BID PO 05/30/16 21:00 07/21/16 21:20 (Theragran) 1 tab DAILY PO 05/31/16 09:00 07/21/16 09:33 (Benadryl) 50 mg HS PRN PO 06/01/16 10:15 07/16/16 20:28 (Benadryl Inj) 50 mg HS PRN IM 06/01/16 10:15 06/23/16 22:56 (Flexeril) 5 mg Q12HR PRN PO 06/07/16 12:00 07/21/16 21:40 (Chapstick) 1 applic UNSCH PRN TOPICAL 06/11/16 16:00 06/21/16 00:51 (Haldol Lactate Liq) 10 mg TID PO 06/19/16 13:00 07/21/16 18:25 (Depakene Liq) 750 mg BID PO 06/28/16 21:00 07/21/16 21:20 (Clozaril) 50 mg DAILY PO 07/04/16 09:00 07/21/16 09:33 (Clozaril) 150 mg HS PO 07/10/16 21:00 07/21/16 21:00 (Pill Splitter) 1 ea UNSCH PRN OTHER 07/10/16 11:45 (Toradol) 10 mg Q6H PRN PO 07/18/16 18:30 07/23/16 18:29 (Lopressor) 12.5 mg Q12HR PO 07/21/16 09:00 07/21/16 21:21 A/P Problem List: (1) Schizophrenia ICD Code: F20.9 Status: Acute Plan: Management as per psychiatry. Patient currently on clozapine, valproic acid, Haldol, Ativan, Cogentin (2) Hepatic steatosis ICD Code: K76.0 Status: Acute Plan: Patient had previous right flank pain which has improved. Ultrasound of the abdomen showed mild hepatomegaly and hepatic steatosis. To the patient of the long-term consequences of hepatic acidosis and that this could lead to cirrhosis of the liver. Advised weight loss and diet modification. Patient very interested in learning more about diet modification. dietitian consulted for weight loss education. (3) HTN (hypertension) ICD Code: I10 Status: Chronic Plan: Patient previously on amlodipine 5 mg daily. discontinued amlodipine and started metoprolol 12.5 mg po q 12 hrs. Bp stable. (4) Tachycardia ICD Code: R00.0 Status: Acute Plan: Upon review of records, the patient has been tachycardic most of the time she has been here. EKG shows sinus tachycardia with nonspecific ST changes. Continue beta paras Endocardium shows EF of 65-70% and no wall motion abnormality. (5) Fall ICD Code: W19.XXXA Status: Resolved Plan: Patient states she had a recent fall 2 days ago. Denies losing consciousness. Pain control with tramadol. Will discontinue Tylenol given that patient has hepatic steatosis. Patient was orthostatic on today's vital signs, however denies any dizziness or symptoms. Instructed to stand up from a sitting or supine position very slowly. (6) Back pain ICD Code: M54.9 Status: Resolved Plan: Patient states that is much better. She has not requested Toradol at all as per review of EMR. Assessment and Plan I will sign off. Reconsult as needed. Problem Qualifiers (1) Schizophrenia: Qualified Code: F20.1 - Disorganized schizophrenia (2) HTN (hypertension): Qualified Code: I10 - Essential hypertension (3) Back pain: Qualified Code: M54.5 - Low back pain without sciatica, unspecified back pain laterality, unspecified chronicity Nicolas Silva MD July 21, 2016 22:15
[2016-07-22 06:10] VITALS: BP 115/69; PULSE 89; RESP 16; TEMP 98.2; O2SAT 97
[2016-07-22] MEDS: HALOPERIDOL LACTATE ORAL CONC 10 MG/5 ML CUP PO SCH ×3 (08:52→18:00)
[2016-07-22] MEDS: METOPROLOL TARTRATE 25 MG TAB PO SCH ×2 (08:52→21:07)
[2016-07-22] MEDS: MULTIVITAMIN TAB PO SCH (08:52)
[2016-07-22] MEDS: DOCUSATE SODIUM 100 MG CAP PO SCH ×2 (08:52→21:07)
[2016-07-22] MEDS: cloZAPine 25 MG TAB PO SCH (08:52)
[2016-07-22] MEDS: VALPROIC ACID SYRUP 250 MG/5 ML UDC PO SCH ×2 (08:52→21:08)
--- NOTE | 2016-07-22 14:13 | HHI.PYPN ---
Subjective Remarks Pt seen and discussed with staff. Some delusional thinking persists and pt gets agitated on unit believing that someone is giving away free ice cream, but calms when redirected by staff. No medication side effects. No SI/HI Objective Alert: Yes [place]: Person, Place Mood: Calm Affect: Euthymic (remains euthymic, somewhat childlike) Memory Intact: Comment (fair) Hallucinations: Other (no AVH) Delusions: No Delusion Type: Other (no delusions) Suicidal: Ideation (No SI) Homicidal: Ideation (No HI) Insight/Judgment poor Vitals/IOs Vital Signs Date Time Temp Pulse Resp B/P Pulse Ox O2 Delivery O2 Flow Rate FiO2 07/22/16 06:10 98.2 89 16 115/69 97 Assessment & Plan Problem List: (1) Schizophrenia ICD Code: F20.9 Assessment & Plan Continue current tx plan. Estimated LOS: days Justification for Cont. Inpt. risk of decompensation Request HC Surrog/Guard Advoc?: Yes Problem Qualifiers (1) Schizophrenia: Qualified Code: F20.1 - Disorganized schizophrenia Leilani Fung MD July 22, 2016 14:13
[2016-07-22 17:16] VITALS: BP 123/77; PULSE 86; RESP 18; TEMP 98.3; O2SAT 96
[2016-07-22] MEDS: cloZAPine 100 MG TAB PO SCH (21:07)
[2016-07-23 06:35] VITALS: BP 134/66; PULSE 85; RESP 18; TEMP 97.2; O2SAT 97
[2016-07-23] MEDS: MULTIVITAMIN TAB PO SCH (08:44)
[2016-07-23] MEDS: VALPROIC ACID SYRUP 250 MG/5 ML UDC PO SCH ×2 (08:44→21:11)
[2016-07-23] MEDS: cloZAPine 25 MG TAB PO SCH (08:44)
[2016-07-23] MEDS: DOCUSATE SODIUM 100 MG CAP PO SCH ×2 (08:44→21:11)
[2016-07-23] MEDS: HALOPERIDOL LACTATE ORAL CONC 10 MG/5 ML CUP PO SCH ×3 (08:44→17:46)
[2016-07-23] MEDS: METOPROLOL TARTRATE 25 MG TAB PO SCH ×2 (08:45→21:11)
--- NOTE | 2016-07-23 11:20 | HHI.PYPN ---
Subjective Remarks Pt seen and discussed with staff. She had a good visit with family yesterday. She has been calm and cooperative today. Compliant with medications. No SI/HI Objective Alert: Yes [place]: Person, Place Mood: Calm Affect: Euthymic, Other (childlike) Memory Intact: Comment (no gross deficits) Hallucinations: Other (no AVH) Delusions: No Delusion Type: Other (no delusions) Suicidal: Ideation (No SI) Homicidal: Ideation (No HI) Insight/Judgment poor Vitals/IOs Vital Signs Date Time Temp Pulse Resp B/P Pulse Ox O2 Delivery O2 Flow Rate FiO2 07/23/16 06:35 97.2 85 18 134/66 97 Assessment & Plan Problem List: (1) Schizophrenia ICD Code: F20.9 Assessment & Plan Continue current tx plan. Estimated LOS: days Justification for Cont. Inpt. risk of decompensation Request HC Surrog/Guard Advoc?: Yes Problem Qualifiers (1) Schizophrenia: Qualified Code: F20.1 - Disorganized schizophrenia Leilani Fung MD July 23, 2016 11:20
[2016-07-23 18:13] VITALS: BP 119/59; PULSE 90; RESP 18; TEMP 97.9; O2SAT 97
[2016-07-23] MEDS: cloZAPine 100 MG TAB PO SCH (21:11)
[2016-07-24 05:44] VITALS: BP 128/59; PULSE 86; RESP 18; TEMP 97.9; O2SAT 95
[2016-07-24 07:44] LABS: AUTOMATED NEUTROPHIL # 2.6 TH/MM3 (1.8-7.7); BASOPHIL # 0.1 TH/MM3 (0-0.2); BASOPHIL % 1.3 % (0.0-2.0); EOSINOPHIL % 0.1 % (0.0-4.0); HEMATOCRIT 39.5 % (35.0-46.0); HEMO FLAGS DIFF FINAL; LYMPH % 40.5 % (9.0-44.0); LYMPHOCYTE # 2.5 TH/MM3 (1.0-4.8); MEAN CELL VOLUME 88.2 FL (80.0-100.0); NEUT % 43.1 % (16.0-70.0); PLATELET COUNT 257 TH/MM3 (150-450); RED BLOOD COUNT 4.48 MIL/MM3 (4.00-5.30); WHITE BLOOD COUNT 6.1 TH/MM3 (4.0-11.0)
[2016-07-24] MEDS: DOCUSATE SODIUM 100 MG CAP PO SCH ×2 (08:46→20:07)
[2016-07-24] MEDS: HALOPERIDOL LACTATE ORAL CONC 10 MG/5 ML CUP PO SCH ×3 (08:46→17:36)
[2016-07-24] MEDS: MULTIVITAMIN TAB PO SCH (08:46)
[2016-07-24] MEDS: VALPROIC ACID SYRUP 250 MG/5 ML UDC PO SCH ×2 (08:46→20:07)
[2016-07-24] MEDS: cloZAPine 25 MG TAB PO SCH (08:46)
[2016-07-24] MEDS: METOPROLOL TARTRATE 25 MG TAB PO SCH ×2 (08:47→20:09)
--- NOTE | 2016-07-24 10:10 | HHI.PYPN ---
Subjective Remarks Patient seen and examined with counselor and nurse. Chart reviewed. Case discussed with nursing staff who reports the patient has been no behavioral problem. On my examination today, the patient is in good spirits. No positive psychotic symptoms. Denies any audiovisual hallucinations. No suicidal ideation. Denies side effects from medications. No physical complaints besides some mild left lateral thigh pain, although she cannot recall any trauma or overuse. Review of Systems ROS Limitations: Poor Historian Except as stated in HPI: all other systems reviewed are Neg Objective Alert: Yes [place]: Person, Place Mood: Calm Affect: Euthymic (remains euthymic and somewhat childlike) Memory Intact: Comment (no gross deficits) Hallucinations: Other (no audiovisual hallucinations) Delusions: No Delusion Type: Other (no josue delusional material) Suicidal: Ideation (no suicidal ideation) Homicidal: Ideation (no homicidal ideation) Insight/Judgment Poor Remarks No motor abnormalities noted. Patient does have a somewhat antalgic gait. Labs Test 07/24/16 07:08 White Blood Count 6.1 TH/MM3 Red Blood Count 4.48 MIL/MM3 Hemoglobin 13.4 GM/DL Hematocrit 39.5 % Mean Corpuscular Volume 88.2 FL Mean Corpuscular Hemoglobin 30.0 PG Mean Corpuscular Hemoglobin 34.0 % Concent Red Cell Distribution Width 16.0 % Platelet Count 257 TH/MM3 Mean Platelet Volume 9.7 FL Neutrophils (%) (Auto) 43.1 % Lymphocytes (%) (Auto) 40.5 % Monocytes (%) (Auto) 15.0 % Eosinophils (%) (Auto) 0.1 % Basophils (%) (Auto) 1.3 % Neutrophils # (Auto) 2.6 TH/MM3 Lymphocytes # (Auto) 2.5 TH/MM3 Monocytes # (Auto) 0.9 TH/MM3 Eosinophils # (Auto) 0.0 TH/MM3 Basophils # (Auto) 0.1 TH/MM3 CBC Comment DIFF FINAL Differential Comment Labs reviewed. No leukocytosis. ANC remains adequate for clozapine therapy. Vitals/IOs Vital Signs Date Time Temp Pulse Resp B/P Pulse Ox O2 Delivery O2 Flow Rate FiO2 07/24/16 05:44 97.9 86 18 128/59 95 Assessment & Plan Problem List: (1) Schizophrenia ICD Code: F20.9 Assessment & Plan Continue current psychiatric medications as ordered. Symptomatic treatment for left thigh pain for now; we will monitor this. Consider imaging or consult to the hospitalist should this worsen or persist. Continue to monitor on the inpatient unit. Continue other medications and care as ordered. Justification for Cont. Inpt. High risk for decompensation in a less restrictive environment. Discharge Planning Placement versus [facility] referral. Request HC Surrog/Guard Advoc?: Yes Problem Qualifiers (1) Schizophrenia: Qualified Code: F20.1 - Disorganized schizophrenia Cam Arshad MD July 24, 2016 10:10
[2016-07-24] MEDS ORDERED: IBUPROFEN 600 MG TAB PO PRN (16:00)
[2016-07-24 17:11] VITALS: BP 115/56; PULSE 85; RESP 18; TEMP 98.2; O2SAT 95
[2016-07-24] MEDS: cloZAPine 100 MG TAB PO SCH (20:08)
[2016-07-25 06:01] VITALS: BP 122/58; PULSE 80; RESP 17; TEMP 97.3; O2SAT 96
[2016-07-25] MEDS: MULTIVITAMIN TAB PO SCH (09:00)
[2016-07-25] MEDS: HALOPERIDOL LACTATE ORAL CONC 10 MG/5 ML CUP PO SCH ×2 (09:00→12:19)
[2016-07-25] MEDS: VALPROIC ACID SYRUP 250 MG/5 ML UDC PO SCH (09:00)
[2016-07-25] MEDS: METOPROLOL TARTRATE 25 MG TAB PO SCH (09:24)
[2016-07-25] MEDS: cloZAPine 25 MG TAB PO SCH (09:24)
[2016-07-25] MEDS: DOCUSATE SODIUM 100 MG CAP PO SCH (09:25)
[2016-07-25] MEDS ORDERED: DOCU1CAP39 PO (12:10)
[2016-07-25] MEDS ORDERED: CLOZ25 PO (12:10)
[2016-07-25] MEDS ORDERED: METO25TA3 PO (12:10)
[2016-07-25] MEDS ORDERED: Valproic Acid Liq PO (12:10)
[2016-07-25] MEDS ORDERED: CLOZ100 PO (12:10)
[2016-07-25] MEDS ORDERED: HALO2S PO (12:10)
--- NOTE | 2016-07-25 12:11 | HHI.DS ---
Psychiatry Discharge Summary Inpatient Psychiatric care?: Yes Advance Directive: No Reason Not Provided: DENIES DIRECTIVES Mental Health AdvanceDirective: No Health Care Proxy: No Admission Admission Date May 29, 2016 at 16:07 Admission Diagnosis: (1) Schizophrenia ICD Code: F20.9 Brief History Ms. Dior is a 57-year-old female with a history of schizophrenia who was brought into the ED by caregivers from her correction. Patient had apparently been having issues with severe agitation at the correction and was extremely agitated in the ED requiring multiple PRNs. There may have been some degree of medication nonadherence. Patient was placed under a [place] act by ED provider. Hope had been to stabilize the patient's condition in the ED to allow her to return to her facility, but unfortunately facility declined to accept the patient back. Patient is unable to care for herself and remains quite agitated and therefore has been admitted to the inpatient psychiatric unit. Reviewing the electronic medical record, it appears this is patient's first visit to [facility]. Patient seen and examined with nurse. Chart reviewed. Case discussed with nursing staff. Prior to my arrival on the unit, the patient had grown extremely agitated again. Her behavior has apparently been very disorganized, for example urinating in the corner of her room. I ordered her medicated with Haldol 10 mg, Ativan 2 mg and Benadryl 50 mg IM stat. Upon my arrival on the unit a little while later, the patient has calmed significantly. She presents as quite childlike. When I ask why she has come into the hospital, she says "I' m not exactly sure." Her thought process is fairly disorganized. She denies any side effects from her PRNs. She denies any AVH but appears a little internally preoccupied. She denies any SI or HI. I do note there is a puddle of urine on the floor. She appears extremely disheveled and her room is in general disarray. Psychiatric interview is limited because of severity of patient's psychiatric symptoms. I obtained collateral information from patient's mother and stepfather at [phone]. They note that the patient has a long history of schizophrenia, diagnosed in adolescence, and has had multiple admissions to the [facility]. She has no history of suicide attempts. Her biological mother committed herself to the [facility] and likely had schizophrenia. Patient had normal pre-morbid development and IQ. Step-mother notes that she had no real prior issue with violence but the last 3 placements she had, she lost secondary to aggressive behavior. She notes patient does well with the clozapine but has had issues with non-adherence in the past. I am unable to obtain any past psychiatric, family, chemical dependency or social history from the patient because of her degree of psychiatric impairment at present. Today on psychotic evaluation patient is found in her room in the psychiatric unit, she reports feeling better, she reports good mood, patient is unable to elaborate about the circumstances that brought her to the hospital. She states that she was brought to the hospital because she was no doing well. She denies depressive symptoms, she denies suicidal and homicidal ideation, she denies visual and auditory hallucinations. Patient is fully oriented 3, with very concrete thought process and limited cognition. Tobacco Use In Past 30 Days: Cognitive Impairment Alcohol Use: Never Hospital Course The patient was admitted to a locked, inpatient psychiatric unit. A general medical consultation was obtained. Appropriate precautions were in place throughout patient's hospital stay. Patient was seen and examined daily on the unit by psychiatry and also visited by counselor. Medications were adjusted. Patient tolerated medication changes well without side effects. Patient had improvement in her presenting psychiatric symptomatology. In particular, her presenting thought disorganization significantly improved, although she did continue to display a somewhat childlike affect. There was no evidence of any suicidality or homicidality on the inpatient unit. Patient's behavior improved with the benefit of psychopharmacologic treatment. The patient has been medication compliant for the last several days prior to discharge. The counselor has arranged for her new assisted living placement, and they can accept the patient today. I have instructed the counselor to update patient's family of the discharge plan. On the day of discharge: Patient seen and examined with counselor. Chart reviewed. Case discussed in treatment team. All agree that the patient is doing well. On my examination today, the patient is in good spirits. We discussed the plan for discharge to [facility], and she is excited about the opportunity to transition to the assisted living setting. We stress the importance of medication adherence outside of the hospital. Mood is good and there are no depressive or hypomanic/manic symptoms present. She denies any suicidal or homicidal ideation. She denies audiovisual hallucinations and I can elicit no delusional beliefs. She denies side effects from medications. She has no physical complaints and reports that her left thigh pain is improved today. I have recommended that she follow-up with primary care. Weighing the acute, chronic, and protective factors and based on the available evidence, I product development manager to a reasonable degree of medical certainty that the patient is at low imminent risk of harm to self or others from a mental illness as defined under the [place] act and her level of function is adequate for planned level of outpatient care. Patient has maximized benefit from this inpatient psychiatric hospital stay and is at this time appropriate for transfer to assisted living level of care. Patient is to follow -up psychiatrically as arranged by counselor. Patient is also to follow-up with primary care. Patient is to return to the psychiatric emergency room for any concerning psychiatric symptoms. Results Blood Pressure 122 / 58 Vital Signs Date Time Temp Pulse Resp B/P Pulse Ox O2 Delivery O2 Flow Rate FiO2 07/25/16 06:01 97.3 80 17 122/58 96 Laboratory Tests Test 07/24/16 07:08 Monocytes (%) (Auto) 15.0 % (0.0-8.0) Summary of Procedures None done Imaging Last Impressions Abdomen Ultrasound 06/06/16 0000 Signed Impressions: Service Date/Time: Monday, June 06, 2016 16:19 - CONCLUSION: 1. The study is limited secondary to combativeness and body habitus. 2. Mild hepatomegaly and hepatic steatosis. Jc Gunn MD Pending results at discharge: No Medications # of Antipsychotic meds at D/C: 2 Appropriate >1 Antipsych meds?: 4 Approp Antipsych med options 1 - Minimum of three failed multiple trials of monotherapy. 2 - Documented plan to taper to monotherapy due to previous use of multiple meds OR cross-taper in progress at D/C. 3 - Documentation of augmentation of Clozapine. 4 - Justification other than those listed in allowable values 1-3, document here : Inadequate response to monotherapy Discharge Discharge Date: July 25, 2016 Discharge Diagnosis: (1) Schizophrenia Diagnosis: Principal (stabilized and improved versus admission) ICD Code: F20.9 GAF on discharge is 55. Mental Status Exam at Disch Patient is casually dressed. She is fairly well groomed and her level of grooming is improved versus admission and she is attending to basic hygiene. She is awake and alert and oriented to person and hospital at least. No evidence of delirium. No abnormal motor movements noted. Speech is within normal limits for rate, tone and volume. Language and fund of knowledge seem average. Mood is good and affect is full and reactive fifth somewhat childlike. Thought process linear. No loosening of associations. No evident delusions. Denies audiovisual hallucinations. Denies suicidal or homicidal ideation, intent or plan. Insight and judgment are poor, likely chronically so. Pt Condition on Discharge: Stable Discharge Disposition: ACLF/ASSISTED Discharge Instructions Diet Instructions: As Tolerated, No Restrictions Activities you can perform: Weight Bearing as Halie Scheduled Appointment: as per counselor's notes New Orders: CBC WITH DIFF - 1 Week CBC WITH DIFF - 08/08/16 CBC WITH DIFF - 08/15/16 CBC WITH DIFF - 08/22/16 CBC WITH DIFF - 08/29/16 CBC WITH DIFF - 09/05/16 CBC WITH DIFF - 09/12/16 CBC WITH DIFF - 09/19/16 CBC WITH DIFF - 09/26/16 CBC WITH DIFF - 10/03/16 CBC WITH DIFF - 10/10/16 CBC WITH DIFF - 10/17/16 CBC WITH DIFF - 10/24/16 CBC WITH DIFF - 10/31/16 CBC WITH DIFF - 11/07/16 CBC WITH DIFF - 11/14/16 CBC WITH DIFF - 11/21/16 CBC WITH DIFF - 11/28/16 CBC WITH DIFF - 12/05/16 CBC WITH DIFF - 12/12/17 CBC WITH DIFF - 12/19/16 CBC WITH DIFF - 12/26/16 CBC WITH DIFF - 01/02/17 CBC WITH DIFF - 01/09/17 New Medications: Clozapine (Clozaril) 25 Mg Tab 50 MG PO DAILY Mental Health Days 15 Ref 1 TAB Clozapine (Clozaril) 100 Mg Tab 150 MG PO HS Mental Health Days 15 Ref 1 TAB Docusate Sodium (Dok) 100 Mg Cap 100 MG PO BID Constipation Days 15 Ref 1 CAP Haloperidol Liq (Haloperidol Liq) 2 Mg/Ml Conc 10 MG PO TID Mental Health Days 15 Ref 1 ML Metoprolol Tartrate (Metoprolol Tartrate) 25 Mg Tab 12.5 MG PO Q12HR Health Days 15 Ref 1 TAB ([Valproic Acid Liq]) 250 MG/5 ML SYRP 750 MG PO BID Mental Health Days 15 Ref 1 ML Continued Medications: Oyster Shell (Oyster Calcium) 500 Mg Tab 1 TAB PO BID Discontinued Medications: Amlodipine (Amlodipine) 5 Mg Tab 5 MG PO DAILY Blood Pressure Management #30 Ref 0 TAB Docusate Sodium (Docusate Sodium) 100 Mg Cap 100 MG PO BID Prevent Constipation #60 Ref 0 CAP Mifflin Carbonate ER (Mifflin Carbonate ER) 450 Mg Tab 450 MG PO DAILY Ref 0 TAB Mifflin Carbonate ER (Mifflin Carbonate ER) 450 Mg Tab 900 MG PO HS Ref 0 TAB Quetiapine (Quetiapine) 400 Mg Tab 400 MG PO BID #60 Ref 0 TAB Trazodone (Trazodone) 100 Mg Tab 100 MG PO HS Control Depression #30 Ref 0 TAB Discharge Time > 30 minutes Discharge/Advance Care Plan Health Problems: (1) Schizophrenia Goals to promote your health * To prevent worsening of your condition and complications * To maintain your health at the optimal level Directions to meet your goals Take your medications as prescribed Follow your dietary instruction Follow activity as directed Keep your appointments as scheduled Take your immunizations and boosters as scheduled If your symptoms worsen call your PCP, if no PCP go to Urgent Care Center or Emergency Room For 24/ questions related to your inpatient stay or results of tests pending at discharge, please contact Dr. Cam Arshad at Smoking is Dangerous to Your Health. Avoid second hand smoking Problem Qualifiers (1) Schizophrenia: Qualified Code: F20.1 - Disorganized schizophrenia Cam Arshad MD July 25, 2016 12:11
== END 2016-07-25 13:00 | DRG 885 ==
LOC: EDBD → NEPJ 08:22 → EDUNIT# 05-29 16:07 → UNDOADMIN 05-29 16:07 → NEDA 05-29 16:07 → H270 05-29 17:31 → NEDA 05-29 17:31 → H270 05-29 18:24
PROVIDERS: ADMIT Psychiatry & Neurology Psychiatry; ATTEND Psychiatry & Neurology Psychiatry
DX: F20.1 Disorganized schizophrenia (principal); K76.0 Fatty (change of) liver, not elsewhere classified; I10 Essential (primary) hypertension; D72.829 Elevated white blood cell count, unspecified; R00.0 Tachycardia, unspecified; R35.8 Other polyuria; R10.9 Unspecified abdominal pain; Z91.14 Patient's other noncompliance with medication regimen; M54.5 Low back pain; R32 Unspecified urinary incontinence; F41.9 Anxiety disorder, unspecified; M79.652 Pain in left thigh; Z81.8 Family history of other mental and behavioral disorders; W19.XXXA Unspecified fall, initial encounter; Y92.239 Unspecified place in hospital as the place of occurrence of the external cause
CPT/HCPCS: 76700; 80048; 80053; 80164; 80178; 80307; 81001; 82140; 83036; 84439; 84443; 84481; 84703; 85025; 87086; 93005; 93306; 96372; J0515; J1200; J1630; J1631; J2060; J3486; Q0163